=== PATIENT | male | born 1950 | race Caucasian/White ===

== ENCOUNTER → 2016-10-17 16:18 | Outpatient (CLI) | payer MEDICARE ==
[2015-02-26 12:28] VITALS: BMI 24.7
[~2016-10-17 16:18] MED LIST: ADOXA100 MG PO; AMBIEN10 MG PO; BROVANA15 MCG/2 M INH; FLOMAX0.4 MG PO; LANOXIN250 MCG PO; PROAIR HFA8.5 GM INH; PULMICORT0.25 MG/1 INH; SYNTHROID125 MCG PO; VITAMIN B-121000 MCG PO; ZOCOR40 MG PO
== END | disposition home or self-care (01) ==
LOC: D.MAMMO 09:30
DX: N63 Unspecified lump in breast (principal)

== ENCOUNTER → 2018-08-20 07:53 | Outpatient (CLI) | payer MEDICARE ==
[2015-02-26 12:28] VITALS: BMI 24.7
== END | disposition home or self-care (01) ==
LOC: D.HCCARDIO 07:53
DX: R94.31 Abnormal electrocardiogram [ECG] [EKG] (principal)

== ENCOUNTER 2018-12-02 03:12 | Inpatient (IN) | payer MEDICARE ==
[2018-12-02] VITALS (7 sets, daily range): BP systolic 102–117; BP diastolic 56–63; BMI 21.2
--- NOTE | 2018-12-02 03:28 | NUR ---
TRAUMA BAND # [id number] LAB AT BEDSIDE.
[2018-12-02 04:17] LABS: BASOPHILS 0.2 % (0-2); EOSINOPHILS 0.5 % (0-7); HEMATOCRIT 34.5 % (42.0-54.0); HEMOGLOBIN 11.2 g/dL (13.5-17.5); IMMATURE GRANULOCYTES 1.1 % (0-5); LYMPHOCYTES 13.8 % (15-50); MCH 33.7 pg (26.0-34.0); MCHC 32.5 g/dL (31.0-37.0); MCV 103.9 fL (80.0-100.0); MEAN PLATELET VOLUME 10.1 fL (7.4-10.4); NEUTROPHILS 73.4 % (40-80); RBC 3.32 10x6/uL (4.20-6.10); RDW 15.4 % (11.5-14.5); WBC 6.2 10x3/uL (4.8-10.8)
[2018-12-02 04:31] LABS: INR 1.01 (0.85-1.17); PLATELET COUNT 158 10x3/uL (130-400); PROTIME 12.8 SECONDS (11.6-15.0)
[2018-12-02 04:32] LABS: APTT 33.8 SECONDS (22.8-39.4)
[2018-12-02 04:37] LABS: ALBUMIN 2.3 g/dL (3.4-5.0); ANION GAP 9.4 mmol/L (8-16); BILIRUBIN - TOTAL 0.36 mg/dL (0.2-1.3); CALCIUM 8.8 mg/dL (8.5-10.1); CARBON DIOXIDE 32.1 mmol/L (21.0-32.0); CREATININE - SERUM 1.5 mg/dL (0.6-1.3); POTASSIUM - SERUM 4.5 mmol/L (3.5-5.1); PROTEIN - SERUM 7.2 g/dL (6.4-8.2)
[2018-12-02 04:52] LABS: CKMB 0.9 U/L (0.0-3.6); MAGNESIUM - SERUM 2.2 mg/dL (1.8-2.4); TROPONIN-I 0.022 ng/mL (0.000-0.060)
--- NOTE | 2018-12-02 07:07 | NUR ---
PT REPORT HANDED OFF AT BEDSIDE VIA SBAR TO KAYLEY MUNOZ
[2018-12-02 13:03] LABS: % SATURATION 16 % (15-55); IRON 31 ug/dl (35-150); TOTAL IRON BIND CAPACITY 186 ug/dl (260-445); UNSAT IRON BIND CAPACITY 155 ug/dl (150-375)
[2018-12-03] VITALS (14 sets, daily range): BP systolic 94–120; BP diastolic 36–72
[2018-12-03 05:27] LABS: BASOPHILS 0.2 % (0-2); EOSINOPHILS 2.7 % (0-7); HEMATOCRIT 30.7 % (42.0-54.0); HEMOGLOBIN 9.8 g/dL (13.5-17.5); IMMATURE GRANULOCYTES 0.8 % (0-5); LYMPHOCYTES 17.9 % (15-50); MCH 33.4 pg (26.0-34.0); MCHC 31.9 g/dL (31.0-37.0); MCV 104.8 fL (80.0-100.0); MEAN PLATELET VOLUME 10.3 fL (7.4-10.4); MONOCYTES 9.2 % (2-11); NEUTROPHILS 69.2 % (40-80); RBC 2.93 10x6/uL (4.20-6.10); RDW 15.5 % (11.5-14.5); WBC 5.2 10x3/uL (4.8-10.8)
[2018-12-03 05:33] LABS: PLATELET COUNT 118 10x3/uL (130-400)
[2018-12-03 05:49] LABS: ALBUMIN 1.8 g/dL (3.4-5.0); ANION GAP 7.8 mmol/L (8-16); BILIRUBIN - TOTAL 0.4 mg/dL (0.2-1.3); CALCIUM 8.7 mg/dL (8.5-10.1); CARBON DIOXIDE 32.5 mmol/L (21.0-32.0); CREATININE - SERUM 1.3 mg/dL (0.6-1.3); POTASSIUM - SERUM 4.3 mmol/L (3.5-5.1); PROTEIN - SERUM 6.9 g/dL (6.4-8.2)
--- NOTE | 2018-12-03 08:00 | NUR ---
PLASMA BLADE SET TO 6/8 BOVIE PAD LEFT THIGH [id number] EXP 03/14/2020
--- NOTE | 2018-12-03 10:32 | NUR ---
MARC WOULD LIKE US TO CALL HER WITH UPDATES CELL [phone]. IF EMERGENCY ARISES AND SHE CAN NOT BE REACHED MARIE HARGROVE CAN BE CONTACTED AT [phone].
[2018-12-03 11:13] LABS: FOLATE (FOLIC ACID) - SERUM >20.0 ng/mL (>3.0)
--- NOTE | 2018-12-03 12:51 | NUR ---
PATIENT HAS A COMPLAINT OF 8 AT THIS TIME. CONCERNED OVER BP IN HIGH 90/50S. EXPLAINED THIS TO HIM. HE VOICED UNDERSTANDING. WCTM
--- NOTE | 2018-12-03 15:05 | OP ---
PATIENT NAME: AMY DYER JR MEDICAL RECORD: [id number] :48 LOCATION:D.MS [id number] ADMISSION DATE:12/02/18 SURGEON: TONG BALDERRAMA DO DATE OF OPERATION: 12/03/2018 PROCEDURE PERFORMED: Right total hip arthroplasty. PREOPERATIVE DIAGNOSIS: Displaced closed right femoral neck fracture. POSTOPERATIVE DIAGNOSIS: Displaced closed right femoral neck fracture. INDICATIONS: Mr. Dyer is a 68-year-old male who has had a lung cancer in the past and a lobectomy. He has had the left hip replaced years ago. He was walking and fell yesterday after getting out of bed after getting up to get a drink and fell right onto his right hip, sustained a right femoral neck fracture, displaced. He was admitted to the hospital. X-rays were taken and it was noted. I consented him for a total hip as he said he is pretty active versus a bipolar and informed him of the risks and benefits including infection, bleeding, damage to nerves and vessels, blood clots, and even . He signed the consent. SURGEON: Tong Balderrama DO DESCRIPTION OF PROCEDURE: The patient was given a block by anesthesia in the preoperative area, taken to the operative suite, laid in supine position, given general anesthetic, sedated then intubated, given a gram of vancomycin due to his PENICILLIN ALLERGY. He was then moved over to the [place] table. The right hip was prepped and draped in sterile fashion. Timeout was performed, everyone was in agreement of the correct side, site, patient, and procedure. Incision then began over the tensor fascia patric muscle. Dissection was made down to the tensor fascia patric fascia. This was incised and taken superiorly and muscle inferiorly. Then, the interval between the rectus was developed and the ascending branch of the lateral femoral circumflex was encountered. It was coagulated with Aquamantys and tied and then divided. The capsule was then exposed. Hohmanns were placed on the inferior and superior part of the neck. Capsule was then opened and tagged. The Hohmanns were then moved into the inside of the capsule. I freshened up the neck cut due to the fracture and then the head was removed. Once head was removed, a Charnley was placed on the capsule superiorly, anteriorly, and posteriorly. The reaming then began up to a 56 cup. This was impacted in place, had good solid fixation. The liner was then put in. The femur was then exposed and first the canal finder, then the Proginet cutter was used. Then, broaching began up to a 12. This was trialled and seen to be a little small. Then we took that out and trialed up to 15 and then a standard neck was used. This seemed to fit well, had good lengths compared to the other side on AP pelvis. The trials were then removed. The actual implant was then impacted in, 15 stem, standard offset and a 44 dual mobility bearing was impacted in. The hip was then reduced and x-rays were taken and seen to be in very good position. The capsule was then closed with the tag stitch of #2 Ethibond and it was thoroughly irrigated and Surgicel powder and vancomycin and tobramycin powder was placed in the wound. The tensor fascia patric fascia was then closed using #1 Vicryl, first a [id number]-zhjse and then a running locking stitch. Skin was then closed with 2-0 Vicryl in an inverted interrupted fashion and a 4-0 Monocryl ran on the skin and then Prineo placed on the skin. The patient was then awakened and taken to recovery in stable condition. Blood loss approximately 300 mL. OPERATIVE REPORT [id number] AMY DYER JR COMPLICATIONS: None. TRANSINT:[id number] Voice Confirmation ID: [id number] DOCUMENT ID: [id number] TONG BALDERRAMA DO at 1505 CC: [id number] DICTATION DATE: 12/03/18909 TRAIN SYSTEM OPERATOR: 12/03/18 1344 ADM IN [facility] [address] [id number]
--- NOTE | 2018-12-03 16:20 | NUR ---
PATIENT HAS BEEN ATTEMPTING TO GET AHOLD OF TO TALK. FINALLY ABLE TO CONTACT HER. TRANSFERRED CALL INTO ROOM
--- NOTE | 2018-12-03 20:16 | NUR ---
PT IN BED LOW POSITION, EYES OPEN, TALKING ON PHONE, NO NEEDS NOTED, FLUIDS AND CALL LIGHT WITHIN REACH
--- NOTE | 2018-12-03 20:41 | NUR ---
PT REQUESTING PAIN MEDICATION, GAVE PRN 10MG OF OXYCODONE IR, PAIN 8 OF 10, FLUIDS AND CALL LIGHT WITHIN REACH
[2018-12-04 02:05] VITALS: BP 117/61
[2018-12-04 05:21] LABS: HEMATOCRIT 26.9 % (42.0-54.0); HEMOGLOBIN 8.6 g/dL (13.5-17.5); MCH 33.2 pg (26.0-34.0); MCV 103.9 fL (80.0-100.0); MEAN PLATELET VOLUME 10.2 fL (7.4-10.4); RBC 2.59 10x6/uL (4.20-6.10); RDW 15.1 % (11.5-14.5)
[2018-12-04 05:24] VITALS: BP 93/54
--- NOTE | 2018-12-04 07:55 | NUR ---
PT IS RESTING IN BED WITH EYES OPEN. RESPIRATIONS ARE EVEN AND UNLABORED. PT IS AAO X4. PT REPORTS SLIGHT PRESENCE OF PAIN TO RIGHT HIP, BUT DENIES NEEDS AT THIS TIME. DRESSING TO RIGHT HIP IS C/D/I. PT DENIES PRESENCE OF N/V. BED IS IN THE LOWEST POSITION. CALL LIGHT AND BEDSIDE TABLE ARE WITHIN REACH. SIDE RAILS X 2. BED ALARM IS ON. PT DENIES FURTHER NEEDS. WILL CONT TO MONITOR.
[2018-12-04 08:40] VITALS: BP 114/61
--- NOTE | 2018-12-04 12:10 | NUR ---
NUTRITION F/U CHART REVIEWED, PT VISIT. TOLERATING REG DIET WITH GOOD INTAKE RECENT MEALS. WILL CONTINUE TO PROVIDE DIET, HONOR FOOD PREFERENCES. RD FOLLOWING
[2018-12-04 12:40] VITALS: BP 134/73
--- NOTE | 2018-12-04 15:51 | NUR ---
PT IS DISORIENTED TO SITUATION, PLACE AND TIME. PT REORIENTED TO SITUATION PLACE AND TIME. BED ALARM IS ON AND WORKING. GÉNESIS WOLFE APRN NOTIFIED OF PT STATUS CHANGE.
--- NOTE | 2018-12-04 16:15 | MORECARE ---
CASE MANAGEMENT DISCHARGE SUMMARY PATIENT: AMY BRONSON JR UNIT: [id number] ADM DATE: 12/02/18 AGE: 68 : 49 SEX: M ROOM/BED: D.2204 AUTHOR: BLANCA GERONIMO PHYSICIAN: REFERRING PHYSICIAN: DMITRIY CORRAL MD DATE OF SERVICE: 12/04/18 Discharge Plan Patient Name: AMY BRONSON [facility] [facility] 1950 Planned Disposition: Group Home Facility Anticipated Discharge Date: Discharge Date: Expected LOS: Initial Reviewer: [email or web address] Initial Review Date: 12/02/2018 Generated: 12/04/18 5:15 pm DCPIA - Discharge Planning Initial Assessment Updated by [email or web address]: Maria Elena Edwards on 12/04/18 4:11 pm * Is the patient Alert and Oriented? Yes * PCP T[facility] * [facility] * Preadmission Environment Home with Family * ADLs Partial Dependent * Partial ADLs (Assistance needed) Dressing Toileting * Equipment Rolling Walker * List name and contact numbers for known caregivers / representatives who currently or will assist patient after discharge: MARC () [phone] * Verbal permission to speak to the caregivers and representatives has been obtained from the patient. Yes * Community resources currently utilized None * Additional services required to return to the preadmission environment? Yes * Can the patient safely return to the preadmission environment? No * Has this patient been hospitalized within the prior 30 days at any hospital? No External Providers External Provider: [facility] Next Contact Date: Service Request Date: Service Type: Resolution: Reviewer: Comments: Patient Name: AMY BRONSON Page 70312 at 1615 All edits/amendments must be made on the electronic document DICTATION DATE: 12/04/181613 SALES ENABLEMENT MANAGER: LEWIS 12/04/181613 RPT#: [id number] DC DATE: STATUS: ADM IN [facility] [address] [place] [address] END OF REPORT
--- NOTE | 2018-12-04 16:22 | MORECARE ---
CASE MANAGEMENT DISCHARGE SUMMARY PATIENT: AMY BRONSON JR UNIT: [id number] ADM DATE: 12/02/18 AGE: 68 : 49 SEX: M ROOM/BED: D.2204 AUTHOR: GRAZYNA,DOC PHYSICIAN: REFERRING PHYSICIAN: DMITRIY CORRAL MD DATE OF SERVICE: 12/04/18 Discharge Plan Patient Name: AMY BRONSON Facility: [facility]:[place] : 1950 Planned Disposition: Residential Facility Anticipated Discharge Date: Discharge Date: Expected LOS: Initial Reviewer: [email or web address] Initial Review Date: 12/02/2018 Generated: 12/04/18 5:21 pm Comments DCP- Discharge Planning Updated by [email or web address]: Maria Elena Edwards on 12/04/18 3:[address] Patient Name: AMY BRONSON Admission Status: ER Accout number: [id number] Admission Date: 12-02-2018 : 1950 Admission Diagnosis: Attending: DMITRIY CORRAL Current LOS: 2 Anticipated DC Date: Planned Disposition: Residential Facility Primary Insurance: [employer] ADV Discharge Planning Comments: CM met with patient to assess discharge planning needs. Patient is alert and oriented to person and time. He stated that he can go home and he will be fine. He lives with his Arianna and has a walker. I explained to him that therapy and nursing did not think he was safe to go home yet and will need to go to rehab, he said he would have help from his neighbor to help him move and he will be fine. Permission to call his . I called Arianna his and she stated that she can not take care of him at home. He needs more help that she can give, talked to her about skilled facilities she state [facility] in [place] his her first choice I have sent referral to them. IMM also explained. CM will continue to follow and assist with DC planning [facility]: Maria Elena Edwards DCPIA - Discharge Planning Initial Assessment Updated by [email or web address]: Maria Elena Edwards on 12/04/18 4:11 pm * Is the patient Alert and Oriented? Yes * PCP TUN[facility] * [facility] * Preadmission Environment Home with Family * ADLs Partial Dependent * Partial ADLs (Assistance needed) Dressing Toileting * Equipment Rolling Walker * List name and contact numbers for known caregivers / representatives who currently or will assist patient after discharge: ARIANNA () [phone] * Verbal permission to speak to the caregivers and representatives has been obtained from the patient. Yes * Community resources currently utilized None * Additional services required to return to the preadmission environment? Yes * Can the patient safely return to the preadmission environment? No * Has this patient been hospitalized within the prior 30 days at any hospital? No Coverage Notice Reviewer: [id number] Merna Edwards Notice Issued Date-Time: 12/04/2018 16:00 Notice Type: IM Discharge Notice Notice Delivered To: Patient Relationship to Patient: Spouse Specification Manager Name: arianna Delivery Method: PHONE - Phone Kera Days: Prior Verbal Notification: Yes Recipient Understood Notice: Recipient Signature: Med Rec Note Co-signed by Attending: Coverage Notice Comment: Reviewer: [id number] Edwards Notice Issued Date-Time: 12/04/2018 16:00 Notice Type: Patient Choice Letter Notice Delivered To: Family Member Relationship to Patient: Spouse Specification Manager Name: Arianna Delivery Method: PHONE - Phone Kera Days: Prior Verbal Notification: Yes Recipient Understood Notice: Recipient Signature: Med Rec Note Co-signed by Attending: Coverage Notice Comment: Last DP export: 12/04/18 3:15 p Patient Name: AMY BRONSON Page [phone] at 1622 All edits/amendments must be made on the electronic document DICTATION DATE: 12/04/181620 MEDICATION ASSISTANT: LEWIS 12/04/181620 RPT#: [id number] DC DATE: STATUS: ADM IN [facility] [address] [place] [address] END OF REPORT
--- NOTE | 2018-12-04 16:34 | NUR ---
PT IS ORIENTED TO SELF, AND SITUATION. PT IS DISORIENTED TO TIME AND PLACE. PT REORIENTED TO TIME AND PLACE. BED ALARM IS ON AND WORKING. BED IS IN THE LOWEST POSITION. CALL LIGHT AND BEDSIDE TABLE ARE WITHIN REACH. SIDE RAILS X 2.
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
[2018-12-04 17:34] VITALS: BP 102/44
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
--- NOTE | 2018-12-04 19:34 | NUR ---
DR CORRAL NOTIFIED OF PT STATUS AND BEHAVIOR. TELEPHONE ORDERS RECD ARE 5MG GEODON IM [id number] PRN.
[2018-12-04 19:56] LABS: APPEARANCE CLEAR (CLEAR); BILIRUBIN NEGATIVE (NEGATIVE); COLOR YELLOW (YELLOW); GLUCOSE NEGATIVE (NEGATIVE); KETONE NEGATIVE (NEGATIVE); NITRITE NEGATIVE (NEGATIVE); PROTEIN TRACE mg/dL (NEGATIVE); SPECIFIC GRAVITY 1.015 (1.005-1.020)
[2018-12-04 19:57] LABS: AMORPHOUS SEDIMENT >1+ /lpf (NONE SEEN); BACTERIA MODERATE /hpf (NONE SEEN); EPITHELIAL CELLS 0-5 /hpf (0-5); GRANULAR CAST 0-5 /lpf (NONE SEEN); HYALINE CAST RARE /lpf (NONE SEEN); RED CELLS - URINE 0-5 /hpf (0-5); WHITE CELLS - URINE 0-5 /hpf (0-5)
[2018-12-04 20:49] VITALS: BP 112/40
[2018-12-05] VITALS (9 sets, daily range): BP systolic 95–125; BP diastolic 44–63
--- NOTE | 2018-12-05 01:02 | NUR ---
ASSESSED AT THE BEGINNING OF THE SHIFT. PT WAS CONFUSED AND DEMANDING TO GO HOME. HIS FAMILY HAD COME TO SEE HIM AND HE WAS TRYING TO GET OUT OF BED AND DEMANDING THAT THEY TAKE HIM HOME. HE RECEIVED A DOSE OF HALDOL ORDERED BY MD TO HELP GET HIM CALMED DOWN. HIS FAMILY FINALLY LEFT AND HE WAS MAD AND TRYING TO GET UP TO LEAVE. AT THIS POINT WE GAVE HIM AN ORDERED DOSE OF GEODON. ONCE HE REALIZED HIS FAMILY HAD LEFT AND HE HAD NO WAY HOME HE QUIETED DOWN. HE HAS ALSO ASKED FOR PAIN MEDS AND AT THIS TIME IS RESTING QUIET.
[2018-12-05 04:19] LABS: HEMATOCRIT 26.6 % (42.0-54.0); HEMOGLOBIN 8.5 g/dL (13.5-17.5); MCH 33.2 pg (26.0-34.0); MCV 103.9 fL (80.0-100.0); MEAN PLATELET VOLUME 9.9 fL (7.4-10.4); RBC 2.56 10x6/uL (4.20-6.10); RDW 15.3 % (11.5-14.5); WBC 5.5 10x3/uL (4.8-10.8)
--- NOTE | 2018-12-05 10:40 | NUR ---
PT FOUND KNEELING BESIDE BED, ON KNEES. ROGERIO ALARM ON AND WORKING PROPERLY AT THIS TIME. PT WAS TRYING TO GET TO THE PHONE AT TIME OF INCIDENT. NO INJURIES NOTED AT THIS TIME. WILL CONTINUE TO MONITOR.
--- NOTE | 2018-12-05 15:37 | NUR ---
I have reviewed this patient and I concur with the Shift Assessment completed by the Licensed Practical Nurse today this shift.
--- NOTE | 2018-12-05 19:00 | NUR ---
REPORT RECEIVED AND CARE OF PT ASSUMED. PT LYING IN HIGH LAY'S POSITION WITH EYES CLOSED. IV IN LEFT FA PATENT WITH 1/2 NS INFUSING AT 100 ML / HR. TELEMETRY IN USE AND READING UNCONTROLLED A-FIB AT 112 AT THIS ASSESSMENT. WILL MONITOR FOR NEEDS.
--- NOTE | 2018-12-05 20:19 | NUR ---
HS MEDICATIONS GIVEN TO INCLUDE OXY PO PER REQUEST FOR PAIN. WILL CONTINUE TO MONITOR FOR NEEDS.
[2018-12-06 00:53] VITALS: BP 113/65
--- NOTE | 2018-12-06 02:34 | NUR ---
PT SLEEPING IN HIGH LAY'S POSITION WITH EYES CLOSED AND EASEY RESPIRATIONS. SIDE RAILS UP X2 AND BED ALARM IN USE FOR SAFETY.
[2018-12-06 05:41] LABS: BASOPHILS 0.1 % (0-2); EOSINOPHILS 2.1 % (0-7); HEMATOCRIT 25.5 % (42.0-54.0); HEMOGLOBIN 8.1 g/dL (13.5-17.5); LYMPHOCYTES 12.9 % (15-50); MCH 33.3 pg (26.0-34.0); MCHC 31.8 g/dL (31.0-37.0); MCV 104.9 fL (80.0-100.0); MEAN PLATELET VOLUME 10.2 fL (7.4-10.4); NEUTROPHILS 72.9 % (40-80); PLATELET COUNT 149 10x3/uL (130-400); RBC 2.43 10x6/uL (4.20-6.10); RDW 15.5 % (11.5-14.5)
[2018-12-06 05:50] LABS: WBC 7.1 10x3/uL (4.8-10.8)
[2018-12-06 06:01] VITALS: BP 102/46
[2018-12-06 09:08] VITALS: BP 117/65
--- NOTE | 2018-12-06 12:18 | CN ---
PATIENT NAME:AMY BRONSON JR MEDICAL RECORD: [id number] : 48 LOCATION:D.MS Rader2204 ADMIT DATE: 12/02/18 ACCOUNT: [id number] CONSULTING PHYSICIAN: DIXIE TOBIN MD REFERRING PHYSICIAN: DMITRIY CORRAL MD DATE OF CONSULTATION: 12/05/2018 Psychiatric Consultation IDENTIFYING DATA: The patient is 68 years old and he was admitted to the hospital secondary to a hip fracture. CHIEF COMPLAINT: "I want to go home." HISTORY OF PRESENT ILLNESS: The patient presents a very difficult situation that is complex and I shall try to summarize it as concisely as possible. He is clearly a low functioning individual well below average in intelligence who is also quite determined when he makes his mind up about something. He is telling me that he has to go home because he is going to be homeless and he has to pay the bills. The long and short of this situation is I called the and spoken with her as the patient says she does not drive and only he can pay the bills because the $1500 check he gets is made out to him. He cannot sign it and deposit it in the bank because he does not have a bank account. Every month, he takes his check to one of these check cashing facilities and with his identification signs in front of them, they give him the bach and then he disperses it to pay his bills as appropriate either with bach or money order. He has no arrangements for any alternative. He has children who live out of state. Neither of them want anything to do with him for reasons that are unknown. The does not drive. She is clearly a low functioning when I speak with her on the phone. Her primary concern is how do I get his check cashed and pay the bills. She says she cannot care for him and that she was having trouble caring for him before he came to the hospital. She says that he drinks, but does not want anyone to know that she is telling us that. She says that he is not threatening, abusive, or acting bizarre in any way, but he often will just simply do things that are contrary to what he has been asked to do in a manner that are almost is as though he is deliberately being difficult. She says that he takes pain medicines and Ambien at home and that she notices confusion when he does this. The patient is unable to walk. She says she cannot care for him. The patient says he wants us to call an ambulance to take him home. Obviously, there is no one who can come and get him and he cannot walk out the door because he cannot walk. He just had hip surgery and in fact he fell today when he tried to get up and walk. He does not want to hurt himself. He does not want to hurt anyone else. He is not threatening toward anyone. He does have some clear evidence of confusion. MENTAL STATUS EXAMINATION: The patient is awake, alert and oriented to person, place and situation. He is mistaken about the date. He tells me the year is . When asked if that means 1918 or something else. He says no, 1918. He does know it is November. He does not know what day. He knows that he knows why he is in the hospital. He knows that he has had surgery. He says that he does not want to do anything except go home and pay his bills. He also says that he does not drink, which contradicts what his has said behind his back and he denies that he wants to hurt anyone else or has any psychotic symptoms, which is consistent with what his says. CONSULT REPORT [id number] AMY BRONSON JR ASSESSMENT: Delirium secondary to multiple factors. 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 I do not think he is currently capable of making reasonable informed consent decisions about his person or state and he is clearly unable to walk. I have told him that he is not going to go home that he needs to go to rehab and follow the instructions that rehabilitation is going to give him about getting stronger. In addition to this, I have made some recommendations regarding pharmacology. I am going to give him a low dose of an antipsychotic medication along with a scheduled dose of Klonopin to assist with his anxiety and thought disorganization. Also, a p.r.n. dose of Geodon has been ordered in case he becomes agitated. Currently, he does not meet criteria for an inpatient psychiatric stay based upon the absence of acute dangerousness. I think he is delirious and that if given another day or two in the hospital his cognition should hopefully clear enough to where he will understand that he has to have rehabilitative services in order to be able to walk again. I am not sure if anything can be done from a social work standpoint to assist him with the check and the bills that he is so focused on. Overall, I think his prognosis is fairly guarded and unless he will begin assisting with his own recovery by working in physical and occupational therapy. TRANSINT:[id number] Voice Confirmation ID: [id number] DOCUMENT ID: [id number] DIXIE TOBIN MD at 1218 CC: [id number] DICTATION DATE: 12/05/18 1540 PRINTED CIRCUIT LAYOUT TAPER: 12/06/18 0016 ADM IN [facility] [address] [place] [address]
[2018-12-06 12:53] VITALS: BP 109/56
--- NOTE | 2018-12-06 13:50 | NUR ---
RECEIVED REPORT FROM LUCILA ARAUJO TO TAKE OVER HER PATIENT AT THIS TIME, PT IS IN STABLE CONDITON CL IN REACH
[2018-12-06 18:39] VITALS: BP 110/54
--- NOTE | 2018-12-06 19:00 | NUR ---
REPORT RECEIVED AND CARE OF PT ASSUMED. PT LYING IN HIGH LAY'S POSITION WATCHING TV. IV IN LEFT FA PATENT WITH 1/2 NS INFUSING AT 50 ML / HR. TELEMETRY IN PLACE AND READING 96 CONT A-FIB AT THIS ASSESSMENT. WILL MONITOR FOR NEEDS.
[2018-12-06 19:53] VITALS: BP 100/53
--- NOTE | 2018-12-06 21:32 | NUR ---
HS MEDICATIONS GIVEN TO INCLUDE OXY 5 MG PO PER REQUEST FOR PAIN. WILL CONTINUE TO MONITOR FOR NEEDS.
[2018-12-07 00:59] VITALS: BP 102/69
[2018-12-07 04:58] VITALS: BP 92/42
[2018-12-07 05:35] LABS: BASOPHILS 0.1 % (0-2); EOSINOPHILS 2.6 % (0-7); HEMATOCRIT 24.9 % (42.0-54.0); HEMOGLOBIN 7.8 g/dL (13.5-17.5); LYMPHOCYTES 11.6 % (15-50); MCH 33.1 pg (26.0-34.0); MCHC 31.3 g/dL (31.0-37.0); MCV 105.5 fL (80.0-100.0); MEAN PLATELET VOLUME 10.5 fL (7.4-10.4); NEUTROPHILS 71.7 % (40-80); RBC 2.36 10x6/uL (4.20-6.10); RDW 15.7 % (11.5-14.5); WBC 7.3 10x3/uL (4.8-10.8)
[2018-12-07 05:42] LABS: PLATELET COUNT 179 10x3/uL (130-400)
[2018-12-07 05:51] LABS: ANION GAP 14.7 mmol/L (8-16); CALCIUM 8.6 mg/dL (8.5-10.1); CARBON DIOXIDE 27.2 mmol/L (21.0-32.0); CREATININE - SERUM 1.8 mg/dL (0.6-1.3); POTASSIUM - SERUM 3.9 mmol/L (3.5-5.1)
[2018-12-07 09:26] VITALS: BP 112/51
[2018-12-07 13:27] VITALS: BP 96/59
--- NOTE | 2018-12-07 14:20 | NUR ---
OT NOTE: ASSISTED BACK TO BED WITH WALKER AND MIN/MOD ASSIST; PT URINATED ON HIMSELF DURING TRANSFER..PROVIDED NEW GOWN AND MIN ASSIST TO RAMSEY; CLEAN SOCKS AND MOD ASSIST TO RAMSEY. ABLE TO WASH HANDS, FACE, AND UPPER BODY WITH CLOTH WITH SET UP. PT ORIENTED TO PERSON AND PLACE..DISORIENTED TO TIME. ERIKA VOSS, OTR/L
[2018-12-07 18:09] VITALS: BP 97/63
--- NOTE | 2018-12-07 18:12 | MORECARE ---
CASE MANAGEMENT DISCHARGE SUMMARY PATIENT: AMY BRONSON JR UNIT: [id number] ADM DATE: 12/02/18 AGE: 68 : 49 SEX: M ROOM/BED: D.2204 AUTHOR: GRAZYNA,DOC PHYSICIAN: REFERRING PHYSICIAN: DMITRIY CORRAL MD DATE OF SERVICE: 12/07/18 Discharge Plan Patient Name: AMY BRONSON Facility: [facility]:[place] : 1950 Planned Disposition: Alf Facility Anticipated Discharge Date: Discharge Date: Expected LOS: Initial Reviewer: [id number] Initial Review Date: 12/02/2018 Generated: 12/07/18 7:12 pm Comments DCP- Discharge Planning Updated by [id number]: Janine Murphy on 12/07/18 5:[address] PRIMARY NURSE REPORTS THAT THE PATIENT'S CALLED AND SAID ALL THE UTILITIES ARE OFF AND THEY HAVE 3 DAYS TO GET THEIR BELONGINGS OUT. PATIENT IS VERY UPSET WANTING TO LEAVE. HE HAS A RAPID HEART RATE. HE IS IN UNCONTROLLED AFIB. TELEMETRY. STARTED CARDIZEM 30 MGM Q6H ON 12/06. HE ALSO HAS DECREASING H/H. IS ON 4/L NASAL O2. THE NURSE CALLED AND SPOKE WITH THE DAUGHTER. PATIENT'S IS WITH HER. REPORTEDLY THE PATIENT HAS A CHECK. HE MUST GALE TO PAY BILLS. QUESTION OF CIRCUMSTANCE OF HOUSING AND HIS CARE PRIOR TO ADMIT. POSSIBLE APS . REPORTEDLY THE PATIENT HAD BEEN HOME ALONE. WAS UNKEMPT ON ADMISSION. ?? MENTAL HEALTH ISSUES W/ . AMBULANCE CREW MAY HAVE DONE REPORT. WILL NEED TO F/U [facility] MAIN OFFICE IN [place] ON SATURDAY. DCP- Discharge Planning Updated by [id number]: Maria Elena Edwards on 12/04/18 3:[address] Patient Name: AMY BRONSON Admission Status: ER Accout number: [id number] Admission Date: 12-02-2018 : 1950 Admission Diagnosis: Attending: DMITRIY CORRAL Current LOS: 2 Anticipated DC Date: Planned Disposition: Alf Facility Primary Insurance: WELL[employer] MEDICARE ADV Discharge Planning Comments: CM met with patient to assess discharge planning needs. Patient is alert and oriented to person and time. He stated that he can go home and he will be fine. He lives with his Arianna and has a walker. I explained to him that therapy and nursing did not think he was safe to go home yet and will need to go to rehab, he said he would have help from his neighbor to help him move and he will be fine. Permission to call his . I called Arianna his and she stated that she can not take care of him at home. He needs more help that she can give, talked to her about skilled facilities she state [facility] in [place] his her first choice I have sent referral to them. IMM also explained. CM will continue to follow and assist with DC planning Editorial Cartoonist: Maria Elena Edwards DCPIA - Discharge Planning Initial Assessment Updated by [id number]: Maria Elena Edwards on 12/04/18 4:11 pm * Is the patient Alert and Oriented? Yes * PCP [facility] * [facility] * Preadmission Environment Home with Family * ADLs Partial Dependent * Partial ADLs (Assistance needed) Dressing Toileting * Equipment Rolling Walker * List name and contact numbers for known caregivers / representatives who currently or will assist patient after discharge: ARIANNA () [phone] * Verbal permission to speak to the caregivers and representatives has been obtained from the patient. Yes * Community resources currently utilized None * Additional services required to return to the preadmission environment? Yes * Can the patient safely return to the preadmission environment? No * Has this patient been hospitalized within the prior 30 days at any hospital? No Coverage Notice Reviewer: [id number] Merna Edwards Notice Issued Date-Time: 12/04/2018 16:00 Notice Type: IM Discharge Notice Notice Delivered To: Patient Relationship to Patient: Spouse Supervisor Show Operations Name: arianna Delivery Method: PHONE - Phone Kera Days: Prior Verbal Notification: Yes Recipient Understood Notice: Recipient Signature: Med Rec Note Co-signed by Attending: Coverage Notice Comment: Reviewer: [id number] Merna Edwards Notice Issued Date-Time: 12/04/2018 16:00 Notice Type: Patient Choice Letter Notice Delivered To: Family Member Relationship to Patient: Spouse Supervisor Show Operations Name: Arianna Delivery Method: PHONE - Phone Kera Days: Prior Verbal Notification: Yes Recipient Understood Notice: Recipient Signature: Med Rec Note Co-signed by Attending: Coverage Notice Comment: Last DP export: 12/04/18 3:22 p Patient Name: AMY BRONSON Page [id number] at 1812 All edits/amendments must be made on the electronic document DICTATION DATE: 12/07/181810 PROTECTIVE SIGNAL SUPERINTENDENT: LEWIS 12/07/181810 RPT#: [id number] DC DATE: STATUS: ADM IN [facility] [address] [place] [address] END OF REPORT
--- NOTE | 2018-12-07 19:00 | NUR ---
REPORT RECEIVED AND CARE OF PT ASSUMED. PT LYING IN HIGH LAY'S POSITION WATCHING TV. IV IN LEFT FA PATENT WITH 1/2 NS INFUSING AT 100 ML / HR. TELEMETRY IN PLACE AND READING 88 CONTROLLED A-FIB AT THIS ASSESSMENT. DRESSING ON RIGHT HIP CLEAN AND DRY. WILL MONITOR FOR NEEDS.
--- NOTE | 2018-12-07 19:50 | NUR ---
I have reviewed this patient and I concur with the Shift Assessment completed by the Licensed Practical Nurse today this shift.
--- NOTE | 2018-12-07 20:39 | NUR ---
HS MEDICATIONS GIVEN. WILL CONTINUE TO MONITOR FOR NEEDS.
[2018-12-07 21:05] VITALS: BP 115/52
[2018-12-08] VITALS (23 sets, daily range): BP systolic 94–129; BP diastolic 46–74
[2018-12-08 05:18] LABS: BASOPHILS 0.2 % (0-2); EOSINOPHILS 1.4 % (0-7); HEMATOCRIT 24.3 % (42.0-54.0); HEMOGLOBIN 7.6 g/dL (13.5-17.5); LYMPHOCYTES 10.5 % (15-50); MCH 32.9 pg (26.0-34.0); MCHC 31.3 g/dL (31.0-37.0); MCV 105.2 fL (80.0-100.0); MEAN PLATELET VOLUME 9.7 fL (7.4-10.4); MONOCYTES 11.5 % (2-11); NEUTROPHILS 72.4 % (40-80); PLATELET COUNT 168 10x3/uL (130-400); RBC 2.31 10x6/uL (4.20-6.10); RDW 15.7 % (11.5-14.5); WBC 6.5 10x3/uL (4.8-10.8)
[2018-12-08 05:32] LABS: ANION GAP 11.5 mmol/L (8-16); CALCIUM 7.9 mg/dL (8.5-10.1); CARBON DIOXIDE 26.3 mmol/L (21.0-32.0); CREATININE - SERUM 1.7 mg/dL (0.6-1.3); POTASSIUM - SERUM 3.8 mmol/L (3.5-5.1)
--- NOTE | 2018-12-08 07:45 | NUR ---
PT SITTING UP IN BED. NO ACUTE DISTRESS NOTED. O2 @ 3L NC IN PLACE. REPORTS PAIN 04/21. EDUCATED PT PAIN MEDICATION ADMINISTERED @ 0620. PT VOICES UNDERSTANDING. IV TO LEFT FOREARM WITH 1/2 NS @ 100ML/HR INFUSING VIA PUMP. SITE WITHOUT REDNESS OR EDEMA. DENIES FURTHER NEEDS AT THIS TIME. CL WITHIN REACH. ECOURAGED TO CALL WITH NEEDS. CONTINUE POC
--- NOTE | 2018-12-08 09:01 | MORECARE ---
CASE MANAGEMENT DISCHARGE SUMMARY PATIENT: AMY BRONSON JR UNIT: [id number] ADM DATE: 12/02/18 AGE: 68 : 49 SEX: M ROOM/BED: D.2204 AUTHOR: GRAZYNA,DOC PHYSICIAN: REFERRING PHYSICIAN: DMITRIY CORRAL MD DATE OF SERVICE: 12/08/18 Discharge Plan Patient Name: AMY BRONSON Facility: [facility]:[place] : 1950 Planned Disposition: Custodial Facility Anticipated Discharge Date: Discharge Date: Expected LOS: Initial Reviewer: [id number] Initial Review Date: 12/02/2018 Generated: 12/08/18 10:01 am DCP- Discharge Planning Updated by [id number]: Maria Elena Edwards on 12/08/18 7:[address] updated clinicals sent to [facility] DCP- Discharge Planning Updated by [id number]: Janine Murphy on 12/07/18 5:[address] PRIMARY NURSE REPORTS THAT THE PATIENT'S CALLED AND SAID ALL THE UTILITIES ARE OFF AND THEY HAVE 3 DAYS TO GET THEIR BELONGINGS OUT. PATIENT IS VERY UPSET WANTING TO LEAVE. HE HAS A RAPID HEART RATE. HE IS IN UNCONTROLLED AFIB. TELEMETRY. STARTED CARDIZEM 30 MGM Q6H ON 12/06. HE ALSO HAS DECREASING H/H. IS ON 4/L NASAL O2. THE NURSE CALLED AND SPOKE WITH THE DAUGHTER. PATIENT'S IS WITH HER. REPORTEDLY THE PATIENT HAS A CHECK. HE MUST GALE TO PAY BILLS. QUESTION OF CIRCUMSTANCE OF HOUSING AND HIS CARE PRIOR TO ADMIT. POSSIBLE APS . REPORTEDLY THE PATIENT HAD BEEN HOME ALONE. WAS UNKEMPT ON ADMISSION. ?? MENTAL HEALTH ISSUES W/ . AMBULANCE CREW MAY HAVE DONE REPORT. WILL NEED TO F/U [facility] MAIN OFFICE IN [place] ON SATURDAY. DCP- Discharge Planning Updated by [id number]: Maria Elena Edwards on 12/04/18 3:[address] Patient Name: AMY BRONSON Admission Status: ER Accout number: [id number] Admission Date: 12-02-2018 : 1950 Admission Diagnosis: Attending: DMITRIY CORRAL Current LOS: 2 Anticipated DC Date: Planned Disposition: Custodial Facility Primary Insurance: WELL[employer] MEDICARE ADV Discharge Planning Comments: CM met with patient to assess discharge planning needs. Patient is alert and oriented to person and time. He stated that he can go home and he will be fine. He lives with his Arianna and has a walker. I explained to him that therapy and nursing did not think he was safe to go home yet and will need to go to rehab, he said he would have help from his neighbor to help him move and he will be fine. Permission to call his . I called Arianna his and she stated that she can not take care of him at home. He needs more help that she can give, talked to her about skilled facilities she state [facility] in [place] his her first choice I have sent referral to them. IMM also explained. CM will continue to follow and assist with DC planning Residence Counselor: Maria Elena Edwards DCPIA - Discharge Planning Initial Assessment Updated by [id number]: Maria Elena Edwards on 12/04/18 4:11 pm * Is the patient Alert and Oriented? Yes * PCP [facility] * [facility] * Preadmission Environment Home with Family * ADLs Partial Dependent * Partial ADLs (Assistance needed) Dressing Toileting * Equipment Rolling Walker * List name and contact numbers for known caregivers / representatives who currently or will assist patient after discharge: ARIANNA () [phone] * Verbal permission to speak to the caregivers and representatives has been obtained from the patient. Yes * Community resources currently utilized None * Additional services required to return to the preadmission environment? Yes * Can the patient safely return to the preadmission environment? No * Has this patient been hospitalized within the prior 30 days at any hospital? No Coverage Notice Reviewer: [id number] Merna Edwards Notice Issued Date-Time: 12/04/2018 16:00 Notice Type: IM Discharge Notice Notice Delivered To: Patient Relationship to Patient: Spouse Stripper And Printer Name: arianna Delivery Method: PHONE - Phone Kera Days: Prior Verbal Notification: Yes Recipient Understood Notice: Recipient Signature: Med Rec Note Co-signed by Attending: Coverage Notice Comment: Reviewer: [id number] Merna Edwards Notice Issued Date-Time: 12/04/2018 16:00 Notice Type: Patient Choice Letter Notice Delivered To: Family Member Relationship to Patient: Spouse Stripper And Printer Name: Arianna Delivery Method: PHONE - Phone Kera Days: Prior Verbal Notification: Yes Recipient Understood Notice: Recipient Signature: Med Rec Note Co-signed by Attending: Coverage Notice Comment: Last DP export: 12/07/18 5:12 p Patient Name: AMY BRONSON Page [id number] at 0901 All edits/amendments must be made on the electronic document DICTATION DATE: 12/08/18900 QUALITY CONTROL REPRESENTATIVE: LEWIS 12/08/18900 RPT#: [id number] DC DATE: STATUS: ADM IN [facility] [address] [place] [address] END OF REPORT
--- NOTE | 2018-12-08 15:36 | NUR ---
OT NOTE: PT RECEIVING BLOOD IN PM.. WILL ATTEMPT TOMORROW. ERIKA VOSS, OTR/L
--- NOTE | 2018-12-09 02:32 | NUR ---
2020)TRANSFUSION COMPLETE. NO SIGNS OR SYMPTOMS OF TRANFUSION REACTION OBSERVED.CONFUSED TO TIME AND PLACE.WILL CONTINUE TO MONITOR FOR ANY CHGES.AND FOLLOW CURRENT PLAN OF CARE.
[2018-12-09 04:00] VITALS: BP 98/61
[2018-12-09 05:37] LABS: BASOPHILS 0.2 % (0-2); EOSINOPHILS 0.5 % (0-7); IMMATURE GRANULOCYTES 6.2 % (0-5); MCH 31.6 pg (26.0-34.0); MCHC 32.9 g/dL (31.0-37.0); MEAN PLATELET VOLUME 10.2 fL (7.4-10.4); MONOCYTES 12.7 % (2-11); NEUTROPHILS 70.4 % (40-80); RDW 20.2 % (11.5-14.5)
[2018-12-09 05:47] LABS: HEMATOCRIT 31.9 % (42.0-54.0); HEMOGLOBIN 10.5 g/dL (13.5-17.5); MCV 96.1 fL (80.0-100.0); PLATELET COUNT 204 10x3/uL (130-400); RBC 3.32 10x6/uL (4.20-6.10); WBC 11.1 10x3/uL (4.8-10.8)
[2018-12-09 05:56] LABS: ANION GAP 11.8 mmol/L (8-16); CALCIUM 8.1 mg/dL (8.5-10.1); CARBON DIOXIDE 26.3 mmol/L (21.0-32.0); CREATININE - SERUM 1.7 mg/dL (0.6-1.3); POTASSIUM - SERUM 4.1 mmol/L (3.5-5.1)
--- NOTE | 2018-12-09 07:11 | NUR ---
I have reviewed this patient and I concur with the Shift Assessment completed by the Licensed Practical Nurse today this shift.
--- NOTE | 2018-12-09 07:38 | NUR ---
AWAKE AND ALERT. ORIENTED X3. REQUESTED AND GIVNE 10MG OXY IR PO FOR C/O RIGHT HIP PAIN LEVEL 6. WILL MONITOR. LUNGS HAVE CRACKELS THROUGHOUT. INSTRUCTED IN USE OF IS. REPORTS PRODUCTIVE COUGH. SKIN IS INTACT WITHOUT REDNESS EXCEPT INCISION TO RIGHT HIP WHICH HAS A DRY INTACT DRESSING IN PLACE. IV TO LEFT FOREARM IS PATENT WITHOUT REDNESS AT INSERTION SITE. DENIES NEEDS.
[2018-12-09 09:14] VITALS: BP 125/53
--- NOTE | 2018-12-09 11:22 | NUR ---
DR. MOMIN NOTIFIED OF CHANGE IN HEART RATE. NO NEW ORDERS.
--- NOTE | 2018-12-09 12:30 | NUR ---
SITTING UP IN CHIAR EATING LUNCH. ADDISON SALVADOR.
--- NOTE | 2018-12-09 14:00 | NUR ---
BACK TO BED WITH ONE PERSON MIN ASSIST. POSITIONED IN BED FOR COMFORT. DENIES NEEDS.
--- NOTE | 2018-12-09 14:13 | NUR ---
Nutrition Follow Up: Chart reviewed Diet: Regular PO Intake: 55% meal avg No BM since admit - x 7 days Meds and labs reviewed Rec continue current diet. Will order Ensure with meals. RD following.
--- NOTE | 2018-12-09 15:55 | MORECARE ---
CASE MANAGEMENT DISCHARGE SUMMARY PATIENT: AMY BRONSON JR UNIT: [id number] ADM DATE: 12/02/18 AGE: 68 : 49 SEX: M ROOM/BED: D.2204 AUTHOR: GRAZYNA,DOC PHYSICIAN: REFERRING PHYSICIAN: DMITRIY CORRAL MD DATE OF SERVICE: 12/09/18 Discharge Plan Patient Name: AMY BRONSON Facility: [facility]:[place] : 1950 Planned Disposition: Custodial Facility Anticipated Discharge Date: Discharge Date: Expected LOS: Initial Reviewer: [id number] Initial Review Date: 12/02/2018 Generated: 12/09/18 4:55 pm Comments DCP- Discharge Planning Updated by [id number]: Maria Elena Edwards on 12/09/18 2:[address] [facility] SENT DCP- Discharge Planning Updated by [id number]: Maria Elena Edwards on 12/08/18 7:[address] updated clinicals sent to [facility] DCP- Discharge Planning Updated by [id number]: Janine Murphy on 12/07/18 5:[address] PRIMARY NURSE REPORTS THAT THE PATIENT'S CALLED AND SAID ALL THE UTILITIES ARE OFF AND THEY HAVE 3 DAYS TO GET THEIR BELONGINGS OUT. PATIENT IS VERY UPSET WANTING TO LEAVE. HE HAS A RAPID HEART RATE. HE IS IN UNCONTROLLED AFIB. TELEMETRY. STARTED CARDIZEM 30 MGM Q6H ON 12/06. HE ALSO HAS DECREASING H/H. IS ON 4/L NASAL O2. THE NURSE CALLED AND SPOKE WITH THE DAUGHTER. PATIENT'S IS WITH HER. REPORTEDLY THE PATIENT HAS A CHECK. HE MUST GALE TO PAY BILLS. QUESTION OF CIRCUMSTANCE OF HOUSING AND HIS CARE PRIOR TO ADMIT. POSSIBLE APS . REPORTEDLY THE PATIENT HAD BEEN HOME ALONE. WAS UNKEMPT ON ADMISSION. ?? MENTAL HEALTH ISSUES W/ . AMBULANCE CREW MAY HAVE DONE REPORT. WILL NEED TO F/U [facility] MAIN OFFICE IN [place] ON SATURDAY. DCP- Discharge Planning Updated by [id number]: Maria Elena Edwards on 12/04/18 3:[address] Patient Name: AMY BRONSON Admission Status: ER Accout number: [id number] Admission Date: 12-02-2018 : 1950 Admission Diagnosis: Attending: DMITRIY CORRAL Current LOS: 2 Anticipated DC Date: Planned Disposition: Custodial Facility Primary Insurance: WELLCARE MEDICARE ADV Discharge Planning Comments: CM met with patient to assess discharge planning needs. Patient is alert and oriented to person and time. He stated that he can go home and he will be fine. He lives with his Arianna and has a walker. I explained to him that therapy and nursing did not think he was safe to go home yet and will need to go to rehab, he said he would have help from his neighbor to help him move and he will be fine. Permission to call his . I called Arianna his and she stated that she can not take care of him at home. He needs more help that she can give, talked to her about skilled facilities she state [facility] in [place] his her first choice I have sent referral to them. IMM also explained. CM will continue to follow and assist with DC planning Technology Lead: Maria Elena Edwards DCPIA - Discharge Planning Initial Assessment Updated by [id number]: Maria Elena Edwards on 12/04/18 4:11 pm * Is the patient Alert and Oriented? Yes * PCP [facility] * [facility] * Preadmission Environment Home with Family * ADLs Partial Dependent * Partial ADLs (Assistance needed) Dressing Toileting * Equipment Rolling Walker * List name and contact numbers for known caregivers / representatives who currently or will assist patient after discharge: ARIANNA () [phone] * Verbal permission to speak to the caregivers and representatives has been obtained from the patient. Yes * Community resources currently utilized None * Additional services required to return to the preadmission environment? Yes * Can the patient safely return to the preadmission environment? No * Has this patient been hospitalized within the prior 30 days at any hospital? No External Providers External Provider: [facility] Next Contact Date: Service Request Date: Service Type: Resolution: Reviewer: Comments: Coverage Notice Reviewer: [id number] - Maria Elena Edwards Notice Issued Date-Time: 12/04/2018 16:00 Notice Type: IM Discharge Notice Notice Delivered To: Patient Relationship to Patient: Spouse Control Room Helper Name: arianna Delivery Method: PHONE - Phone Kera Days: Prior Verbal Notification: Yes Recipient Understood Notice: Recipient Signature: Med Rec Note Co-signed by Attending: Coverage Notice Comment: Reviewer: [id number] - Maria Elena Edwards Notice Issued Date-Time: 12/04/2018 16:00 Notice Type: Patient Choice Letter Notice Delivered To: Family Member Relationship to Patient: Spouse Control Room Helper Name: Arianna Delivery Method: PHONE - Phone Kera Days: Prior Verbal Notification: Yes Recipient Understood Notice: Recipient Signature: Med Rec Note Co-signed by Attending: Coverage Notice Comment: Last DP export: 12/08/18 8:01 a Patient Name: AMY BRONSON Page [id number] at 1555 All edits/amendments must be made on the electronic document DICTATION DATE: 12/09/181553 SEAFOOD SPECIALIST: LEWIS 12/09/181553 RPT#: [id number] DC DATE: STATUS: ADM IN [facility] [address] [place] [address] END OF REPORT
--- NOTE | 2018-12-09 16:24 | MORECARE ---
CASE MANAGEMENT DISCHARGE SUMMARY PATIENT: AMY BRONSON JR UNIT: [id number] ADM DATE: 12/02/18 AGE: 68 : 49 SEX: M ROOM/BED: D.2204 AUTHOR: GRAZYNA,DOC PHYSICIAN: REFERRING PHYSICIAN: DMITRIY CORRAL MD DATE OF SERVICE: 12/09/18 Discharge Plan Patient Name: AMY BRONSON Facility: [facility]:[place] : 1950 Planned Disposition: Senior Care Facility Anticipated Discharge Date: Discharge Date: Expected LOS: Initial Reviewer: [email or web address] Initial Review Date: 12/02/2018 Generated: 12/09/18 5:23 pm Comments DCP- Discharge Planning Updated by [email or web address]: Maria Elena Edwards on 12/09/18 3:[address] ATTEMPTED TO CALL RICHARD (SON) BACK ASKED, BUT THERE WAS NOT AN ANSWER. RICHARD # [phone] DCP- Discharge Planning Updated by [id number]: Maria Elena Edwards on 12/09/18 2:[address] [facility] SENT DCP- Discharge Planning Updated by [id number]: Maria Elena Edwards on 12/08/18 7:[address] updated clinicals sent to [facility] DCP- Discharge Planning Updated by [id number]: Janine Murphy on 12/07/18 5:[address] PRIMARY NURSE REPORTS THAT THE PATIENT'S CALLED AND SAID ALL THE UTILITIES ARE OFF AND THEY HAVE 3 DAYS TO GET THEIR BELONGINGS OUT. PATIENT IS VERY UPSET WANTING TO LEAVE. HE HAS A RAPID HEART RATE. HE IS IN UNCONTROLLED AFIB. TELEMETRY. STARTED CARDIZEM 30 MGM Q6H ON 12/06. HE ALSO HAS DECREASING H/H. IS ON 4/L NASAL O2. THE NURSE CALLED AND SPOKE WITH THE DAUGHTER. PATIENT'S IS WITH HER. REPORTEDLY THE PATIENT HAS A CHECK. HE MUST GALE TO PAY BILLS. QUESTION OF CIRCUMSTANCE OF HOUSING AND HIS CARE PRIOR TO ADMIT. POSSIBLE APS . REPORTEDLY THE PATIENT HAD BEEN HOME ALONE. WAS UNKEMPT ON ADMISSION. ?? MENTAL HEALTH ISSUES W/ . AMBULANCE CREW MAY HAVE DONE REPORT. WILL NEED TO F/U [facility] MAIN OFFICE IN [place] ON SATURDAY. DCP- Discharge Planning Updated by [id number]: Maria Elena Edwards on 12/04/18 3:[address] Patient Name: AMY BRONSON Admission Status: ER Accout number: [id number] Admission Date: 12-02-2018 : 1950 Admission Diagnosis: Attending: DMITRIY CORRAL Current LOS: 2 Anticipated DC Date: Planned Disposition: Senior Care Facility Primary Insurance: WELLCARE MEDICARE ADV Discharge Planning Comments: CM met with patient to assess discharge planning needs. Patient is alert and oriented to person and time. He stated that he can go home and he will be fine. He lives with his Arianna and has a walker. I explained to him that therapy and nursing did not think he was safe to go home yet and will need to go to rehab, he said he would have help from his neighbor to help him move and he will be fine. Permission to call his . I called Arianna his and she stated that she can not take care of him at home. He needs more help that she can give, talked to her about skilled facilities she state [facility] in [place] his her first choice I have sent referral to them. IMM also explained. CM will continue to follow and assist with DC planning Social Work Job Titles: Maria Elena Edwards DCPIA - Discharge Planning Initial Assessment Updated by [id number]: Maria Elena Edwards on 12/04/18 4:11 pm * Is the patient Alert and Oriented? Yes * PCP [facility] * [facility] * Preadmission Environment Home with Family * ADLs Partial Dependent * Partial ADLs (Assistance needed) Dressing Toileting * Equipment Rolling Walker * List name and contact numbers for known caregivers / representatives who currently or will assist patient after discharge: ARIANNA () [phone] * Verbal permission to speak to the caregivers and representatives has been obtained from the patient. Yes * Community resources currently utilized None * Additional services required to return to the preadmission environment? Yes * Can the patient safely return to the preadmission environment? No * Has this patient been hospitalized within the prior 30 days at any hospital? No Coverage Notice Reviewer: [id number] - Maria Elena Edwards Notice Issued Date-Time: 12/04/2018 16:00 Notice Type: IM Discharge Notice Notice Delivered To: Patient Relationship to Patient: Spouse Nuclear Instructor Name: arianna Delivery Method: PHONE - Phone Kera Days: Prior Verbal Notification: Yes Recipient Understood Notice: Recipient Signature: Med Rec Note Co-signed by Attending: Coverage Notice Comment: Reviewer: [id number] - Maria Elena Edwards Notice Issued Date-Time: 12/04/2018 16:00 Notice Type: Patient Choice Letter Notice Delivered To: Family Member Relationship to Patient: Spouse Nuclear Instructor Name: Arianna Delivery Method: PHONE - Phone Kera Days: Prior Verbal Notification: Yes Recipient Understood Notice: Recipient Signature: Med Rec Note Co-signed by Attending: Coverage Notice Comment: Last DP export: 12/09/18 2:55 p Patient Name: AMY BRONSON Page [id number] at 1624 All edits/amendments must be made on the electronic document DICTATION DATE: 12/09/181622 CLINICAL MICROBIOLOGIST: LEWIS 12/09/181622 RPT#: [id number] DC DATE: STATUS: ADM IN [facility] [address] [place] [address] END OF REPORT
[2018-12-09 16:55] VITALS: BP 105/52
--- NOTE | 2018-12-09 19:03 | NUR ---
SAVING HIS DINNER FOR LATER. ENCOURAGED TO DRINK ENSURE IF NOT EATING. DENIES NEEDS. NO CHANGES NOTED.
--- NOTE | 2018-12-09 19:58 | NUR ---
OT NOTE: PT COMPLETED BED MOB AND ADL MOB TO CHAIR WITH MIN A X 2. PT COMPLETED HYGIENE TASK WITH MOD A. THANK YOU, ALLISON YU
[2018-12-09 20:00] VITALS: BP 111/60
[2018-12-10] VITALS: BP 107/50
--- NOTE | 2018-12-10 02:15 | NUR ---
REC'D. SITTING UP BEDSIDE CHAIR AT CHGE OF SHIFT.DENIES ANY COMPLAINTS OR DISCOMFORT AT PRESENT TIME. WILL CONTINUE TO MONITOR FOR ANY CHGES.IN NEUROVASCULAR STATUS AND FOLLOW CURRENT PLAN OF CARE.
[2018-12-10 04:00] VITALS: BP 116/57
[2018-12-10 06:01] LABS: BASOPHILS 0.1 % (0-2); EOSINOPHILS 1.2 % (0-7); HEMATOCRIT 32.1 % (42.0-54.0); HEMOGLOBIN 10.4 g/dL (13.5-17.5); IMMATURE GRANULOCYTES 4.3 % (0-5); LYMPHOCYTES 9.9 % (15-50); MCH 31.9 pg (26.0-34.0); MCHC 32.4 g/dL (31.0-37.0); MEAN PLATELET VOLUME 10.2 fL (7.4-10.4); MONOCYTES 10.3 % (2-11); NEUTROPHILS 74.2 % (40-80); PLATELET COUNT 194 10x3/uL (130-400); RBC 3.26 10x6/uL (4.20-6.10); RDW 19.6 % (11.5-14.5); WBC 10.6 10x3/uL (4.8-10.8)
[2018-12-10 06:17] LABS: ANION GAP 13.8 mmol/L (8-16); CALCIUM 8.6 mg/dL (8.5-10.1); CARBON DIOXIDE 25.1 mmol/L (21.0-32.0); CREATININE - SERUM 1.6 mg/dL (0.6-1.3); POTASSIUM - SERUM 3.9 mmol/L (3.5-5.1)
[2018-12-10 06:30] LABS: MCV 98.5 fL (80.0-100.0)
--- NOTE | 2018-12-10 06:46 | NUR ---
I have reviewed this patient and I concur with the Shift Assessment completed by the Licensed Practical Nurse today this shift.
--- NOTE | 2018-12-10 08:01 | MORECARE ---
CASE MANAGEMENT DISCHARGE SUMMARY PATIENT: AMY BRONSON JR UNIT: [id number] ADM DATE: 12/02/18 AGE: 68 : 49 SEX: M ROOM/BED: D.2204 AUTHOR: GRAZYNA,DOC PHYSICIAN: REFERRING PHYSICIAN: DMITRIY CORRAL MD DATE OF SERVICE: 12/10/18 Discharge Plan Patient Name: AMY BRONSON Facility: [facility]:[place] : 1950 Planned Disposition: Retirement Facility Anticipated Discharge Date: Discharge Date: Expected LOS: Initial Reviewer: [email or web address] Initial Review Date: 12/02/2018 Generated: 12/10/18 9:00 am Comments DCP- Discharge Planning Updated by [id number]: Maria Elena Edwards on 12/10/18 6:[address] updated clinical sent to [facility] DCP- Discharge Planning Updated by [email or web address]: Maria Elena Edwards on 12/09/18 3:[address] ATTEMPTED TO CALL RICHARD (SON) BACK ASKED, BUT THERE WAS NOT AN ANSWER. RICHARD # [phone] DCP- Discharge Planning Updated by [id number]: Maria Elena Edwards on 12/09/18 2:[address] KAYA SENT DCP- Discharge Planning Updated by [email or web address]: Maria Elena Edwards on 12/08/18 7:[address] updated clinicals sent to [facility] DCP- Discharge Planning Updated by [email or web address]: Janine Murphy on 12/07/18 5:[address] PRIMARY NURSE REPORTS THAT THE PATIENT'S CALLED AND SAID ALL THE UTILITIES ARE OFF AND THEY HAVE 3 DAYS TO GET THEIR BELONGINGS OUT. PATIENT IS VERY UPSET WANTING TO LEAVE. HE HAS A RAPID HEART RATE. HE IS IN UNCONTROLLED AFIB. TELEMETRY. STARTED CARDIZEM 30 MGM Q6H ON 12/06. HE ALSO HAS DECREASING H/H. IS ON 4/L NASAL O2. THE NURSE CALLED AND SPOKE WITH THE DAUGHTER. PATIENT'S IS WITH HER. REPORTEDLY THE PATIENT HAS A CHECK. HE MUST GALE TO PAY BILLS. QUESTION OF CIRCUMSTANCE OF HOUSING AND HIS CARE PRIOR TO ADMIT. POSSIBLE APS . REPORTEDLY THE PATIENT HAD BEEN HOME ALONE. WAS UNKEMPT ON ADMISSION. ?? MENTAL HEALTH ISSUES W/ . AMBULANCE CREW MAY HAVE DONE REPORT. WILL NEED TO F/U [facility]'S MAIN OFFICE IN [place] ON SATURDAY. DCP- Discharge Planning Updated by [email or web address]: Maria Elena Edwards on 12/04/18 3:[address] Patient Name: AMY BRONSON Admission Status: ER Accout number: [id number] Admission Date: 12-02-2018 : 1950 Admission Diagnosis: Attending: DMITRIY CORRAL Current LOS: 2 Anticipated DC Date: Planned Disposition: Retirement Facility Primary Insurance: WELL[employer] MEDICARE ADV Discharge Planning Comments: CM met with patient to assess discharge planning needs. Patient is alert and oriented to person and time. He stated that he can go home and he will be fine. He lives with his Arianna and has a walker. I explained to him that therapy and nursing did not think he was safe to go home yet and will need to go to rehab, he said he would have help from his neighbor to help him move and he will be fine. Permission to call his . I called Arianna his and she stated that she can not take care of him at home. He needs more help that she can give, talked to her about skilled facilities she state [facility] in [place] his her first choice I have sent referral to them. IMM also explained. CM will continue to follow and assist with DC planning Hairspring Ii Inspector: Maria Elena Edwards DCPIA - Discharge Planning Initial Assessment Updated by [email or web address]: Maria Elena Edwards on 12/04/18 4:11 pm * Is the patient Alert and Oriented? Yes * PCP T[facility] * [facility] * Preadmission Environment Home with Family * ADLs Partial Dependent * Partial ADLs (Assistance needed) Dressing Toileting * Equipment Rolling Walker * List name and contact numbers for known caregivers / representatives who currently or will assist patient after discharge: ARIANNA () [phone] * Verbal permission to speak to the caregivers and representatives has been obtained from the patient. Yes * Community resources currently utilized None * Additional services required to return to the preadmission environment? Yes * Can the patient safely return to the preadmission environment? No * Has this patient been hospitalized within the prior 30 days at any hospital? No Coverage Notice Reviewer: [id number] Merna Edwards Notice Issued Date-Time: 12/04/2018 16:00 Notice Type: IM Discharge Notice Notice Delivered To: Patient Relationship to Patient: Spouse Finisher Machine Name: arianna Delivery Method: PHONE - Phone Kera Days: Prior Verbal Notification: Yes Recipient Understood Notice: Recipient Signature: Med Rec Note Co-signed by Attending: Coverage Notice Comment: Reviewer: [id number] Merna Edwards Notice Issued Date-Time: 12/04/2018 16:00 Notice Type: Patient Choice Letter Notice Delivered To: Family Member Relationship to Patient: Spouse Finisher Machine Name: Arianna Delivery Method: PHONE - Phone Kera Days: Prior Verbal Notification: Yes Recipient Understood Notice: Recipient Signature: Med Rec Note Co-signed by Attending: Coverage Notice Comment: Last DP export: 12/09/18 3:24 p Patient Name: AMY BRONSON Page [phone] at 0801 All edits/amendments must be made on the electronic document DICTATION DATE: 12/10/18799 EARLY CHILDHOOD SPECIAL EDUCATOR: LEWIS 12/10/18 08 RPT#: [id number] DC DATE: STATUS: ADM IN [facility] [address] [place] [address] END OF REPORT
--- NOTE | 2018-12-10 08:33 | NUR ---
AWAKE AND ALERT. ORIENTED X3. NO C/O THIS AM. LUNGS ARE CLEAR THIS AM, NO COUGH NOTED. SKIN IS INTACT WITHOUT REDNESS EXCEPT INCISION TO RIGHT HIP AND SCABBED AREA TO LEFT ELBOW, WHICH HAVE A DRY INTACT DRESSING IN PLACE. SL TO RIGHT FOREARM IS PATENT WTIHOUT REDNESS AT INSERTION SITE. SITTING UP IN BED EATING BREAKFAST. DENIES NEEDS.
[2018-12-10 09:00] VITALS: BP 105/62
--- NOTE | 2018-12-10 09:40 | NUR ---
REQUESTED AND GIVEN 10MG OXY PO FOR C/O RIGHT HIP PAIN LEVEL 6. WILL MONITOR.
--- NOTE | 2018-12-10 10:30 | NUR ---
RESTING QUIETLY WITH EYES CLOSED. NO NEEDS.NOTED.
--- NOTE | 2018-12-10 10:38 | CN ---
PATIENT NAME:AMY DYER JR MEDICAL RECORD: [id number] : [birth year] LOCATION:D.MS [place]2204 ADMIT DATE: 12/02/18 ACCOUNT: [id number] CONSULTING PHYSICIAN: DANIEL MOMIN MD REFERRING PHYSICIAN: DMITRIY CORRAL MD DATE OF CONSULTATION: 12/02/2018 CARDIOLOGY CONSULTATION DATE OF SERVICE: 12/02/3018 DIAGNOSES: 1. Preoperative evaluation for hip surgery. 2. Hip fracture. 3. Atrial fibrillation. 4. Tachycardia. 5. Coronary artery disease. 6. Previous percutaneous transluminal coronary angioplasty stent. 7. Chronic obstructive pulmonary disease. 8. Smoking. HISTORY OF PRESENT ILLNESS: Mr. Dyer fell and broke a right hip. He has atrial fibrillation. He says this is not new. He is on digoxin for this. He has had a history of coronary artery disease, previous PTCA stent. He is having no anginal symptomatology. His EKG is with no ST-T abnormalities. His baseline blood pressure runs in the 100 systolic range. His heart rate initially was in the 70s with pain from the hip, it is around 100. PHYSICAL EXAMINATION: GENERAL APPEARANCE: Well-nourished, well-developed, appears stated age. Level of distress, comfortable. PSYCHIATRIC: Mental status, alert, normal affect. Orientation, oriented to time, place and person. EYES: Lids and conjunctiva, noninjected. No discharge, no pallor. ENT: Lips, teeth, gums, normal dentition. Oropharynx, no cyanosis, no pallor. NECK: Carotid arteries, bilateral normal upstroke, no bruits, no thrills. JUGULAR VEINS: No jugular venous pressure or distention. CERVICAL LYMPH NODES: Nontender, nonenlarged. THYROID: Not enlarged. Nontender. No nodules. LUNGS: Respiratory effort, unlabored. CHEST: Normal curvature. No thoracic deformity. No chest wall tenderness. Percussion, resonant. Auscultation, clear. No wheezes, no rales, no rhonchi. CARDIOVASCULAR: Precordial exam, nondisplaced. No heaves or pericardial thrills. Rate and rhythm, regular. Heart sounds, normal S1, normal S2. No S3, no gallop, no rub. Systolic murmur, not heard. Diastolic murmur, not heard. EXTREMITIES: No cyanosis, no edema. Peripheral pulses, full and equal in all extremities, except as noted. No bruits appreciated. ABDOMEN: Soft, nondistended. Normal aorta. No bruit. Nontender. No masses. Liver, nontender, no hepatomegaly. Spleen, nontender, no splenomegaly. MUSCULOSKELETAL: No joint tenderness. No joint swelling. No erythema. NEUROLOGICAL: Normal gait, normal strength, normal tone. SKIN: Warm and dry. OVERALL IMPRESSION: Atrial fibrillation, not new, rate control with digoxin. Continue the digoxin due to his low blood pressure, would not add any other CONSULT REPORT [id number] AMY DYER JR agents onto this. Proceed with hip surgery at low cardiac risk. TRANSINT:[id number] Voice Confirmation ID: [id number] DOCUMENT ID: [id number] DANIEL MOMIN MD at 1038 CC: [id number] DICTATION DATE: 12/02/18 1202 ADMINISTRATION MANAGER: 12/02/18 1250 ADM IN [facility] [id number] [place] [address]
--- NOTE | 2018-12-10 10:38 | EC ---
PATIENT:AMY BRONSON JR DATE OF SERVICE: 12/02/18 SEX: M MEDICAL RECORD: [id number] DATE OF : [birth year] LOCATION:D.MS [place] AGE OF PATIENT: 68 ADMISSION DATE: 12/02/18 REFERRING PHYSICIAN: INTERPRETING PHYSICIAN: DANIEL CAPPS MD ECHOCARDIOGRAM REPORT ECHO CHARGES 4 ECHO COMPLETE Date: 12/02/18 CLINICAL DIAGNOSIS: ECHOCARDIOGRAPHIC MEASUREMENTS (adult normal given) AC root (d.<3.7cm) 3.5 cm LV Septum d (<1.2 cm> 1.5 cm Valve Excursion 1.8 cm LV Septum (systole) 1.9 cm Left Atria (s.<4.0cm> 3.5 cm LVPW d(<1.2cm) 1.5 cm RV (d.<2.3cm) 2.3 cm LVPW (sytole) 1.9 cm LV diastole(<5.6CM) 5.2 cm MV E-F(>70mm/sec) cm LV systole 3.4 cm LVOT Diameter 1.9 cm MV exc.(>10mm) cm Est.ejection fraction (50-75%) % DOPPLER: LVIT cm/sec A 42.0 cm/sec E 62.0 cm/sec LA cm/sec RVSP 45.0 mmHg LVOT 98.0 cm/sec AOP1/2T m/s Asc. Ao 150 cm/sec RVOT 79.0 cm/sec RA cm/sec PA 93.0 cm/sec AV Gradient Peak 9.0 mmHg AV Mean 4.4 mmHg AV Area 2.0 cm MV Gradient Peak 2.5 mmHg MV Mean 0.98 mmHg MV Area cm COMMENTS: Processor Solid Propellant: Ruben KERROE Offal Worker: 1 Dr. Capps TAPE# PACS Pericardial Effusion N DATE OF SERVICE: 12/02/2018 FINDINGS: 1. Left ventricular chamber size is within normal limits. Left ventricular systolic function is mildly reduced. Overall ejection fraction in the 40% range. 2. Left atrium, right atrium, and right ventricular chamber sizes are within normal limits. 3. Valvular structures have normal structure and motion. 4. Doppler interrogation reveals moderate mitral regurgitation, no other ECHOCARDIOGRAM REPORT [id number] AMY BRONSON JR valvular insufficiency or stenosis. 5. No evidence of pericardial effusion or left ventricular thrombus. TRANSINT:[id number] Voice Confirmation ID: [id number] DOCUMENT ID: [id number] DANIEL CAPPS MD at 1038 CC: [id number] DICTATION DATE: 12/03/18411 BIODIESEL OPERATIONS MANAGER: 12/03/[address] [facility] [address] [place] [address]
[2018-12-10 13:14] VITALS: BP 106/56
--- NOTE | 2018-12-10 14:00 | NUR ---
DRESSING CHANGED TO RIGHT HIP. INCISION IS CLEAN AND DRY, WELL APPROXIMATED. DENIES NEEDS.
--- NOTE | 2018-12-10 14:57 | NUR ---
OT NOTE: PT MORE LETHARGIC IN PM. PERFORMED BED MOB WITH MIN ASSIST; EOB SITTING WITH SPV; ASSISTED P.T. WITH AMBULATION WITH PT WITH USE OF IV, 02, GAIT BELT, AND RW WITH MAX ASSIST FOR WALKER MGMT AND MIN ASSIST WITH BALANCE. PT REQUIRED 1 SIT DOWN REST BREAK FOR APPROX 10 FT. PT VERY SOB HOWEVER, 02 SATS IN THE 90S. TRANSFER TO CHAIR WITH MIN ASSIST; REQUIRED MOD ASSIST TO RAMSEY BRIEF; MIN ASSIST WITH GOWN AND MIN ASSIST TO WASH FACE AND HANDS WITH CLOTH. TRANSFERED LATER BACK TO BED WITH WALKER AND MIN ASSIST. ERIKA VOSS, OTR/L
[2018-12-10 16:46] VITALS: BP 148/69
--- NOTE | 2018-12-10 18:56 | NUR ---
REFUSED SUPPER TRAY. REQUESTED AND GIVEN 10 MG OXY PO FOR C/O RIGHT HIP PAIN. DENIES NEEDS. NO CHANGES NOTED.
--- NOTE | 2018-12-10 19:22 | NUR ---
OT NOTE: PT COMPLETED TRANSFER FROM CHAIR TO BED WITH MOD A. PT COMPLETED SIT TO STAND WITH CGA. PT COMPLETED GROOMING TASKS WITH VERBAL CUES. THANK YOU, ALLISON YU
[2018-12-10 20:00] VITALS: BP 109/51
[2018-12-11] VITALS (14 sets, daily range): BP systolic 88–178; BP diastolic 45–63
[2018-12-11 05:33] LABS: BASOPHILS 0.2 % (0-2); EOSINOPHILS 1.4 % (0-7); HEMATOCRIT 34.8 % (42.0-54.0); HEMOGLOBIN 11.1 g/dL (13.5-17.5); IMMATURE GRANULOCYTES 4.3 % (0-5); LYMPHOCYTES 9.1 % (15-50); MCHC 31.9 g/dL (31.0-37.0); MCV 100.3 fL (80.0-100.0); MEAN PLATELET VOLUME 10.2 fL (7.4-10.4); MONOCYTES 9.9 % (2-11); NEUTROPHILS 75.1 % (40-80); PLATELET COUNT 216 10x3/uL (130-400); RBC 3.47 10x6/uL (4.20-6.10); RDW 19.4 % (11.5-14.5); WBC 10.3 10x3/uL (4.8-10.8)
[2018-12-11 05:39] LABS: ANION GAP 10.9 mmol/L (8-16); CALCIUM 8.7 mg/dL (8.5-10.1); CARBON DIOXIDE 28.7 mmol/L (21.0-32.0); CREATININE - SERUM 1.7 mg/dL (0.6-1.3); POTASSIUM - SERUM 3.6 mmol/L (3.5-5.1)
--- NOTE | 2018-12-11 05:57 | NUR ---
191) REC.'D. AT [facility] OF SHIFT REQUESTING PAIN MED. INFORMED JUST HAD PAIN MED AT 1807 WAS TOO EARLY. VOICES UNDERSTANDING. DRSING DRY AND INTACT TO RIGHT HIP.WILL CONTINUE TO TO MONITOR FOR ANY CHGES AND FOLLOW CURRENT PLAN OF CARE
--- NOTE | 2018-12-11 12:13 | MORECARE ---
CASE MANAGEMENT DISCHARGE SUMMARY PATIENT: AMY BRONSON JR UNIT: [id number] ADM DATE: 12/02/18 AGE: 68 : 49 SEX: M ROOM/BED: D.2204 AUTHOR: GRAZYNA,DOC PHYSICIAN: REFERRING PHYSICIAN: DMITRIY CORRAL MD DATE OF SERVICE: 12/11/18 Discharge Plan Patient Name: AMY BRONSON Facility: [facility]:[place] : 1950 Planned Disposition: Longterm Facility Anticipated Discharge Date: Discharge Date: Expected LOS: Initial Reviewer: [id number] Initial Review Date: 12/02/2018 Generated: 12/11/18 1:12 pm Comments DCP- Discharge Planning Updated by [email or web address]: Maria Elena Edwards on 12/11/18 11:[address] spoke with Alba @ [facility] they are waiting on Auth DCP- Discharge Planning Updated by [id number]: Maria Elena Edwards on 12/10/18 6:[address] updated clinical sent to [facility] DCP- Discharge Planning Updated by [id number]: Maria Elena Edwards on 12/09/18 3:[address] ATTEMPTED TO CALL RICHARD (SON) BACK ASKED, BUT THERE WAS NOT AN ANSWER. RICHARD # [phone] DCP- Discharge Planning Updated by [email or web address]: Maria Elena Edwards on 12/09/18 2:[address] KAYA SENT DCP- Discharge Planning Updated by [email or web address]: Maria Elena Edwards on 12/08/18 7:[address] updated clinicals sent to [facility] DCP- Discharge Planning Updated by [id number]: Janine Murphy on 12/07/18 5:[address] PRIMARY NURSE REPORTS THAT THE PATIENT'S CALLED AND SAID ALL THE UTILITIES ARE OFF AND THEY HAVE 3 DAYS TO GET THEIR BELONGINGS OUT. PATIENT IS VERY UPSET WANTING TO LEAVE. HE HAS A RAPID HEART RATE. HE IS IN UNCONTROLLED AFIB. TELEMETRY. STARTED CARDIZEM 30 MGM Q6H ON 12/06. HE ALSO HAS DECREASING H/H. IS ON 4/L NASAL O2. THE NURSE CALLED AND SPOKE WITH THE DAUGHTER. PATIENT'S IS WITH HER. REPORTEDLY THE PATIENT HAS A CHECK. HE MUST GALE TO PAY BILLS. QUESTION OF CIRCUMSTANCE OF HOUSING AND HIS CARE PRIOR TO ADMIT. POSSIBLE APS . REPORTEDLY THE PATIENT HAD BEEN HOME ALONE. WAS UNKEMPT ON ADMISSION. ?? MENTAL HEALTH ISSUES W/ . AMBULANCE CREW MAY HAVE DONE REPORT. WILL NEED TO F/U [facility]'S MAIN OFFICE IN [place] ON SATURDAY. DCP- Discharge Planning Updated by [id number]: Maria Elena Edwards on 12/04/18 3:[address] Patient Name: AMY BRONSON Admission Status: ER Accout number: [id number] Admission Date: 12-02-2018 : 1950 Admission Diagnosis: Attending: DMITRIY CORRAL Current LOS: 2 Anticipated DC Date: Planned Disposition: Longterm Facility Primary Insurance: WE[employer] MEDICARE ADV Discharge Planning Comments: CM met with patient to assess discharge planning needs. Patient is alert and oriented to person and time. He stated that he can go home and he will be fine. He lives with his Arianna and has a walker. I explained to him that therapy and nursing did not think he was safe to go home yet and will need to go to rehab, he said he would have help from his neighbor to help him move and he will be fine. Permission to call his . I called Arianna his and she stated that she can not take care of him at home. He needs more help that she can give, talked to her about skilled facilities she state [facility] in [place] his her first choice I have sent referral to them. IMM also explained. CM will continue to follow and assist with DC planning Gas Plant Specialist: Maria Elena Edwards DCPIA - Discharge Planning Initial Assessment Updated by [id number]: Maria Elena Edwards on 12/04/18 4:11 pm * Is the patient Alert and Oriented? Yes * PCP [facility] * [facility] * Preadmission Environment Home with Family * ADLs Partial Dependent * Partial ADLs (Assistance needed) Dressing Toileting * Equipment Rolling Walker * List name and contact numbers for known caregivers / representatives who currently or will assist patient after discharge: ARIANNA () [phone] * Verbal permission to speak to the caregivers and representatives has been obtained from the patient. Yes * Community resources currently utilized None * Additional services required to return to the preadmission environment? Yes * Can the patient safely return to the preadmission environment? No * Has this patient been hospitalized within the prior 30 days at any hospital? No Coverage Notice Reviewer: [id number] Edwards Notice Issued Date-Time: 12/04/2018 16:00 Notice Type: IM Discharge Notice Notice Delivered To: Patient Relationship to Patient: Spouse Poultry Farm Supervisor Name: arianna Delivery Method: PHONE - Phone Kera Days: Prior Verbal Notification: Yes Recipient Understood Notice: Recipient Signature: Med Rec Note Co-signed by Attending: Coverage Notice Comment: Reviewer: [id number] Edwards Notice Issued Date-Time: 12/04/2018 16:00 Notice Type: Patient Choice Letter Notice Delivered To: Family Member Relationship to Patient: Spouse Poultry Farm Supervisor Name: Arianna Delivery Method: PHONE - Phone Kera Days: Prior Verbal Notification: Yes Recipient Understood Notice: Recipient Signature: Med Rec Note Co-signed by Attending: Coverage Notice Comment: Last DP export: 12/10/18 7:00 am Patient Name: AMY BRONSON Page [id number] at 1213 All edits/amendments must be made on the electronic document DICTATION DATE: 12/11/18 1212 STRIPPER OPAQUER: LEWIS 12/11/18 1212 RPT#: [id number] DC DATE: STATUS: ADM IN [facility] [address] [place] [address] END OF REPORT
--- NOTE | 2018-12-11 13:44 | MORECARE ---
CASE MANAGEMENT DISCHARGE SUMMARY PATIENT: AMY BRONSON JR UNIT: [id number] ADM DATE: 12/02/18 AGE: 68 : 49 SEX: M ROOM/BED: D.2305 AUTHOR: GRAZYNA,DOC PHYSICIAN: REFERRING PHYSICIAN: DMITRIY CORRAL MD DATE OF SERVICE: 12/11/18 Discharge Plan Patient Name: AMY BRONSON Facility: [facility]:[place] : 1950 Planned Disposition: Care Home Facility Anticipated Discharge Date: Discharge Date: Expected LOS: Initial Reviewer: [id number] Initial Review Date: 12/02/2018 Generated: 12/11/18 2:44 pm Comments DCP- Discharge Planning Updated by [id number]: Maria Elena Edwards on 12/11/18 12:[address] Patient was transferred to ICU, Updated Alba on this she will follow up with [facility] the ICU DCP- Discharge Planning Updated by [id number]: Maria Elena Edwards on 12/11/18 11:[address] spoke with Alba @ [facility] they are waiting on Auth DCP- Discharge Planning Updated by [id number]: Maria Elena Edwards on 12/10/18 6:[address] updated clinical sent to [facility] DCP- Discharge Planning Updated by [email or web address]: Maria Elena Edwards on 12/09/18 3:[address] ATTEMPTED TO CALL RICHARD (SON) BACK ASKED, BUT THERE WAS NOT AN ANSWER. RICHARD # [phone] DCP- Discharge Planning Updated by [email or web address]: Maria Elena Edwards on 12/09/18 2:[address] KAYA SENT DCP- Discharge Planning Updated by [id number]: Maria Elena Edwards on 12/08/18 7:[address] updated clinicals sent to [facility] DCP- Discharge Planning Updated by [email or web address]: Janine Murphy on 12/07/18 5:[address] PRIMARY NURSE REPORTS THAT THE PATIENT'S CALLED AND SAID ALL THE UTILITIES ARE OFF AND THEY HAVE 3 DAYS TO GET THEIR BELONGINGS OUT. PATIENT IS VERY UPSET WANTING TO LEAVE. HE HAS A RAPID HEART RATE. HE IS IN UNCONTROLLED AFIB. TELEMETRY. STARTED CARDIZEM 30 MGM Q6H ON 12/06. HE ALSO HAS DECREASING H/H. IS ON 4/L NASAL O2. THE NURSE CALLED AND SPOKE WITH THE DAUGHTER. PATIENT'S IS WITH HER. REPORTEDLY THE PATIENT HAS A CHECK. HE MUST GALE TO PAY BILLS. QUESTION OF CIRCUMSTANCE OF HOUSING AND HIS CARE PRIOR TO ADMIT. POSSIBLE APS . REPORTEDLY THE PATIENT HAD BEEN HOME ALONE. WAS UNKEMPT ON ADMISSION. ?? MENTAL HEALTH ISSUES W/ . AMBULANCE CREW MAY HAVE DONE REPORT. WILL NEED TO F/U [facility] MAIN OFFICE IN [place] ON SATURDAY. DCP- Discharge Planning Updated by [email or web address]: Maria Elena Edwards on 12/04/18 3:[address] Patient Name: AMY BRONSON Admission Status: ER Accout number: [id number] Admission Date: 12-02-2018 : 1950 Admission Diagnosis: Attending: DMITRIY CORRAL Current LOS: 2 Anticipated DC Date: Planned Disposition: Care Home Facility Primary Insurance: WELL[employer] MEDICARE ADV Discharge Planning Comments: CM met with patient to assess discharge planning needs. Patient is alert and oriented to person and time. He stated that he can go home and he will be fine. He lives with his Arianna and has a walker. I explained to him that therapy and nursing did not think he was safe to go home yet and will need to go to rehab, he said he would have help from his neighbor to help him move and he will be fine. Permission to call his . I called Arianna his and she stated that she can not take care of him at home. He needs more help that she can give, talked to her about skilled facilities she state [facility] her first choice I have sent referral to them. IMM also explained. CM will continue to follow and assist with DC planning Smutter: Maria Elena Edwards DCPIA - Discharge Planning Initial Assessment Updated by [id number]: Maria Elena Edwards on 12/04/18 4:11 pm * Is the patient Alert and Oriented? Yes * PCP T[facility] * Pharmacy [facility] * Preadmission Environment Home with Family * ADLs Partial Dependent * Partial ADLs (Assistance needed) Dressing Toileting * Equipment Rolling Walker * List name and contact numbers for known caregivers / representatives who currently or will assist patient after discharge: ARIANNA () [phone] * Verbal permission to speak to the caregivers and representatives has been obtained from the patient. Yes * Community resources currently utilized None * Additional services required to return to the preadmission environment? Yes * Can the patient safely return to the preadmission environment? No * Has this patient been hospitalized within the prior 30 days at any hospital? No Coverage Notice Reviewer: [id number] Merna Edwards Notice Issued Date-Time: 12/04/2018 16:00 Notice Type: IM Discharge Notice Notice Delivered To: Patient Relationship to Patient: Spouse Route Sales Specialist Name: arianna Delivery Method: PHONE - Phone Kera Days: Prior Verbal Notification: Yes Recipient Understood Notice: Recipient Signature: Med Rec Note Co-signed by Attending: Coverage Notice Comment: Reviewer: [id number] Edwards Notice Issued Date-Time: 12/04/2018 16:00 Notice Type: Patient Choice Letter Notice Delivered To: Family Member Relationship to Patient: Spouse Route Sales Specialist Name: Arianna Delivery Method: PHONE - Phone Kera Days: Prior Verbal Notification: Yes Recipient Understood Notice: Recipient Signature: Med Rec Note Co-signed by Attending: Coverage Notice Comment: Last DP export: 12/11/18 11:13 am Patient Name: AMY BRONSON Page [phone] at 1344 All edits/amendments must be made on the electronic document DICTATION DATE: 12/11/18 1343 APPLICATIONS DEVELOPER: LEWIS 12/11/18 1343 RPT#: [id number] DC DATE: STATUS: ADM IN [facility] [address] [place] [address] END OF REPORT
--- NOTE | 2018-12-11 13:53 | NUR ---
PT RECIEVED FROM TAMIKA ZALDIVAR. RT AT BEDSIDE GIVEN UDPATE. VSS. O2 VIA VENTI MASK 80% O2 SAT 92% RR 22 LABORED PT C/O OF CP 05/21 EKG OBTAINED CONTROLLED A-FIB. FAMILY CALLED TWICE WITH NO ANSWER WILL ATTEMPT AGAIN. SITTING UP IN BED ALERT ORIENTED. WILL CONTINUE TO MONITOR
--- NOTE | 2018-12-11 15:00 | NUR ---
REASSESSMENT COMPLETE PER FLOW SHEET. VSS. NO NEW CHANGES WILL CONTNIUE TO MONITOR
--- NOTE | 2018-12-11 16:13 | NUR ---
OT NOTE: PT COMPLETED BED MOB WITH MOD/MIN A, PT COMPLETED SIT TO STAND WITH MOD/MIN A. PT COMPLETED GROOMING TASKS WITH MOD A. 950/1022 GISSEL ORTIZ, ALLISON YU
--- NOTE | 2018-12-11 16:45 | NUR ---
OT NOTE: PT PERFORMED WELL TODAY. ABLE TO PERFORM BED MOB WITH MIN ASSIST; TRANSFERS TO CHAIR WITH WALKER AND MIN ASSIST. MOD ASSIST TO RAMSEY CLEAN BRIEF; SET UP FOR SIMPLE GROOMING AND HYGIENE. PRACTICED FUNCTIONAL TRANSFERS FROM CHAIR TO BED TO CHAIR WITH MIN ASSIST. PT FATIGUES QUICKLY..REQUIRES ENCOURAGEMENT TO CONTINUE, HOWEVER, IMPROVEMENT NOTED TODAY FROM YESTERDAY. ERIKA VOSS, OTR/L OT NOTE: ASSISTED P.T. WITH TRANSFER FROM CHAIR TO BED IN AFTERNOON. PTS 02 SATS DROPPED AND NEEDED TO TRANSFER TO ICU..MIN/MOD ASSIST WITH USE OF WALKER; MOD ASSIST FOR SIT TO SUPINE; MAX ASSIST FOR POSITIONING. ERIKA VOSS, OTR/L
--- NOTE | 2018-12-11 16:50 | NUR ---
PT TO CT WITHOUT DIFFICULTY. BACK TO BED. DENIES NEEDS
[2018-12-11 16:53] LABS: TROPONIN-I 0.051 ng/mL (0.000-0.060)
--- NOTE | 2018-12-11 17:38 | NUR ---
FAMILY AT BEDSIDE GIVEN UPDATE.
--- NOTE | 2018-12-11 19:00 | NUR ---
REPORT RECIEVED, SHIFT ASSESSMENT COMPLETE, PLEASE SEE FLOW SHEETS FOR DETAILS. DR HUERTAS IN ROOM. GAVE VERBAL ORDERS FOT STAT ABG, INFORMED OF RESULTS. GAVE VERBAL ORDERS TO HOLD BETAPACE/CARDIZEM/KLONOPIN AND TO HOLD ANY MED THAT MAY CAUSE AMS. VERBAL ORDER TO GIVE LEVOPHED IF NEEDED FOR HYPOTENSION. INCONTINENCE OF URINE CLEANED UP. DENIES ANY OTHER NEEDS. BED LOW AND LOCKED, CALL LIGHT IN REACH. HEMODYNAMICALLY STABLE ATT. WILL CONTINUE PLAN OF CARE.
--- NOTE | 2018-12-11 21:00 | NUR ---
TOLERATED PO MEDS WELL. HEMODYNAMICALLY STABLE. BED LOW AND LOCKED, CALL LIGHT IN REACH. WILL CONTINUE PLAN OF CARE.
--- NOTE | 2018-12-11 23:00 | NUR ---
REASSESSMENT COMPLETE, PLEASE SEE FLOW SHEETS FOR DETAILS. HEMODYNCAMICALLY STABLE. BED LOW AND LOCKED, CALL LIGHT IN REACH. ORAL CARE AND TURNING PROVIDED. WILL CONTINUE PLAN OF CARE.
[2018-12-12] VITALS (23 sets, daily range): BP systolic 94–127; BP diastolic 51–78; BMI 21.2
--- NOTE | 2018-12-12 01:00 | NUR ---
RESTING. HEMODYNAMICALLY STABLE. BED LOW AND LOCKED, CALL LIGHT IN REACH. WILL CONTINUE PLAN OF CARE.
--- NOTE | 2018-12-12 02:00 | NUR ---
invontinence cleaned up. tolerated well.
--- NOTE | 2018-12-12 03:00 | NUR ---
REASSESSMENT COMPLETE, PLEASE SEE FLOW SHEETS FOR DETAILS. NO ACUTE CHANGE TO NOTE. DENIES PAIN/NEEDS. VSS, BED LOW AND LOCKED, CALL LIGHT IN REACH. WILL CONTINUE PLAN OF CARE.
[2018-12-12 03:36] LABS: BASOPHILS 0.1 % (0-2); EOSINOPHILS 0.2 % (0-7); HEMATOCRIT 34.7 % (42.0-54.0); IMMATURE GRANULOCYTES 1.6 % (0-5); LYMPHOCYTES 7.8 % (15-50); MCH 32.5 pg (26.0-34.0); MCHC 31.7 g/dL (31.0-37.0); MEAN PLATELET VOLUME 10.1 fL (7.4-10.4); MONOCYTES 7.4 % (2-11); NEUTROPHILS 82.9 % (40-80); PLATELET COUNT 194 10x3/uL (130-400); RBC 3.38 10x6/uL (4.20-6.10)
[2018-12-12 03:40] LABS: MCV 102.7 fL (80.0-100.0); WBC 14.8 10x3/uL (4.8-10.8)
[2018-12-12 03:52] LABS: ALBUMIN 1.7 g/dL (3.4-5.0); ANION GAP 10.3 mmol/L (8-16); BILIRUBIN - TOTAL 0.67 mg/dL (0.2-1.3); CALCIUM 8.8 mg/dL (8.5-10.1); CARBON DIOXIDE 29.7 mmol/L (21.0-32.0); CREATININE - SERUM 1.9 mg/dL (0.6-1.3); PROTEIN - SERUM 6.8 g/dL (6.4-8.2)
--- NOTE | 2018-12-12 05:00 | NUR ---
Full bed bath with chlorheadine and full linen change provided. Tolerated well. Bed low and locked, call light in reach. Will continue plan of care.
--- NOTE | 2018-12-12 07:12 | NUR ---
REPORT RECEIVED. ASSESSMENT COMPLETE PER FLOW SHEET. VSS. ASSISTED WITH COMPLETE BB LINEN CHANGE NO NEW FINDINGS. ERROL SUTTONUE TO MONITOR
--- NOTE | 2018-12-12 08:59 | NUR ---
Nutrition follow-up: Diet: Regular PO intake at breakfast this morning ~50% of meal Labs reviewed Pt with no teeth noted; will monitor po intake to see if meal modification is needed. Wt: 170# Miralax ordered RDN following.
--- NOTE | 2018-12-12 09:50 | NUR ---
DR HUERTAS AT BEDSIDE. NEW ORDERS RECEIVED
--- NOTE | 2018-12-12 10:30 | NUR ---
DR COLE AT BEDSIDE GIVEN UPDATE. NO NEW CHANGES WILL CONTINUE TO MONITOR
--- NOTE | 2018-12-12 11:00 | NUR ---
REASSESSMENT COMPLETE PER FLOW SHEET. VSS. NO NEW CHANGES PT RESTING COMFORTALBY WILL CONTINUE TO MONITOR
--- NOTE | 2018-12-12 13:00 | NUR ---
SPOKE WITH ZACKERY ZALDIVAR FROM RADIOLOGY STATED WOULD BE SATURDAY FOR BIOPSY. WILL UPDATE DR HUERTAS
--- NOTE | 2018-12-12 15:00 | NUR ---
REASSESSMENT COMPLETE PER FLOW SHEET. VSS NO NEW CHANGES WILL CONTINUE TO MONITOR
--- NOTE | 2018-12-12 15:48 | NUR ---
FMLAM CALLED GIVEN UPDATE. FAMILY ASKED IF ANYONE HAD CALLED IN REGRDS TO PT, STATED A MALE HAD CALLED EARLIER TODAY. FAMILY UPSET AT THIS TIME STATED NO ONE WAS TO SPEAK TO HIM. AT THIS TIME PT VERY WELL ORIENTED AND CAN MAKE OWN DECISIONS ON HIS BEHALF. FAMILY STATED UNDERSTANDING.
--- NOTE | 2018-12-12 17:44 | NUR ---
GIVEN DINNER TRAY ATE 50% DENIES NEEDS WILL CONTINUE TO MONITOR
--- NOTE | 2018-12-12 19:30 | NUR ---
ASSESSMENT COMPLETE, PER NURSING FLOWSHEET. COMPLETE LINEN CHANGE FOR INCONTINENT STOOL AND BOWEL EPISODE, MEPILEX TO COCCYX INTACT
--- NOTE | 2018-12-12 21:00 | NUR ---
PATIENT REPOSITIONED, NO OTHER NEEDS VOICED OR NOTED, C/L IN REACH
--- NOTE | 2018-12-12 23:00 | NUR ---
RE-ASSESSMENT COMPLETE, PER NURSING FLOWSHEET, PATIENT REPOSITIONED, INDEPENDENTLY PERFORMS ORAL CARE, VSS, C/L IN REACH
[2018-12-13] VITALS (24 sets, daily range): BP systolic 90–120; BP diastolic 49–91
--- NOTE | 2018-12-13 01:00 | NUR ---
PATIENT REPOSITIONED, QUICKLY FALLS BACK TO SLEEP, VSS, CONTINUE POC
--- NOTE | 2018-12-13 03:00 | NUR ---
RE-ASSESSMENT COMPLETE, PER NURSING FLOWSHEET. PATIENT REPOSITIIONED, NO OTHER NEEDS VOICED OR NOTED, C/L IN REACH
[2018-12-13 03:13] LABS: BASOPHILS 0.1 % (0-2); EOSINOPHILS 0.4 % (0-7); HEMATOCRIT 34.6 % (42.0-54.0); HEMOGLOBIN 11.1 g/dL (13.5-17.5); IMMATURE GRANULOCYTES 1.3 % (0-5); LYMPHOCYTES 8.6 % (15-50); MCH 32.2 pg (26.0-34.0); MCHC 32.1 g/dL (31.0-37.0); MEAN PLATELET VOLUME 10.4 fL (7.4-10.4); MONOCYTES 7.8 % (2-11); NEUTROPHILS 81.8 % (40-80); PLATELET COUNT 204 10x3/uL (130-400); RBC 3.45 10x6/uL (4.20-6.10); RDW 18.2 % (11.5-14.5); WBC 13.5 10x3/uL (4.8-10.8)
[2018-12-13 03:17] LABS: MCV 100.3 fL (80.0-100.0)
[2018-12-13 03:32] LABS: ALBUMIN 1.6 g/dL (3.4-5.0); ANION GAP 12.7 mmol/L (8-16); BILIRUBIN - TOTAL 0.65 mg/dL (0.2-1.3); CALCIUM 8.7 mg/dL (8.5-10.1); CARBON DIOXIDE 27.7 mmol/L (21.0-32.0); CREATININE - SERUM 1.6 mg/dL (0.6-1.3); POTASSIUM - SERUM 3.4 mmol/L (3.5-5.1); PROTEIN - SERUM 6.6 g/dL (6.4-8.2)
--- NOTE | 2018-12-13 05:00 | NUR ---
COMPLETE LINEN CHANGE FOR INCONTINENT EPISODE. PATIENT REPOSITIONED, INDEPENDENTLY PROVIDES ORAL CARE, VSS, MEPILEX REPLACED, CONTINUE POC
--- NOTE | 2018-12-13 08:00 | NUR ---
PARTIAL LINEN CHANGE FOR PATIENT INCONTINENT BLADDER EPISODE. MEPILEX CHANGED
--- NOTE | 2018-12-13 09:07 | NUR ---
PT REFUSED BREAKFAST THIS AM. OFFERED SNACKS AND PT REFUSED. VSS. NO ACUTE DISTRESS NOTED. WILL CONTINUE PLAN OF CARE.
--- NOTE | 2018-12-13 11:06 | NUR ---
POTASSIUM RECHECK NOTED AT 3.7. NO ACUTE DISTRESS NOTED. WILL CONTINUE PLAN OF CARE.
--- NOTE | 2018-12-13 13:35 | NUR ---
UP IN BED AWAKE AT THIS TIME WATCHNG TV. DENIES ANY NEEDS. NO ACUTE DISTRESS NOTED. VSS. WILL CONTINUE PLAN OF CARE.
--- NOTE | 2018-12-13 15:20 | NUR ---
UP IN BED WATCHING TV AT THIS TIEM. PT DENEIS AYN NEEDS. NO ACUTE DISTRESS NOTED. VSS. WILL CONTINUE PLAN OF CARE.
--- NOTE | 2018-12-13 17:19 | NUR ---
PT REFUSED SUPPER AT THIS TIME STATING HE DID NOT WANT ANY OF IT. SNACKS OFFERED AND PT REFUSED THAT ALSO. PT STATES HE ONLY WANTS HAMBURGER AND FRIES. WILL CONTINUE PLAN OF CARE.
--- NOTE | 2018-12-13 19:19 | NUR ---
TOTAL LINEN CHANGE PROVIDED AT THIS TIME ALONG WITH BED BATH. HILDA CARE PROVIDED. NO ACUTE DISTRESS NOTED. WILL CONTINUE PLAN OF CARE.
--- NOTE | 2018-12-13 21:15 | NUR ---
NO VISITORS PRESENT AT THIS TIME, PT ASSISTED TO MORE COMFORTABLE POSITION, VSS.
--- NOTE | 2018-12-13 23:20 | NUR ---
PT DAUGHTER CALLED PER REQUEST, CONCERNED ABOUT HIS . PHONE CALL TRANSFERRED TO PT.
[2018-12-14] VITALS (24 sets, daily range): BP systolic 90–120; BP diastolic 49–80
--- NOTE | 2018-12-14 01:50 | NUR ---
PT WATCHING TV IN BED, POSITIONED FOR COMFORT.
[2018-12-14 03:33] LABS: BASOPHILS 0.2 % (0-2); EOSINOPHILS 0.5 % (0-7); HEMOGLOBIN 11.4 g/dL (13.5-17.5); IMMATURE GRANULOCYTES 1.4 % (0-5); LYMPHOCYTES 6.5 % (15-50); MCHC 31.7 g/dL (31.0-37.0); MCV 101.1 fL (80.0-100.0); MEAN PLATELET VOLUME 10.4 fL (7.4-10.4); MONOCYTES 6.9 % (2-11); NEUTROPHILS 84.5 % (40-80); PLATELET COUNT 232 10x3/uL (130-400); RBC 3.56 10x6/uL (4.20-6.10); RDW 17.8 % (11.5-14.5)
[2018-12-14 03:42] LABS: ALBUMIN 1.6 g/dL (3.4-5.0); ANION GAP 10.5 mmol/L (8-16); BILIRUBIN - TOTAL 0.72 mg/dL (0.2-1.3); CALCIUM 8.9 mg/dL (8.5-10.1); CARBON DIOXIDE 28.1 mmol/L (21.0-32.0); CREATININE - SERUM 1.4 mg/dL (0.6-1.3); POTASSIUM - SERUM 3.6 mmol/L (3.5-5.1); PROTEIN - SERUM 6.8 g/dL (6.4-8.2)
--- NOTE | 2018-12-14 05:01 | NUR ---
PT PLACED ON BIPAP 50% PER REQUEST/RESP DIFFICULTY, WILL MONITOR CLOSELY.
--- NOTE | 2018-12-14 05:35 | NUR ---
AM MEDS ADMINISTERED PER MD ORDER, PT STATES BREATHING IS EASIER, O2 SAT 99% ON 50% BIPAP.
--- NOTE | 2018-12-14 08:18 | NUR ---
UP IN BED ON BIPAP AT THIS TIME RESTING WITH EYES CLOSED. NO ACUTE DISTRESS NOTED. PT ORIENTED TO SELF, TIME, AND PLACE WITH SOME CONFUSION TO SITUATION. REORIENTATION PROVIDED. VSS. NO AUCTE DISTRESS NOTED. WILL CONTINUE PLAN OF CARE.
--- NOTE | 2018-12-14 09:14 | NUR ---
NOTED PROCEDURE FOR TOMORROW. ATTEMPTED TO CALL DAUGHTER TO GET AHOLE OF PTS ('S PHONE IS DISCONNECTED). NO ANSWER NOTED. WILL CONTINUE PLAN OF CARE.
--- NOTE | 2018-12-14 11:21 | NUR ---
DR MOMIN HAS BEEN CONSULTED REGARDING AFIB (PT HAS CHRONIC AFIB) FOR MANAGEMENT. PHYSICIAN HAS BEEN MADE AWARE BY DR COLE. NO ACUTE DISTRESS NOTED. WILL CONTINUE PLAN OF CARE.
--- NOTE | 2018-12-14 12:13 | NUR ---
SPOKE WITH PTS DAUGHTER, STATED "HIS DOESN'T WANT ANYTHING TO DO WITH HIM EXCEPT FOR HIS MONEY. SHE SOLD THE HOUSE, AND CAR, HAS NO CELLPHONE, AND IS LIVING WITH US NOW. SHE IS PACKING HER BAGS TO LEAVE, BUT HAS NO WHERE ELSE TO GO." CASE MANAGEMENT NOTIFIED OF THIS.
--- NOTE | 2018-12-14 13:10 | NUR ---
INCONTINENT BOWEL MOVEMENT NOTED AT THIS TIME, LARGE SOFT BROWN. TOTAL LINEN CHANGE PROVIDED WITH BED BATH, HILDA CARE. PT TURNED Q2H. WILL CONTINUEPLAN OF CARE.
--- NOTE | 2018-12-14 14:39 | NUR ---
NOTED POSITIVE OCCULT BLOOD TO STOOL. DR COLE PAGED AT THIS TIME.
[2018-12-14 14:40] LABS: CKMB 1.1 U/L (0.0-3.6); CREATINE KINASE 36 UL (21-232); TROPONIN-I 0.018 ng/mL (0.000-0.060)
--- NOTE | 2018-12-14 16:59 | NUR ---
UP IN BED WATCHING TV AT THIS TIME. NO ACUTE DISTRESS NOTED. VSS. WILL CONTINUE PLAN OF CARE.
--- NOTE | 2018-12-14 17:17 | NUR ---
UP IN BED WATCHIN TV AT THIS TIME. NO ACUTE DISTRESS NOTED. 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 PT STATES HE CAN CONTINUE USING FLUTTER AND IS DURING COMMERCIAL BREAKS. IS ATTEMPT IS 250. WILL CONTINUE PLAN OF CARE.
[2018-12-14 17:50] LABS: CREATINE KINASE 26 UL (21-232); TROPONIN-I 0.026 ng/mL (0.000-0.060)
--- NOTE | 2018-12-14 18:37 | NUR ---
INCONTINENT BOWEL MOVEMENT NOTED AT THIS TIME WELL INCONTINENT VOID. TOTAL LINEN CHANGE PROVIDED. HILDA CARE PROVIDED. NO ACUTE DISTRESS NOTED. VSS. WILL CONTINUE PLAN OF CARE.
--- NOTE | 2018-12-14 19:24 | NUR ---
PT WITH EYES OPEN WATCHING TV. USES CALL LIGHT REQUESTING LIGHTS TO BE TURNED OUT. ASSESSMENT COMPLETED SEE FLOW SHEET. LIGHTS TURNED OUT PER REQUEST. WILL CONTINUE TO OBSERVE.
--- NOTE | 2018-12-14 21:10 | NUR ---
PT RESTING WITH EYES CLOSED AND CHEST RISING. EASILY AROUSED TO VERBAL STIMUI. DIGOXIN HELD HR 58 AT TIME OF ADMINISTRATION WITH MONITOR JUMPING FROM 52 TO 71 WITH IT STAYING AROUND 60. WILL CONTINUE TO OBSERVE.
[2018-12-14 23:12] LABS: CREATINE KINASE 25 UL (21-232); TROPONIN-I 0.024 ng/mL (0.000-0.060)
--- NOTE | 2018-12-14 23:45 | NUR ---
REASSESSMENT COMPLETED, SEE FLOW SHEET. PT INCONTINENT OF URINE WITH PERICARE PROVIDED, PAD, GOWN, FLAT SHEET AND BLANKET CHANGED. O2 DECREASED WITH PT ASKED TO TAKE SLOW DEEP BREATHS THROUGHT NOSE AND SENSOR REPOSTIIONED AND O2 WITHIN ACCEPTED PARAMETERS. PT RECEIVED SCHEDULED MEDICATION WITH PRN PAIN MEDICATION NO COUGHING NOTED. WILL CONTINUE TO OBSERVE.
[2018-12-15] VITALS (25 sets, daily range): BP systolic 82–112; BP diastolic 45–71
--- NOTE | 2018-12-15 02:17 | NUR ---
PT MORE CONFUSED. SPO2 DROPS TO MID 80'S AND RETURNS TO 90'S. PLACED ON BIPAP. AFTER PERICARE AND LINEN CHANGE FROM BOWEL INCONTINENCE. CALL LIGHT IN REACH. WILL CONTINUE TO OBSERVE.
--- NOTE | 2018-12-15 03:08 | NUR ---
REASSESSMENT COMPLETED, SEE FLOW SHEET. WILL CONTINUE TO OBSERVE.
[2018-12-15 04:34] LABS: BASOPHILS 0.1 % (0-2); EOSINOPHILS 0.2 % (0-7); HEMATOCRIT 35.6 % (42.0-54.0); HEMOGLOBIN 10.9 g/dL (13.5-17.5); IMMATURE GRANULOCYTES 0.9 % (0-5); LYMPHOCYTES 5.7 % (15-50); MCH 31.7 pg (26.0-34.0); MCHC 30.6 g/dL (31.0-37.0); MEAN PLATELET VOLUME 10.2 fL (7.4-10.4); MONOCYTES 6.6 % (2-11); NEUTROPHILS 86.5 % (40-80); PLATELET COUNT 234 10x3/uL (130-400); RBC 3.44 10x6/uL (4.20-6.10); RDW 18.1 % (11.5-14.5)
[2018-12-15 04:39] LABS: MCV 103.5 fL (80.0-100.0); WBC 19.9 10x3/uL (4.8-10.8)
[2018-12-15 04:51] LABS: ALBUMIN 1.7 g/dL (3.4-5.0); ANION GAP 12.6 mmol/L (8-16); BILIRUBIN - TOTAL 0.7 mg/dL (0.2-1.3); CALCIUM 8.7 mg/dL (8.5-10.1); CARBON DIOXIDE 31.1 mmol/L (21.0-32.0); CREATININE - SERUM 1.8 mg/dL (0.6-1.3); POTASSIUM - SERUM 3.7 mmol/L (3.5-5.1); PROTEIN - SERUM 6.9 g/dL (6.4-8.2)
--- NOTE | 2018-12-15 06:16 | NUR ---
PT INCONTINENT OF BLADDER WITH PERICARE PROVIDED AND PARTIAL BATH GIVEN. PAD, FLAT SHEET, AND GOWN CHANGED. TO TOLERATED WELL. PT CONFUSED, FREQUENTLY ASKING FOR SOMETHING TO DRINK AND REMINDED OF NPO STATUS AND PT OK.
--- NOTE | 2018-12-15 07:50 | NUR ---
SHIFT REPORT RECEIVED. AROUSES TO VOICE. RATES PAIN 8/10. CURRENTLY NPO FOR SCHEDULED PROCEDURE. ON 4L OF O2 VIA HIGH FLOW NC. RHONQUI HEARD THROUGH OUT LUNG FIELD. WEAK COUGH NOTED. NO SPUTUM NOTED AT THIS TIME. HAS LEFT FOREARM PIV SL. DRESSING NOTED ON RIGHT HIP CDI. SCD'S IN PLACE. SHIFT ASSESSMENT COMPLETED. WILL CONTINUE TO MONITOR.
--- NOTE | 2018-12-15 09:00 | NUR ---
OXYCODONE GIVEN FOR PAIN 8/10 ON BACK, AND RIGHT HIP. DR. HUERTAS AT BEDSIDE. PT TOLD DR. HUERTAS THAT HE WANTS TO GO HOME. NO FAMILY AT BEDSIDE AT THIS TIME. WILL CONTINUE TO MONITOR.
--- NOTE | 2018-12-15 09:54 | NUR ---
INCONTINENT EPISODE OF BROWN LOOSE STOOL NOTED. PERICARE PERFORMED. PARTIAL LINEN CHANGE PROVIDED. MEPILEX DRESSING REMOVED. SILVER DOLLAR SIZE STAGE 2 ULCER NOTED ON LEFT BUTTOCKS, NICKEL SIZE STAGE 2 NOTED ON RIGHT BUTTOCKS. NEW MEPILEX DRESSING APPLIED TO AREA. PT TOLERATED WELL. WILL CONTINUE TO MONITOR.
--- NOTE | 2018-12-15 10:39 | NUR ---
INCONTINENT EPISODE OF LOOSE BROWN STOOL NOTED. PERICARE AND PARTIAL LINEN CHANGE PROVIDED. PULLED UP AND REPOSITIONED FOR COMFORT. NO FURTHER NEEDS. WILL CONTINUE TO MONITOR.
[2018-12-15 11:20] LABS: INR 1.19 (0.85-1.17); PROTIME 14.6 SECONDS (11.6-15.0)
--- NOTE | 2018-12-15 12:27 | NUR ---
Nutrition follow-up: Pt NPO for biopsy today Labs reviewed Wt: 146# +BM Pt confused per nursing RDN following.
--- NOTE | 2018-12-15 15:30 | NUR ---
REASSESSMENT COMPLETE PER FLOW SHEET. VSS. NO NEW CHANGES WILL CONTINUE TO MONITOR
--- NOTE | 2018-12-15 19:05 | NUR ---
Received patient resting in bed with eyes open, assessment completed per flowsheet. Patient answers appropriately/follows instructions, short moments of forgetfulness noted. S1/S2 noted Sinus Tez with rare PAC on telemetry and HR 57, rythmic and regular. Breathing is shallow on 4L via HFNC with O2 sat 93%, rhonchi noted bilateral upper and mid with diminished lower. Abdomen is round/soft with bowel sounds active x4, non-tender. Patient incontinent of bowel bladder, concentrated urine noted on bedsheets. Full linen change performed, patient tolerated with c/o R hip pain. PRN medication already provided, repositioned with small stated relief. No further needs at this time, see flowsheet for details. All VSS and will continue to monitor.
--- NOTE | 2018-12-15 21:00 | NUR ---
Patient resting in bed with eyes closed, HS meds given without difficulty. Bed bath/linen change performed, repositioned for comfort. Audible crackles noted with weak/non-productive cough observed, will continue to monitor.
--- NOTE | 2018-12-15 23:00 | NUR ---
Reassessment completed per flowsheet, no changes noted from previous assessment. Answers appropriately/follows instructions. S1/S2 noted Controlled Afib on telemetry with HR 60, rythmic and regular. Breathing is shallow on BiPAP 50% with O2 sat 100%, crackles noted bilateral upper and mid with diminished lower. All pulses palpable with cap refill < 3 sec, skin warm/dry. Denies pain or other needs at this time, see flowsheet for details. All VSS and will continue to monitor.
[2018-12-16] VITALS (30 sets, daily range): BP systolic 61–120; BP diastolic 30–71
--- NOTE | 2018-12-16 01:00 | NUR ---
Patient resting in bed on BiPAP 50% with O2 sat 99%, crackles noted bilateral upper and mid with diminished lower. Patient repeatedly tries to remove BiPAP mask, explained need with RT present to assist. Patient states understanding but continues to attempt to remove mask. Will continue close monitoring.
--- NOTE | 2018-12-16 03:00 | NUR ---
Reassessment completed per flowsheet, no changes from previous assessment. S1/S2 noted Controlled Afib on telemetry with HR 62. Breathing is shallow on BiPAP 50% with O2 sat 99%, crackles noted bilateral upper and mid with diminished lower. All pulses palpable with cap refill < 3 sec, skin warm/dry. Denies pain or other needs at this time, see flowsheet for details. All VSS and will continue to monitor.
[2018-12-16 05:00] LABS: HEMATOCRIT 38.2 % (42.0-54.0); HEMOGLOBIN 11.7 g/dL (13.5-17.5); MCHC 30.6 g/dL (31.0-37.0); MCV 104.4 fL (80.0-100.0); MEAN PLATELET VOLUME 10.3 fL (7.4-10.4); PLATELET COUNT 334 10x3/uL (130-400); RBC 3.66 10x6/uL (4.20-6.10); WBC 21.3 10x3/uL (4.8-10.8)
[2018-12-16 05:07] LABS: ALBUMIN 1.8 g/dL (3.4-5.0); ANION GAP 12.9 mmol/L (8-16); BILIRUBIN - TOTAL 0.67 mg/dL (0.2-1.3); CALCIUM 8.6 mg/dL (8.5-10.1); CARBON DIOXIDE 30.1 mmol/L (21.0-32.0); PROTEIN - SERUM 7.5 g/dL (6.4-8.2)
[2018-12-16 05:08] LABS: CREATININE - SERUM 2.4 mg/dL (0.6-1.3)
--- NOTE | 2018-12-16 09:14 | NUR ---
PATIENT UNABLE TO COMMUNICATE ENOUGH TO SWALLOW CORRCTLY AT PRESENT. SPEECH TO SEE TODAY PER NOTES
[2018-12-16 09:39] LABS: LYMPHOCYTES 5 % (15-50); MONOCYTES 8 % (2-11); NEUTROPHILS 83 % (40-80); ROULEAUX 1+
--- NOTE | 2018-12-16 10:10 | NUR ---
NO NOTED CHANGE
[2018-12-16 10:17] LABS: PLATELET ESTIMATE NORMAL
--- NOTE | 2018-12-16 10:21 | NUR ---
NO CHANGE NOTED
--- NOTE | 2018-12-16 11:40 | NUR ---
NURSE SUMMONED TO BEDSIDE TO NOTE DECREASED BP, NEW ORDER RECD. FOR IVF ONLY. UPDATE GIVEN TO CHARGE NURSE.
--- NOTE | 2018-12-16 14:23 | NUR ---
RT PLACED PATIENT ON HIGH FLOW O2 IN ORDER TO ALLOW ST TO EVALUATE SWALLOWING, PATIENTS O2 SAT FELL FROM 94 TO 72 IN LESS THAN 30 SECONDS. PLAED BACK ON BIPAP AND PLACED ON 100% O2. ST WAS OBVIOUSLY UNABLE TO COMPLET THE EVALUATION.
--- NOTE | 2018-12-16 16:16 | NUR ---
DR. HUERTAS SPOKE AT [facility] WITH THE DAUGHTER PAMELA, THE WIFES LISTED PHONE NUMBER IS NOT ACTIVE. DR. HUERTAS EXPLAINED AT LENGTH THE PATIENTS CURRENT PROB., POSSIBLE FUTURE TREATMENT, AND CURRENT EXPECTED OUTCOME WELL POSSIBLE OUTCOMES IF PATIENT CONDITION CONTINUES TO DECREASE.
--- NOTE | 2018-12-16 17:45 | MORECARE ---
CASE MANAGEMENT DISCHARGE SUMMARY PATIENT: AMY BRONSON JR UNIT: [id number] ADM DATE: 12/02/18 AGE: 68 : [birth year] SEX: M ROOM/BED: D.2305 AUTHOR: GRAZYNA,DOC PHYSICIAN: REFERRING PHYSICIAN: DMITRIY CORRAL MD DATE OF SERVICE: 12/16/18 Discharge Plan Patient Name: AMY BRONSON Facility: [facility]:[place] : 1950 Planned Disposition: Prison Facility Anticipated Discharge Date: Discharge Date: Expected LOS: Initial Reviewer: [email or web address] Initial Review Date: 12/02/2018 Generated: 12/16/18 6:44 pm Comments DCP- Discharge Planning Updated by [id number]: Mickie Roach on 12/16/18 4:[address] CM attempted to call Alba @ [facility] to give update on patient. Alba wasn't available left message to call CM back. DCP- Discharge Planning Updated by [email or web address]: Maria Elena Edwards on 12/11/18 12:[address] Patient was transferred to ICU, Updated Alba on this she will follow up with [facility] the ICU CM DCP- Discharge Planning Updated by [id number]: Maria Elena Edwards on 12/11/18 11:[address] spoke with Alba [facility] they are waiting on Auth DCP- Discharge Planning Updated by [id number]: Maria Elena Edwards on 12/10/18 6:[address] updated clinical sent to [facility] DCP- Discharge Planning Updated by [id number]: Maria Elena Edwards on 12/09/18 3:[address] ATTEMPTED TO CALL RICHARD (SON) BACK ASKED, BUT THERE WAS NOT AN ANSWER. RICHARD # [phone] DCP- Discharge Planning Updated by [email or web address]: Maria Elena Edwards on 12/09/18 2:[address] KAYA SENT DCP- Discharge Planning Updated by [id number]: Maria Elena Edwards on 12/08/18 7:[address] updated clinicals sent to [facility] DCP- Discharge Planning Updated by [email or web address]: Janine Murphy on 12/07/18 5:[address] PRIMARY NURSE REPORTS THAT THE PATIENT'S CALLED AND SAID ALL THE UTILITIES ARE OFF AND THEY HAVE 3 DAYS TO GET THEIR BELONGINGS OUT. PATIENT IS VERY UPSET WANTING TO LEAVE. HE HAS A RAPID HEART RATE. HE IS IN UNCONTROLLED AFIB. TELEMETRY. STARTED CARDIZEM 30 MGM Q6H ON 12/06. HE ALSO HAS DECREASING H/H. IS ON 4/L NASAL O2. THE NURSE CALLED AND SPOKE WITH THE DAUGHTER. PATIENT'S IS WITH HER. REPORTEDLY THE PATIENT HAS A CHECK. HE MUST GALE TO PAY BILLS. QUESTION OF CIRCUMSTANCE OF HOUSING AND HIS CARE PRIOR TO ADMIT. POSSIBLE APS . REPORTEDLY THE PATIENT HAD BEEN HOME ALONE. WAS UNKEMPT ON ADMISSION. ?? MENTAL HEALTH ISSUES W/ . AMBULANCE CREW MAY HAVE DONE REPORT. WILL NEED TO F/U [facility]'S MAIN OFFICE IN [place] ON SATURDAY. DCP- Discharge Planning Updated by [id number]: Maria Elena Edwards on 12/04/18 3:[address] Patient Name: AMY BRONSON Admission Status: ER Accout number: [id number] Admission Date: 12-02-2018 : 1950 Admission Diagnosis: Attending: DMITRIY CORRAL Current LOS: 2 Anticipated DC Date: Planned Disposition: Prison Facility Primary Insurance: [employer] ADV Discharge Planning Comments: CM met with patient to assess discharge planning needs. Patient is alert and oriented to person and time. He stated that he can go home and he will be fine. He lives with his Arianna and has a walker. I explained to him that therapy and nursing did not think he was safe to go home yet and will need to go to rehab, he said he would have help from his neighbor to help him move and he will be fine. Permission to call his . I called Arianna his and she stated that she can not take care of him at home. He needs more help that she can give, talked to her about skilled facilities she state [facility] in [place] his her first choice I have sent referral to them. IMM also explained. CM will continue to follow and assist with DC planning Scrap Drop Crane Operator: Maria Elena Edwards DCPIA - Discharge Planning Initial Assessment Updated by [email or web address]: Maria Elena Edwards on 12/04/18 4:11 pm * Is the patient Alert and Oriented? Yes * PCP [facility] * [facility] * Preadmission Environment Home with Family * ADLs Partial Dependent * Partial ADLs (Assistance needed) Dressing Toileting * Equipment Rolling Walker * List name and contact numbers for known caregivers / representatives who currently or will assist patient after discharge: ARIANNA () [phone] * Verbal permission to speak to the caregivers and representatives has been obtained from the patient. Yes * Community resources currently utilized None * Additional services required to return to the preadmission environment? Yes * Can the patient safely return to the preadmission environment? No * Has this patient been hospitalized within the prior 30 days at any hospital? No Coverage Notice Reviewer: [email or web address] Merna Edwards Notice Issued Date-Time: 12/04/2018 16:00 Notice Type: IM Discharge Notice Notice Delivered To: Patient Relationship to Patient: Spouse Texture Artist Name: arianna Delivery Method: PHONE - Phone Kera Days: Prior Verbal Notification: Yes Recipient Understood Notice: Recipient Signature: Med Rec Note Co-signed by Attending: Coverage Notice Comment: Reviewer: [email or web address] Merna Edwards Notice Issued Date-Time: 12/04/2018 16:00 Notice Type: Patient Choice Letter Notice Delivered To: Family Member Relationship to Patient: Spouse Texture Artist Name: Arianna Delivery Method: PHONE - Phone Kera Days: Prior Verbal Notification: Yes Recipient Understood Notice: Recipient Signature: Med Rec Note Co-signed by Attending: Coverage Notice Comment: Last DP export: 12/11/18 12:44 pm Patient Name: AMY BRONSON Page [id number] at 1745 All edits/amendments must be made on the electronic document DICTATION DATE: 12/16/181743 LIVESTOCK YARD ATTENDANT: LEWIS 12/16/181743 RPT#: [id number] DC DATE: STATUS: ADM IN [facility] [address] [place] [address] END OF REPORT
--- NOTE | 2018-12-16 19:20 | NUR ---
REC'D TO CARE, SAP DIRECTOR PER FLOWSHEET. PT ON BIPAP, NO SIGN OF DISTRESS.. VERY LETHARGIC, BUT ABLE TO MOTION AND EXPRESS NEEDS. NODS HEAD APPROP. VSS. IVFS INFUSING TO R PICC, DSG C/D/I - SEE FLOWSHEET. PT VERY THIN, WITH BONY PROMINENCES. R HIP DSG C/D/I. WILL CONT Q2 TURN AND ORAL CARE PER PROTOCOL. ALARMS ON AND C/L IN REACH.
--- NOTE | 2018-12-16 20:19 | NUR ---
UPDATE GIVEN TO DR. HUERTAS - NEW ORDER TO HOLD ALL PO MEDS.
--- NOTE | 2018-12-16 20:22 | NUR ---
OT NOTE: ATTEMPTED TO SEE PT IN AM, HOWEVER, ON BI PAP. ACCOMPANIED S.T. IN PM TO ATTEMPT TO POSITION PT UPRIGHT SO THAT S.T COULD EVALUATE SWALLOW. HOWEVER, PT WAS REMOVED FROM BI PAP FOR A VERY SHORT TIME..02 SATS DROPPED IMMEDIATELY. BI PAP REPLACE. PT WAS ALERT BUT MINIMAL VERBALIZAITON. ERIKA VOSS, OTR/L
--- NOTE | 2018-12-16 20:30 | NUR ---
DAUGHTER AT BS. PT GIVEN BREAK FROM BIPAP TO 7L HF - ORAL CARE PROVIDED - PT TOLERATED BREAK, NO SIGN OF DISTRESS. NON-VERBAL, BUT NODS HEAD APPROP. DAUGHTER VISITED FOR ABOUT 15MIN, POX STILL 90S, BUT PT C/O SOB - BACK ON BIPAP.
--- NOTE | 2018-12-16 23:20 | NUR ---
REASSESSMENT PER FLOWSHEET, NO ACUTE CHANGES, REMAINS LETHARGIC. TOLERATES BREAKS FOR ORAL CARE. WEAK COUGH.
[2018-12-17] VITALS (79 sets, daily range): BP systolic 79–158; BP diastolic 23–78
--- NOTE | 2018-12-17 00:52 | NUR ---
REPOSTIONED UP IN BED TO L SIDE WITH PILLOWS, ORAL CARE PROVIDED, PT MORE LETHARGIC, BUT NODS HEAD. VSS.
--- NOTE | 2018-12-17 02:20 | NUR ---
PT WITH AGONAL BREATHING AND MINIMAL RESPONSIVENESS - RT AT BS FOR ABG. DAUGHTER CALLED, MESSAGE LEFT. LEVOPHED GTT TITRATED FOR SBP 83.
--- NOTE | 2018-12-17 02:26 | NUR ---
HERE, NOTIFIED OF CHANGE IN RESPONSIVENESS AND RESP.
--- NOTE | 2018-12-17 02:30 | NUR ---
ABGS RESULTED, CALLED TO DR. CORRAL. AT , REQUESTS FULL CODE STATUS. ORDER FOR STAT INTUBATION - DR. OCHOA NOTIFIED. 0241 PT INTUBATED. CALLED FOR STAT CXR.
--- NOTE | 2018-12-17 03:30 | NUR ---
PT INCONT OF SMALL SOFT BROWN STOOL. COMPLETE HIBICLENS BATH AND LINEN CHANGE DONE. EYES NOTED DRY/RED, SALINE SOAKED GAUZE APPLIED..
--- NOTE | 2018-12-17 05:00 | NUR ---
RT AT BS, ORAL CARE DONE. PT WAKING UP, OPENS EYES AND REACHES FOR OETT. INITIATED B/L SOFT WRIST RESTRAINTS PER MD ORDER.
[2018-12-17 05:13] LABS: HEMATOCRIT 38.2 % (42.0-54.0); HEMOGLOBIN 11.6 g/dL (13.5-17.5); MCH 32.3 pg (26.0-34.0); MCHC 30.4 g/dL (31.0-37.0); MCV 106.4 fL (80.0-100.0); MEAN PLATELET VOLUME 10.6 fL (7.4-10.4); PLATELET COUNT 358 10x3/uL (130-400); RBC 3.59 10x6/uL (4.20-6.10); RDW 18.5 % (11.5-14.5); WBC 31.1 10x3/uL (4.8-10.8)
[2018-12-17 05:19] LABS: ALBUMIN 1.4 g/dL (3.4-5.0); ANION GAP 13.9 mmol/L (8-16); BILIRUBIN - TOTAL 0.72 mg/dL (0.2-1.3); CALCIUM 7.2 mg/dL (8.5-10.1); CARBON DIOXIDE 26.9 mmol/L (21.0-32.0); MAGNESIUM - SERUM 2.5 mg/dL (1.8-2.4); PROTEIN - SERUM 6.5 g/dL (6.4-8.2)
--- NOTE | 2018-12-17 05:32 | NUR ---
PT COUGHING AGAINST VENT, MORE ALERT, NODDING HEAD. INITIATE PROPOFOL GTT PER MD ORDER - WILL TITRATE PER ORDER. IN TO SEE PT AND UPDATED.
[2018-12-17 05:37] LABS: CREATININE - SERUM 3.8 mg/dL (0.6-1.3); POTASSIUM - SERUM 4.8 mmol/L (3.5-5.1)
[2018-12-17 05:53] LABS: LYMPHOCYTES 6 % (15-50); MONOCYTES 3 % (2-11); NEUTROPHILS 75 % (40-80); PLATELET ESTIMATE NORMAL; PLATELET MORPHOLOGY GIANT PLTS PRESENT
--- NOTE | 2018-12-17 06:00 | NUR ---
DIPRIVAN TITRATED UP TO 20MCG/KG/MIN PER ORDER/PROTOCOL.
[2018-12-17 06:05] LABS: APPEARANCE HAZY (CLEAR); BILIRUBIN NEGATIVE (NEGATIVE); COLOR YELLOW (YELLOW); GLUCOSE NEGATIVE (NEGATIVE); KETONE NEGATIVE (NEGATIVE); NITRITE NEGATIVE (NEGATIVE); PROTEIN NEGATIVE (NEGATIVE); SPECIFIC GRAVITY 1.015 (1.005-1.020); UROBILINOGEN NORMAL (NORMAL)
[2018-12-17 06:08] LABS: BACTERIA MANY /hpf (NONE SEEN); EPITHELIAL CELLS RARE /hpf (0-5); RED CELLS - URINE OCC /hpf (0-5)
--- NOTE | 2018-12-17 07:00 | NUR ---
REC'D AND RESUMED CARE, ETT TO VENTILATION AND SECURED, IN AC MODE WITH A RATE OF 18, OGT WOT LIWS, RIGHT UPPER ARM PICC WITH PROPOFAL AT 20 MCG/8.6 CC/HR, D5NS AT 100 CC/HR, LEVAPHED AT 30 MCG,/56.3 CC/HR, NGUYEN TO GRAVITY WITH DARK DRAINAGE TO BAG, SCD'S B/L, ASSESSMENT COMPLETED PER FLOWSHEET, OPENS EYES AND NODS AND SHAKES HEAD TO YES AND KNOW QUESTIONS, B/L WRIST RESTRAINTS IN USE, PERVIOUS SHIFT REPORTED PULLING AT LINES, AND AGITATED, REPOSITIONED TO LEFT SIDE WITH PILLOW PROPPED TO BACK
--- NOTE | 2018-12-17 07:30 | NUR ---
TITRATED LEVOPHED TO 29 MCG, SBP 104/63, MAP 75
--- NOTE | 2018-12-17 08:00 | NUR ---
LEVAPHED TITRATED TO 28 MCG, BP 112/63, WITH MAP OF 73
--- NOTE | 2018-12-17 08:30 | NUR ---
LEVAPHED TITRATED 27, BP 114/65 WITH 78 MAP
--- NOTE | 2018-12-17 09:00 | NUR ---
BP 118/66 WITH A MAP OF 76 LEVAPHED TITRATED TO 26 MCG
--- NOTE | 2018-12-17 10:26 | NUR ---
Nutrition follow-up: Pt now intubated, sedated Labs reviewed WT: 145# +BM Pt is now assessed with severe malnutrition of acute illness R/T respiratory failure AEB < 50% intake of estimated energy needs for > 7 days; measurably reduced flash welder strength; obeserved moderate subcutaneous fat, muscle loss to all exteremties; observed temporal wasting. Will need to begin nutrition support within 24 hours if pt remains intubated. Recommend Pulmocare @ 25 ml/hr with increase to goal rate of 50 ml/hr. Flush with 100 ml H2O Q [address] following.
--- NOTE | 2018-12-17 11:00 | NUR ---
REASSESSMENT COMPLETE, NO ACUTE CHANGE FROM PREVIOUS, VSS, CONTINUES ON PRESSERS AND SEDATION
--- NOTE | 2018-12-17 13:56 | MORECARE ---
CASE MANAGEMENT DISCHARGE SUMMARY PATIENT: AMY BRONSON JR UNIT: [id number] ADM DATE: 12/02/18 AGE: 68 : 49 SEX: M ROOM/BED: D.2305 AUTHOR: GRAZYNA,DOC PHYSICIAN: REFERRING PHYSICIAN: DMITRIY CORRAL MD DATE OF SERVICE: 12/17/18 Discharge Plan Patient Name: AMY BRONSON Facility: [facility]:[place] : 1950 Planned Disposition: Penitentiary Facility Anticipated Discharge Date: Discharge Date: Expected LOS: Initial Reviewer: [id number] Initial Review Date: 12/02/2018 Generated: 12/17/18 2:56 pm Comments DCP- Discharge Planning Updated by [email or web address]: Mickie Roach on 12/17/18 12:[address] CM spoke with [facility] [employer] this am and faxed updated records. CM will continue to update Alba on patient status. CM will continue to follow and assist as needed with discharge planning / needs. DCP- Discharge Planning Updated by [id number]: Mickie Roach on 12/16/18 4:[address] CM attempted to call [facility] [employer] to give update on patient. Alba wasn't available left message to call CM back. DCP- Discharge Planning Updated by [id number]: Maria Elena Edwards on 12/11/18 12:[address] Patient was transferred to ICU, Updated Alba on this she will follow up with [facility] the ICU CM DCP- Discharge Planning Updated by [id number]: Maria Elena Edwards on 12/11/18 11:[address] spoke with [facility] [employer] they are waiting on Auth DCP- Discharge Planning Updated by [id number]: Maria Elena Edwards on 12/10/18 6:[address] updated clinical sent to [facility] DCP- Discharge Planning Updated by [id number]: Maria Elena Edwards on 12/09/18 3:[address] ATTEMPTED TO CALL RICHARD (SON) BACK ASKED, BUT THERE WAS NOT AN ANSWER. RICHARD # [phone] DCP- Discharge Planning Updated by [id number]: Maria Elena Edwards on 12/09/18 2:[address] [facility] SENT DCP- Discharge Planning Updated by [email or web address]: Maria Elena Edwards on 12/08/18 7:[address] updated clinicals sent to [facility] DCP- Discharge Planning Updated by [email or web address]: Janine Murphy on 12/07/18 5:[address] PRIMARY NURSE REPORTS THAT THE PATIENT'S CALLED AND SAID ALL THE UTILITIES ARE OFF AND THEY HAVE 3 DAYS TO GET THEIR BELONGINGS OUT. PATIENT IS VERY UPSET WANTING TO LEAVE. HE HAS A RAPID HEART RATE. HE IS IN UNCONTROLLED AFIB. TELEMETRY. STARTED CARDIZEM 30 MGM Q6H ON 12/06. HE ALSO HAS DECREASING H/H. IS ON 4/L NASAL O2. THE NURSE CALLED AND SPOKE WITH THE DAUGHTER. PATIENT'S IS WITH HER. REPORTEDLY THE PATIENT HAS A CHECK. HE MUST GALE TO PAY BILLS. QUESTION OF CIRCUMSTANCE OF HOUSING AND HIS CARE PRIOR TO ADMIT. POSSIBLE APS . REPORTEDLY THE PATIENT HAD BEEN HOME ALONE. WAS UNKEMPT ON ADMISSION. ?? MENTAL HEALTH ISSUES W/ . AMBULANCE CREW MAY HAVE DONE REPORT. WILL NEED TO F/U [employer]'S MAIN OFFICE IN [place] ON SATURDAY. DCP- Discharge Planning Updated by [email or web address]: Maria Elena Edwards on 12/04/18 3:[address] Patient Name: AMY BRONSON Admission Status: ER Accout number: [id number] Admission Date: 12-02-2018 : 1950 Admission Diagnosis: Attending: DMITRIY CORRAL Current LOS: 2 Anticipated DC Date: Planned Disposition: Penitentiary Facility Primary Insurance: [place] [employer] MEDICARE ADV Discharge Planning Comments: CM met with patient to assess discharge planning needs. Patient is alert and oriented to person and time. He stated that he can go home and he will be fine. He lives with his Arianna and has a walker. I explained to him that therapy and nursing did not think he was safe to go home yet and will need to go to rehab, he said he would have help from his neighbor to help him move and he will be fine. Permission to call his . I called Arianna his and she stated that she can not take care of him at home. He needs more help that she can give, talked to her about skilled facilities she state [facility] in [place] his her first choice I have sent referral to them. IMM also explained. CM will continue to follow and assist with DC planning Director Process Improvement: Maria Elena Edwards DCPIA - Discharge Planning Initial Assessment Updated by [email or web address]: Maria Elena Edwards on 12/04/18 4:11 pm * Is the patient Alert and Oriented? Yes * PCP [facility] * [facility] * Preadmission Environment Home with Family * ADLs Partial Dependent * Partial ADLs (Assistance needed) Dressing Toileting * Equipment Rolling Walker * List name and contact numbers for known caregivers / representatives who currently or will assist patient after discharge: ARIANNA () [phone] * Verbal permission to speak to the caregivers and representatives has been obtained from the patient. Yes * Community resources currently utilized None * Additional services required to return to the preadmission environment? Yes * Can the patient safely return to the preadmission environment? No * Has this patient been hospitalized within the prior 30 days at any hospital? No Coverage Notice Reviewer: [id number] Merna Edwards Notice Issued Date-Time: 12/04/2018 16:00 Notice Type: IM Discharge Notice Notice Delivered To: Patient Relationship to Patient: Spouse Relationship Manager Name: arianna Delivery Method: PHONE - Phone Kera Days: Prior Verbal Notification: Yes Recipient Understood Notice: Recipient Signature: Med Rec Note Co-signed by Attending: Coverage Notice Comment: Reviewer: [id number] Merna Edwards Notice Issued Date-Time: 12/04/2018 16:00 Notice Type: Patient Choice Letter Notice Delivered To: Family Member Relationship to Patient: Spouse Relationship Manager Name: Arianna Delivery Method: PHONE - Phone Kera Days: Prior Verbal Notification: Yes Recipient Understood Notice: Recipient Signature: Med Rec Note Co-signed by Attending: Coverage Notice Comment: Last DP export: 12/16/18 4:45 pm Patient Name: AMY BRONSON Page [id number] at 1356 All edits/amendments must be made on the electronic document DICTATION DATE: 12/17/18 1356 PAGEANT DIRECTOR: LEWIS 12/17/18 1356 RPT#: [id number] DC DATE: STATUS: ADM IN [facility] [address] [place] [address] END OF REPORT
--- NOTE | 2018-12-17 14:04 | MORECARE ---
CASE MANAGEMENT DISCHARGE SUMMARY PATIENT: AMY BRONSON JR UNIT: [id number] ADM DATE: 12/02/18 AGE: 68 : 49 SEX: M ROOM/BED: D.2305 AUTHOR: GRAZYNA,DOC PHYSICIAN: REFERRING PHYSICIAN: DMITRIY CORRAL MD DATE OF SERVICE: 12/17/18 Discharge Plan Patient Name: AMY BRONSON Facility: [facility]:[place] : 1950 Planned Disposition: Custodial Facility Anticipated Discharge Date: Discharge Date: Expected LOS: Initial Reviewer: [id number] Initial Review Date: 12/02/2018 Generated: 12/17/18 3:03 pm Comments DCP- Discharge Planning Updated by [email or web address]: Mickie Roach on 12/17/18 12:[address] CM spoke with Alba [employer] this am and faxed updated records. CM will continue to update Alba on patient status. CM will continue to follow and assist as needed with discharge planning / needs. DCP- Discharge Planning Updated by [email or web address]: Mickie Roach on 12/16/18 4:[address] CM attempted to call [facility] [employer] to give update on patient. Alba wasn't available left message to call CM back. DCP- Discharge Planning Updated by [id number]: Maria Elena Edwards on 12/11/18 12:[address] Patient was transferred to ICU, Updated Alba on this she will follow up with [facility] the ICU CM DCP- Discharge Planning Updated by [id number]: Maria Elena Edwards on 12/11/18 11:[address] spoke with [facility] [employer] they are waiting on Auth DCP- Discharge Planning Updated by [id number]: Maria Elena Edwards on 12/10/18 6:[address] updated clinical sent to [facility] DCP- Discharge Planning Updated by [id number]: Maria Elena Edwards on 12/09/18 3:[address] ATTEMPTED TO CALL RICHARD (SON) BACK ASKED, BUT THERE WAS NOT AN ANSWER. RICHARD # [phone] DCP- Discharge Planning Updated by [id number]: Maria Elena Edwards on 12/09/18 2:[address] [facility] SENT DCP- Discharge Planning Updated by [email or web address]: Maria Elena Edwards on 12/08/18 7:[address] updated clinicals sent to [facility] DCP- Discharge Planning Updated by [id number]: Janine Murphy on 12/07/18 5:[address] PRIMARY NURSE REPORTS THAT THE PATIENT'S CALLED AND SAID ALL THE UTILITIES ARE OFF AND THEY HAVE 3 DAYS TO GET THEIR BELONGINGS OUT. PATIENT IS VERY UPSET WANTING TO LEAVE. HE HAS A RAPID HEART RATE. HE IS IN UNCONTROLLED AFIB. TELEMETRY. STARTED CARDIZEM 30 MGM Q6H ON 12/06. HE ALSO HAS DECREASING H/H. IS ON 4/L NASAL O2. THE NURSE CALLED AND SPOKE WITH THE DAUGHTER. PATIENT'S IS WITH HER. REPORTEDLY THE PATIENT HAS A CHECK. HE MUST GALE TO PAY BILLS. QUESTION OF CIRCUMSTANCE OF HOUSING AND HIS CARE PRIOR TO ADMIT. POSSIBLE APS . REPORTEDLY THE PATIENT HAD BEEN HOME ALONE. WAS UNKEMPT ON ADMISSION. ?? MENTAL HEALTH ISSUES W/ . AMBULANCE CREW MAY HAVE DONE REPORT. WILL NEED TO F/U [employer]'S MAIN OFFICE IN [place] ON SATURDAY. DCP- Discharge Planning Updated by [id number]: Maria Elena Edwards on 12/04/18 3:[address] Patient Name: AMY BRONSON Admission Status: ER Accout number: [id number] Admission Date: 12-02-2018 : 1950 Admission Diagnosis: Attending: DMITRIY CORRAL Current LOS: 2 Anticipated DC Date: Planned Disposition: Custodial Facility Primary Insurance: [employer] MED[employer]ARE ADV Discharge Planning Comments: CM met with patient to assess discharge planning needs. Patient is alert and oriented to person and time. He stated that he can go home and he will be fine. He lives with his Rhoda and has a walker. I explained to him that therapy and nursing did not think he was safe to go home yet and will need to go to rehab, he said he would have help from his neighbor to help him move and he will be fine. Permission to call his . I called Rhoda his and she stated that she can not take care of him at home. He needs more help that she can give, talked to her about skilled facilities she state [facility] in [place] his her first choice I have sent referral to them. IMM also explained. CM will continue to follow and assist with DC planning Diesel Service Apprentice: Maria Elena Edwards DCPIA - Discharge Planning Initial Assessment Updated by [id number]: Maria Elena Edwards on 12/04/18 4:11 pm * Is the patient Alert and Oriented? Yes * PCP [facility] * [facility] * Preadmission Environment Home with Family * ADLs Partial Dependent * Partial ADLs (Assistance needed) Dressing Toileting * Equipment Rolling Walker * List name and contact numbers for known caregivers / representatives who currently or will assist patient after discharge: RHODA () [phone] * Verbal permission to speak to the caregivers and representatives has been obtained from the patient. Yes * Community resources currently utilized None * Additional services required to return to the preadmission environment? Yes * Can the patient safely return to the preadmission environment? No * Has this patient been hospitalized within the prior 30 days at any hospital? No External Providers External Provider: OTHER-OTHER Next Contact Date: Service Request Date: Service Type: Resolution: Reviewer: Comments: [facility] Contact Date: Service Request Date: Service Type: Resolution: Reviewer: Comments: Coverage Notice Reviewer: [id number] - Maria Elena Edwards Notice Issued Date-Time: 12/04/2018 16:00 Notice Type: IM Discharge Notice Notice Delivered To: Patient Relationship to Patient: Spouse Automotive Generator Repairer Name: rhoda Delivery Method: PHONE - Phone Kera Days: Prior Verbal Notification: Yes Recipient Understood Notice: Recipient Signature: Med Rec Note Co-signed by Attending: Coverage Notice Comment: Reviewer: [id number] - Maria Elena Edwards Notice Issued Date-Time: 12/04/2018 16:00 Notice Type: Patient Choice Letter Notice Delivered To: Family Member Relationship to Patient: Spouse Automotive Generator Repairer Name: Rhoda Delivery Method: PHONE - Phone Kera Days: Prior Verbal Notification: Yes Recipient Understood Notice: Recipient Signature: Med Rec Note Co-signed by Attending: Coverage Notice Comment: Last DP export: 12/17/18 12:56 pm Patient Name: AMY BRONSON Page [id number] Electronically Signed by [facility] OKLAHOMA CITYJose Armando on 12/17/18 at 1404 All edits/amendments must be made on the electronic document DICTATION DATE: 12/17/18 1403 MARKETING SYSTEMS ANALYST: LEWIS 12/17/18 1403 RPT#: [id number] DC DATE: STATUS: ADM IN [facility] [address] [place] [address] END OF REPORT
--- NOTE | 2018-12-17 14:11 | MORECARE ---
CASE MANAGEMENT DISCHARGE SUMMARY PATIENT: AMY BRONSON JR UNIT: [id number] ADM DATE: 12/02/18 AGE: 68 : [birth year] SEX: M ROOM/BED: D.2305 AUTHOR: GRAZYNA,DOC PHYSICIAN: REFERRING PHYSICIAN: DMITRIY CORRAL MD DATE OF SERVICE: 12/17/18 Discharge Plan Patient Name: AMY BRONSON Facility: [facility]:[place] : 1950 Planned Disposition: Penitentiary Facility Anticipated Discharge Date: Discharge Date: Expected LOS: Initial Reviewer: [id number] Initial Review Date: 12/02/2018 Generated: 12/17/18 3:10 pm Comments DCP- Discharge Planning Updated by [id number]: Mickie Roach on 12/17/18 1:[address] CM received a call from [facility] that they have an active case on this patient and are requesting records. Vicky from [facility] [phone] fax [phone]. CM did inform Vicky that the current plan for patient upon discharge was [facility] in [place]. CM will continue to follow and assist as needed with discharge planning / needs. DCP- Discharge Planning Updated by [email or web address]: Mickie Roach on 12/17/18 12:[address] CM spoke with [facility] this am and faxed updated records. CM will continue to update Alba on patient status. CM will continue to follow and assist as needed with discharge planning / needs. DCP- Discharge Planning Updated by [email or web address]: Mickie Roach on 12/16/18 4:[address] CM attempted to call [facility] to give update on patient. Alba wasn't available left message to call CM back. DCP- Discharge Planning Updated by [id number]: Maria Elena Edwards on 12/11/18 12:[address] Patient was transferred to ICU, Updated Alba on this she will follow up with [facility] the ICU CM DCP- Discharge Planning Updated by [id number]: Maria Elena Edwards on 12/11/18 11:[address] spoke with [facility] they are waiting on Auth DCP- Discharge Planning Updated by [id number]: Maria Elena Edwards on 12/10/18 6:[address] updated clinical sent to [facility] DCP- Discharge Planning Updated by [email or web address]: Maria Elena Edwards on 12/09/18 3:[address] ATTEMPTED TO CALL RICHARD (SON) BACK ASKED, BUT THERE WAS NOT AN ANSWER. RICHARD # [phone] DCP- Discharge Planning Updated by [id number]: Maria Elena Edwards on 12/09/18 2:[address] [facility] SENT DCP- Discharge Planning Updated by [id number]: Maria Elena Edwards on 12/08/18 7:[address] updated clinicals sent to [facility] DCP- Discharge Planning Updated by [id number]: Janinearnold Murphy on 12/07/18 5:[address] PRIMARY NURSE REPORTS THAT THE PATIENT'S CALLED AND SAID ALL THE UTILITIES ARE OFF AND THEY HAVE 3 DAYS TO GET THEIR BELONGINGS OUT. PATIENT IS VERY UPSET WANTING TO LEAVE. HE HAS A RAPID HEART RATE. HE IS IN UNCONTROLLED AFIB. TELEMETRY. STARTED CARDIZEM 30 MGM Q6H ON 12/06. HE ALSO HAS DECREASING H/H. IS ON 4/L NASAL O2. THE NURSE CALLED AND SPOKE WITH THE DAUGHTER. PATIENT'S IS WITH HER. REPORTEDLY THE PATIENT HAS A CHECK. HE MUST GALE TO PAY BILLS. QUESTION OF CIRCUMSTANCE OF HOUSING AND HIS CARE PRIOR TO ADMIT. POSSIBLE APS . REPORTEDLY THE PATIENT HAD BEEN HOME ALONE. WAS UNKEMPT ON ADMISSION. ?? MENTAL HEALTH ISSUES W/ . AMBULANCE CREW MAY HAVE DONE REPORT. WILL NEED TO F/U [facility]'S MAIN OFFICE IN [place] ON SATURDAY. DCP- Discharge Planning Updated by [id number]: Maria Elena Edwards on 12/04/18 3:[address] Patient Name: AMY BRONSON Admission Status: ER Accout number: [id number] Admission Date: 12-02-2018 : 1950 Admission Diagnosis: Attending: DMITRIY CORRAL Current LOS: 2 Anticipated DC Date: Planned Disposition: Penitentiary Facility Primary Insurance: [employer] ADV Discharge Planning Comments: CM met with patient to assess discharge planning needs. Patient is alert and oriented to person and time. He stated that he can go home and he will be fine. He lives with his Rhoda and has a walker. I explained to him that therapy and nursing did not think he was safe to go home yet and will need to go to rehab, he said he would have help from his neighbor to help him move and he will be fine. Permission to call his . I called Rhoda his and she stated that she can not take care of him at home. He needs more help that she can give, talked to her about skilled facilities she state [facility] in [place] his her first choice I have sent referral to them. IMM also explained. CM will continue to follow and assist with DC planning Sports Medicine Specialist: Maria Elena Edwards DCPIA - Discharge Planning Initial Assessment Updated by [id number]: Maria Elena Edwards on 12/04/18 4:11 pm * Is the patient Alert and Oriented? Yes * PCP [facility] * [facility] * Preadmission Environment Home with Family * ADLs Partial Dependent * Partial ADLs (Assistance needed) Dressing Toileting * Equipment Rolling Walker * List name and contact numbers for known caregivers / representatives who currently or will assist patient after discharge: RHODA () [phone] * Verbal permission to speak to the caregivers and representatives has been obtained from the patient. Yes * Community resources currently utilized None * Additional services required to return to the preadmission environment? Yes * Can the patient safely return to the preadmission environment? No * Has this patient been hospitalized within the prior 30 days at any hospital? No Coverage Notice Reviewer: [id number] Merna Edwards Notice Issued Date-Time: 12/04/2018 16:00 Notice Type: IM Discharge Notice Notice Delivered To: Patient Relationship to Patient: Spouse Laborer Yard Name: rhoda Delivery Method: PHONE - Phone Kera Days: Prior Verbal Notification: Yes Recipient Understood Notice: Recipient Signature: Med Rec Note Co-signed by Attending: Coverage Notice Comment: Reviewer: [id number] Merna Edwards Notice Issued Date-Time: 12/04/2018 16:00 Notice Type: Patient Choice Letter Notice Delivered To: Family Member Relationship to Patient: Spouse Laborer Yard Name: Rhoda Delivery Method: PHONE - Phone Kera Days: Prior Verbal Notification: Yes Recipient Understood Notice: Recipient Signature: Med Rec Note Co-signed by Attending: Coverage Notice Comment: Last DP export: 12/17/18 1:04 pm Patient Name: AMY BRONSON #: [id number] Page 20078 at 1411 All edits/amendments must be made on the electronic document DICTATION DATE: 12/17/181409 MS SQL DBA: LEWIS 12/17/181409 RPT#: [id number] DC DATE: STATUS: ADM IN [facility] [address] [place] [address] END OF REPORT
--- NOTE | 2018-12-17 15:00 | NUR ---
VENT ALARMING, COUGHING, ORAL CARE AND SUCTION OF THICK BROWN SECRETIONS COMPLETED, ASSESSMENT COMPLETED PER FLOWSHEET, VSS, REPOSITIONED TO RIGHT SIDE WITH PILLOW PROPPED TO BACK AND HEELS FLOATE
--- NOTE | 2018-12-17 17:39 | MORECARE ---
CASE MANAGEMENT DISCHARGE SUMMARY PATIENT: AMY BRONSON JR UNIT: [id number] ADM DATE: 12/02/18 AGE: 68 : [birth year] SEX: M ROOM/BED: D.2305 AUTHOR: GRAZYNA,DOC PHYSICIAN: REFERRING PHYSICIAN: DMITRIY CORRAL MD DATE OF SERVICE: 12/17/18 Discharge Plan Patient Name: AMY BRONSON Facility: [facility]:[place] : 1950 Planned Disposition: Alf Facility Anticipated Discharge Date: Discharge Date: Expected LOS: Initial Reviewer: [email or web address] Initial Review Date: 12/02/2018 Generated: 12/17/18 6:38 pm Comments DCP- Discharge Planning Updated by [id number]: Mickie Roach on 12/17/18 4:[address] CM received at call from patient's daughter Sayda [phone] and her . During the discussion it was noted that APS is involved in both the welfare of the patient (social worker palliative care Vicky [phone]) and his Rhoda (social worker palliative care Nanda Gatica [phone]). It was noted that the patient has taken care of all the financial obligations in the house hold prior to admission. He had it set up to where his couldn't access his money / checks. They don't have a checking account and he would gale his checks and pay in gale. Rhoda is trying to gale his social security check at this time. It was noted that she isn't able to take care of herself and that is why APS is involved. Sayda main concern is that since patient is currently on ventilator she is afraid that Rhoda will tell physicians and nursing staff to take him off vent without consulting the rest of the family. Family is awaiting APS to deem Rhoda () incapable of making life altering decisions for patient and herself. Patient is very critical at this time and physician is wanting to setup a family meeting to discuss options regarding possible hospice. CM will get in touch with APS case workers in am to let them know the current situation with patient and to see where the case currently is. CM will continue to follow and assist as needed with discharge planning / needs. DCP- Discharge Planning Updated by [id number]: Mickie Roach on 12/17/18 1:[address] CM received a call from [facility] that they have an active case on this patient and are requesting records. Vicky from [facility] [phone] fax [phone]. CM did inform Vicky that the current plan for patient upon discharge was [facility] in [place]. CM will continue to follow and assist as needed with discharge planning / needs. DCP- Discharge Planning Updated by [id number]: Mickie Roach on 12/17/18 12:[address] CM spoke with Alba @ [employer] this am and faxed updated records. CM will continue to update Alba on patient status. CM will continue to follow and assist as needed with discharge planning / needs. DCP- Discharge Planning Updated by [email or web address]: Mickie Roach on 12/16/18 4:[address] CM attempted to call Alba Verbling to give update on patient. Abla wasn't available left message to call CM back. DCP- Discharge Planning Updated by [id number]: Maria Elena Edwards on 12/11/18 12:[address] Patient was transferred to ICU, Updated Alba on this she will follow up with [facility] the ICU CM DCP- Discharge Planning Updated by [id number]: Maria Elena Edwards on 12/11/18 11:[address] spoke with Alba Vernon [employer] they are waiting on Auth DCP- Discharge Planning Updated by [id number]: Maria Elena Edwards on 12/10/18 6:[address] updated clinical sent to [facility] DCP- Discharge Planning Updated by [id number]: Maria Elena Edwards on 12/09/18 3:[address] ATTEMPTED TO CALL RICHARD (SON) BACK ASKED, BUT THERE WAS NOT AN ANSWER. RICHARD # [phone] DCP- Discharge Planning Updated by [id number]: Maria Elena Edwards on 12/09/18 2:[address] KAYA SENT DCP- Discharge Planning Updated by [id number]: Maria Elena Edwards on 12/08/18 7:[address] updated clinicals sent to [facility] DCP- Discharge Planning Updated by [id number]: Janine Murphy on 12/07/18 5:[address] PRIMARY NURSE REPORTS THAT THE PATIENT'S CALLED AND SAID ALL THE UTILITIES ARE OFF AND THEY HAVE 3 DAYS TO GET THEIR BELONGINGS OUT. PATIENT IS VERY UPSET WANTING TO LEAVE. HE HAS A RAPID HEART RATE. HE IS IN UNCONTROLLED AFIB. TELEMETRY. STARTED CARDIZEM 30 MGM Q6H ON 12/06. HE ALSO HAS DECREASING H/H. IS ON 4/L NASAL O2. THE NURSE CALLED AND SPOKE WITH THE DAUGHTER. PATIENT'S IS WITH HER. REPORTEDLY THE PATIENT HAS A CHECK. HE MUST GALE TO PAY BILLS. QUESTION OF CIRCUMSTANCE OF HOUSING AND HIS CARE PRIOR TO ADMIT. POSSIBLE APS . REPORTEDLY THE PATIENT HAD BEEN HOME ALONE. WAS UNKEMPT ON ADMISSION. ?? MENTAL HEALTH ISSUES W/ . AMBULANCE CREW MAY HAVE DONE REPORT. WILL NEED TO F/U [facility] MAIN OFFICE IN [place] ON SATURDAY. DCP- Discharge Planning Updated by [id number]: Maria Elena Edwards on 12/04/18 3:[address] Patient Name: AMY BRONSON Admission Status: ER Accout number: [id number] Admission Date: 12-02-2018 : 1950 Admission Diagnosis: Attending: DMITRIY CORRAL Current LOS: 2 Anticipated DC Date: Planned Disposition: Alf Facility Primary Insurance: [employer] MEDIC[employer] ADV Discharge Planning Comments: CM met with patient to assess discharge planning needs. Patient is alert and oriented to person and time. He stated that he can go home and he will be fine. He lives with his Rhoda and has a walker. I explained to him that therapy and nursing did not think he was safe to go home yet and will need to go to rehab, he said he would have help from his neighbor to help him move and he will be fine. Permission to call his . I called Rhoda his and she stated that she can not take care of him at home. He needs more help that she can give, talked to her about skilled facilities she state [facility] [place] his her first choice I have sent referral to them. IMM also explained. CM will continue to follow and assist with DC planning Bicycle Assembler: Maria Elena Edwards DCPIA - Discharge Planning Initial Assessment Updated by [id number]: Maria Elena Edwards on 12/04/18 4:11 pm * Is the patient Alert and Oriented? Yes * PCP TUNDE * [facility] * Preadmission Environment Home with Family * ADLs Partial Dependent * Partial ADLs (Assistance needed) Dressing Toileting * Equipment Rolling Walker * List name and contact numbers for known caregivers / representatives who currently or will assist patient after discharge: RHODA () [phone] * Verbal permission to speak to the caregivers and representatives has been obtained from the patient. Yes * Community resources currently utilized None * Additional services required to return to the preadmission environment? Yes * Can the patient safely return to the preadmission environment? No * Has this patient been hospitalized within the prior 30 days at any hospital? No Coverage Notice Reviewer: [id number] Merna Edwards Notice Issued Date-Time: 12/04/2018 16:00 Notice Type: IM Discharge Notice Notice Delivered To: Patient Relationship to Patient: Spouse Charging Crane Operator Name: rhoda Delivery Method: PHONE - Phone Kera Days: Prior Verbal Notification: Yes Recipient Understood Notice: Recipient Signature: Med Rec Note Co-signed by Attending: Coverage Notice Comment: Reviewer: [id number] Edwards Notice Issued Date-Time: 12/04/2018 16:00 Notice Type: Patient Choice Letter Notice Delivered To: Family Member Relationship to Patient: Spouse Charging Crane Operator Name: Rhoda Delivery Method: PHONE - Phone Kera Days: Prior Verbal Notification: Yes Recipient Understood Notice: Recipient Signature: Med Rec Note Co-signed by Attending: Coverage Notice Comment: Last DP export: 12/17/18 1:10 pm Patient Name: AMY BRONSON Page 12563 at 1739 All edits/amendments must be made on the electronic document DICTATION DATE: 12/17/181737 LEASING MACHINE TENDER: LEWIS 12/17/181737 RPT#: [id number] [place] DATE: STATUS: ADM IN [facility] [address] [place] [address] END OF REPORT
--- NOTE | 2018-12-17 17:45 | NUR ---
CALM AND COOPERATIVE, VSS, CONTINUES ON PROPOFAL AND LEVAPHED, AROUSES TO VERBAL STIMULI, FOLLOWS SIMPLE COMMANDS, REPOSITIONED TO BACK WITH HEELS FLOATED
[2018-12-18] VITALS (93 sets, daily range): BP systolic 92–151; BP diastolic 48–81
--- NOTE | 2018-12-18 03:00 | NUR ---
REASSESSMENT COMPLETE WITH NO CHANGES IN PATIENT CONDITION. PATIENT IN VIEW OF NURSES STATION, WILL CONTINUE TO MONITOR.
--- NOTE | 2018-12-18 07:00 | NUR ---
REC'D REPORT AND RESUMED CARE, ETT TO VENTILATION AND SECURED, ORAL CARE AND SUCTION COMPLETED OF DARK RIZZO SECRETIONS, OGT TO LIWS, RIGHT UPPER ARM PICC IN PLACE WITH LEVAPHED, PROPOFAL, AND D51/2NS INFUSING, SEE FLOWSHEET, NGUYEN TO GRAVITY WITH DARK DRAINAGE TO BAG, B/L SCD'S IN PLACE, ASSESSMENT COMPLETE PER FLOWSHEET, VSS, REPOSITIONED TO RIGHT SIDE WITH PILLOW PROPPED TO BACK
[2018-12-18 09:19] LABS: BASOPHILS 0.1 % (0-2); EOSINOPHILS 0.5 % (0-7); HEMOGLOBIN 9.7 g/dL (13.5-17.5); IMMATURE GRANULOCYTES 0.8 % (0-5); LYMPHOCYTES 6.1 % (15-50); MCH 32.1 pg (26.0-34.0); MCHC 31.3 g/dL (31.0-37.0); MEAN PLATELET VOLUME 10.3 fL (7.4-10.4); MONOCYTES 3.8 % (2-11); NEUTROPHILS 88.7 % (40-80); RBC 3.02 10x6/uL (4.20-6.10); RDW 18.3 % (11.5-14.5)
[2018-12-18 09:20] LABS: MCV 102.6 fL (80.0-100.0); PLATELET COUNT 181 10x3/uL (130-400); WBC 19.7 10x3/uL (4.8-10.8)
[2018-12-18 09:28] LABS: ALBUMIN 1.6 g/dL (3.4-5.0); BILIRUBIN - TOTAL 0.62 mg/dL (0.2-1.3); CALCIUM 7.3 mg/dL (8.5-10.1); CARBON DIOXIDE 25.9 mmol/L (21.0-32.0); CREATININE - SERUM 3.9 mg/dL (0.6-1.3); PROTEIN - SERUM 5.2 g/dL (6.4-8.2)
--- NOTE | 2018-12-18 09:30 | NUR ---
[facility]
[2018-12-18 09:31] LABS: ANION GAP 13.5 mmol/L (8-16); POTASSIUM - SERUM 3.4 mmol/L (3.5-5.1)
--- NOTE | 2018-12-18 11:00 | NUR ---
NO ACUTE CHANGE FROM PREVIOUS ASSESSMENT, VSS, ORAL CARE AND SUCTION COMPLETED, REPOSITIONED TO LEFT SIDE WITH PILLOW PROPPED TO BACK
--- NOTE | 2018-12-18 12:28 | NUR ---
OT NOTE: D/C PT AT THIS TIME UNTIL ABLE TO PARTICIPATE. PT REMAINS ON VENT. ERIKA VOSS, OTR/L
--- NOTE | 2018-12-18 14:00 | NUR ---
FAMILY DISCUSSION WITH DR CORRAL, MARC AND BROTHER RE: COMFORT CARE, NO DECISION MADE AT THIS TIME, WILL WAIT ONE FOR BROTHER TO COME FROM [facility] BEFORE MAKING FINAL DECISION, AT 1430 DR LOLA FRAUSTO SPOKE WITH DAUGHTER PAMELA VIA PHONE
--- NOTE | 2018-12-18 15:00 | NUR ---
ASSESSMENT COMPLETED, NO ACUTE CHANGE FROM PREVIOUS, VSS, REPOSITIONED TO BACK WITH HEELS FLOATED,
--- NOTE | 2018-12-18 18:30 | NUR ---
CARDIZEM 30 MG PO GIVEN VIA OGT
--- NOTE | 2018-12-18 19:20 | MORECARE ---
CASE MANAGEMENT DISCHARGE SUMMARY PATIENT: AMY BRONSON JR UNIT: [id number] ADM DATE: 12/02/18 AGE: 68 : 49 SEX: M ROOM/BED: D.2305 AUTHOR: GRAZYNA,DOC PHYSICIAN: REFERRING PHYSICIAN: DMITRIY SANDERS MD DATE OF SERVICE: 12/18/18 Discharge Plan Patient Name: AMY BRONSON Facility: [facility]:[place] : 1950 Planned Disposition: Care Home Facility Anticipated Discharge Date: Discharge Date: Expected LOS: Initial Reviewer: [email or web address] Initial Review Date: 12/02/2018 Generated: 12/18/18 8:20 pm Comments DCP- Discharge Planning Updated by [email or web address]: Mickie Roach on 12/18/18 6:[address] CM spoke with Vicky at [facility] this am regarding patient status. CM explained that the doctor is requesting a family meeting to discuss hospice. Meanwhile the patients brother Neftaly and Rhoda came by for a visit. Dr. Sanders spoke with the family and they stated that they would like to speak to his son Deonte before making any decisions. CM called daughter Sayda to see if they could come up and speak with doctor regarding patients diagnosis. They stated they would come sometime tomorrow to see doctor. CM explained that it would be nice if all the family could meet and hear what the doctor has to say and that way they could come to a decision together. Willie spoke up and said he just didn't want there to be any drama. CM stated at this time the family needed to come together and put their personal differences aside and think of the patients needs. CM will continue to follow and assist as needed with discharge planning / needs. DCP- Discharge Planning Updated by [id number]: Mickie Roach on 12/17/18 4:[address] CM received at call from patient's daughter Sayda [phone] and her . During the discussion it was noted that APS is involved in both the welfare of the patient (matrix worker Vicky [phone]) and his Rhoda (matrix worker Nanda En [phone]). It was noted that the patient has taken care of all the financial obligations in the house hold prior to admission. He had it set up to where his couldn't access his money / checks. They don't have a checking account and he would gale his checks and pay in gale. Rhoda is trying to gale his social security check at this time. It was noted that she isn't able to take care of herself and that is why APS is involved. Sayda main concern is that since patient is currently on ventilator she is afraid that Rhoda will tell physicians and nursing staff to take him off vent without consulting the rest of the family. Family is awaiting APS to deem Rhoda () incapable of making life altering decisions for patient and herself. Patient is very critical at this time and physician is wanting to setup a family meeting to discuss options regarding possible hospice. CM will get in touch with [facility] case workers in am to let them know the current situation with patient and to see where the case currently is. CM will continue to follow and assist as needed with discharge planning / needs. DCP- Discharge Planning Updated by [id number]: Mickie Roach on 12/17/18 1:[address] CM received a call from [facility] that they have an active case on this patient and are requesting records. Vicky from [facility] [phone] fax [phone]. CM did inform Vicky that the current plan for patient upon discharge was [facility] in [place]. CM will continue to follow and assist as needed with discharge planning / needs. DCP- Discharge Planning Updated by [email or web address] Roach on 12/17/18 12:[address] CM spoke with Alba Vernon [employer] this am and faxed updated records. CM will continue to update Alba on patient status. CM will continue to follow and assist as needed with discharge planning / needs. DCP- Discharge Planning Updated by [email or web address]: Mickie Roach on 12/16/18 4:[address] CM attempted to call Alba @ [employer] to give update on patient. Alba wasn't available left message to call CM back. DCP- Discharge Planning Updated by [id number]: Maria Elena Edwards on 12/11/18 12:[address] Patient was transferred to ICU, Updated Alba on this she will follow up with [facility] the ICU CM DCP- Discharge Planning Updated by [id number]: Maria Elena Edwards on 12/11/18 11:[address] spoke with Alba @ [facility] they are waiting on Auth DCP- Discharge Planning Updated by [id number]: Maria Elena Edwards on 12/10/18 6:[address] updated clinical sent to [facility] DCP- Discharge Planning Updated by [email or web address]: Maria Elena Edwards on 12/09/18 3:[address] ATTEMPTED TO CALL RICHARD (SON) BACK ASKED, BUT THERE WAS NOT AN ANSWER. RICHARD # [phone] DCP- Discharge Planning Updated by [id number]: Maria Elena Edwards on 12/09/18 2:[address] KAYA SENT DCP- Discharge Planning Updated by [id number]: Maria Elena Edwards on 12/08/18 7:[address] updated clinicals sent to [facility] DCP- Discharge Planning Updated by [id number]: Janine Murphy on 12/07/18 5:[address] PRIMARY NURSE REPORTS THAT THE PATIENT'S CALLED AND SAID ALL THE UTILITIES ARE OFF AND THEY HAVE 3 DAYS TO GET THEIR BELONGINGS OUT. PATIENT IS VERY UPSET WANTING TO LEAVE. HE HAS A RAPID HEART RATE. HE IS IN UNCONTROLLED AFIB. TELEMETRY. STARTED CARDIZEM 30 MGM Q6H ON 12/06. HE ALSO HAS DECREASING H/H. IS ON 4/L NASAL O2. THE NURSE CALLED AND SPOKE WITH THE DAUGHTER. PATIENT'S IS WITH HER. REPORTEDLY THE PATIENT HAS A CHECK. HE MUST GALE TO PAY BILLS. QUESTION OF CIRCUMSTANCE OF HOUSING AND HIS CARE PRIOR TO ADMIT. POSSIBLE APS . REPORTEDLY THE PATIENT HAD BEEN HOME ALONE. WAS UNKEMPT ON ADMISSION. ?? MENTAL HEALTH ISSUES W/ . AMBULANCE CREW MAY HAVE DONE REPORT. WILL NEED TO F/U [facility]'S MAIN OFFICE IN [place] ON SATURDAY. DCP- Discharge Planning Updated by [email or web address]: Maria Elena Edwards on 12/04/18 3:[address] Patient Name: AMY BRONSON Admission Status: ER Accout number: [id number] Admission Date: 12-02-2018 : 1950 Admission Diagnosis: Attending: DMITRIY SANDERS Current LOS: 2 Anticipated DC Date: Planned Disposition: Care Home Facility Primary Insurance: WE[employer] MEDICARE ADV Discharge Planning Comments: CM met with patient to assess discharge planning needs. Patient is alert and oriented to person and time. He stated that he can go home and he will be fine. He lives with his Rhoda and has a walker. I explained to him that therapy and nursing did not think he was safe to go home yet and will need to go to rehab, he said he would have help from his neighbor to help him move and he will be fine. Permission to call his . I called Rhoda his and she stated that she can not take care of him at home. He needs more help that she can give, talked to her about skilled facilities she state [facility] in [place] his her first choice I have sent referral to them. IMM also explained. CM will continue to follow and assist with DC planning Long Wall Shear Operator: Maria Elena Edwards DCPIA - Discharge Planning Initial Assessment Updated by [id number]: Maria Elena Edwards on 12/04/18 4:11 pm * Is the patient Alert and Oriented? Yes * PCP TUN[facility] * [facility] * Preadmission Environment Home with Family * ADLs Partial Dependent * Partial ADLs (Assistance needed) Dressing Toileting * Equipment Rolling Walker * List name and contact numbers for known caregivers / representatives who currently or will assist patient after discharge: RHODA () [phone] * Verbal permission to speak to the caregivers and representatives has been obtained from the patient. Yes * Community resources currently utilized None * Additional services required to return to the preadmission environment? Yes * Can the patient safely return to the preadmission environment? No * Has this patient been hospitalized within the prior 30 days at any hospital? No Coverage Notice Reviewer: [id number] Merna Edwards Notice Issued Date-Time: 12/04/2018 16:00 Notice Type: IM Discharge Notice Notice Delivered To: Patient Relationship to Patient: Spouse Casino Runner Name: rhoda Delivery Method: PHONE - Phone Kera Days: Prior Verbal Notification: Yes Recipient Understood Notice: Recipient Signature: Med Rec Note Co-signed by Attending: Coverage Notice Comment: Reviewer: [id number] Merna Edwards Notice Issued Date-Time: 12/04/2018 16:00 Notice Type: Patient Choice Letter Notice Delivered To: Family Member Relationship to Patient: Spouse Casino Runner Name: Rhoda Delivery Method: PHONE - Phone Kera Days: Prior Verbal Notification: Yes Recipient Understood Notice: Recipient Signature: Med Rec Note Co-signed by Attending: Coverage Notice Comment: Last DP export: 12/17/18 4:38 pm Patient Name: AMY BRONSON Page 30852 at 1920 All edits/amendments must be made on the electronic document DICTATION DATE: 12/18/181919 DIRECTOR OF COMPENSATION: LEWIS 12/18/181919 RPT#: [id number] DC DATE: STATUS: ADM IN [facility] [address] [place] [address] END OF REPORT
--- NOTE | 2018-12-18 19:51 | NUR ---
PT RECEIVED SEDATED ON VENT. OPENS EYES TO SEDATION. VSS. WILL CONTINUE TO OBSERVE.
--- NOTE | 2018-12-18 21:18 | NUR ---
PT RECEIVED SCHEDULED MEDICATIONS PER MAR VIA OGT. CONTINUES VENT WITH SEDATION. VSS. NO S/S OF DISTRESS. WILL CONTINUE TO OBSERVE.
--- NOTE | 2018-12-18 23:21 | NUR ---
REASSESSMENT COMPLETED, SEE FLOW SHEET. TUBE FEEDING STARTED 20ML/HR AFTER OGT PLACEMENT VARIFIED BY ASPIRATION. VSS. WILL CONTINUE TO OBSERVE
[2018-12-19] VITALS (81 sets, daily range): BP systolic 71–135; BP diastolic 45–86
--- NOTE | 2018-12-19 02:21 | NUR ---
PT CONTINUES VENT WITH SEDATION. VSS. TITRATED LEVO TO 9MCG FROM 10MCG. WILL CONTINUE TO OBSERVE.
--- NOTE | 2018-12-19 03:34 | NUR ---
REASSESSMENT COMPLETED, SEE FLOW SHEET. VSS. WILL CONTINUE TO OBSERVE.
[2018-12-19 06:10] LABS: CALCIUM 7.9 mg/dL (8.5-10.1); CREATININE - SERUM 3.8 mg/dL (0.6-1.3)
[2018-12-19 06:46] LABS: BASOPHILS 0.1 % (0-2); EOSINOPHILS 2.4 % (0-7); HEMATOCRIT 27.8 % (42.0-54.0); HEMOGLOBIN 8.9 g/dL (13.5-17.5); IMMATURE GRANULOCYTES 0.5 % (0-5); MCH 31.4 pg (26.0-34.0); MEAN PLATELET VOLUME 10.5 fL (7.4-10.4); MONOCYTES 4.4 % (2-11); NEUTROPHILS 87.6 % (40-80); RBC 2.83 10x6/uL (4.20-6.10); RDW 17.9 % (11.5-14.5); WBC 14.9 10x3/uL (4.8-10.8)
[2018-12-19 06:48] LABS: MCV 98.2 fL (80.0-100.0); PLATELET COUNT 107 10x3/uL (130-400)
--- NOTE | 2018-12-19 10:33 | NUR ---
Nutrition Follow Up: Pt continues sedated on vent. Spoke with nursing. Chart reviewed. Pt currently on TF of Pulmocare @ 20 ml/hr. I>O BM: 12/17/18 Wt loss noted Labs reviewed Meds noted including Levo, Diprivan @ 8.6 ml/hr providing 227 kcal/d Rec advancing TF 10 ml every 6-8 hours as tolerated to goal rate of 50 ml/hr; H2O flushes [address] following.
--- NOTE | 2018-12-19 11:02 | NUR ---
Nutrition Follow Up: Chart reviewed. Spoke with MD regarding TF change to Suplena r/t elevated BUN, Cr. MD agreed. Spoke with nursing. Pt currently receiving TF of Pulmocare @ 20 ml/hr. I>O BM: 12/17/18 Wt loss noted Labs reviewed - BUN, Cr elevated Meds noted including Levo, Diprivan @ 8.6 ml/hr providing 227 kcal/d Will put order in to start TF of Suplena @ 20 ml/hr. Advance 10 ml every 6-8 hours as tolerated to goal rate of 35 ml/hr. H2O flushes 25 ml/hr. RD following.
[2018-12-19 11:55] LABS: MACROPHAGES BF 1 %; NEUT - BF 96 %
--- NOTE | 2018-12-19 18:00 | MORECARE ---
CASE MANAGEMENT DISCHARGE SUMMARY PATIENT: AMY BRONSON JR UNIT: [id number] ADM DATE: 12/02/18 AGE: 68 : 49 SEX: M ROOM/BED: D.2305 AUTHOR: GRAZYNA,DOC PHYSICIAN: REFERRING PHYSICIAN: DMITRIY SANDERS MD DATE OF SERVICE: 12/19/18 Discharge Plan Patient Name: AMY BRONSON Facility: [facility]:[place] : 1950 Planned Disposition: Detention Facility Anticipated Discharge Date: Discharge Date: Expected LOS: Initial Reviewer: [email or web address] Initial Review Date: 12/02/2018 Generated: 12/19/18 7:00 pm Comments DCP- Discharge Planning Updated by [id number]: Mickie Roach on 12/19/18 4:[address] Family hasn't shown up yet for meeting with to make decision on hospice or terminal extubation. CM will continue to follow and assist as needed with discharge planning / needs. DCP- Discharge Planning Updated by [email or web address]: Mickie Roach on 12/18/18 6:[address] CM spoke with Vicky at [facility] this am regarding patient status. CM explained that the doctor is requesting a family meeting to discuss hospice. Meanwhile the patients brother Neftaly and Rhoda came by for a visit. Dr. Sanders spoke with the family and they stated that they would like to speak to his son Deonte before making any decisions. CM called daughter Sayda to see if they could come up and speak with doctor regarding patients diagnosis. They stated they would come sometime tomorrow to see doctor. CM explained that it would be nice if all the family could meet and hear what the doctor has to say and that way they could come to a decision together. Willie spoke up and said he just didn't want there to be any drama. CM stated at this time the family needed to come together and put their personal differences aside and think of the patients needs. CM will continue to follow and assist as needed with discharge planning / needs. DCP- Discharge Planning Updated by [email or web address]: Mickie Roach on 12/17/18 4:[address] CM received at call from patient's daughter Sayda [phone] and her . During the discussion it was noted that APS is involved in both the welfare of the patient (die out worker Vicky [phone] ext [phone]) and his Rhoda (die out worker Nanda Gatica [phone]). It was noted that the patient has taken care of all the financial obligations in the house hold prior to admission. He had it set up to where his couldn't access his money / checks. They don't have a checking account and he would gale his checks and pay in gale. Rhoda is trying to gale his social security check at this time. It was noted that she isn't able to take care of herself and that is why APS is involved. Sayda main concern is that since patient is currently on ventilator she is afraid that Rhoda will tell physicians and nursing staff to take him off vent without consulting the rest of the family. Family is awaiting APS to deem Rhoda () incapable of making life altering decisions for patient and herself. Patient is very critical at this time and physician is wanting to setup a family meeting to discuss options regarding possible hospice. CM will get in touch with [facility] case workers in am to let them know the current situation with patient and to see where the case currently is. CM will continue to follow and assist as needed with discharge planning / needs. DCP- Discharge Planning Updated by [id number] Roach on 12/17/18 1:[address] CM received a call from [facility] that they have an active case on this patient and are requesting records. Vicky from [facility] [phone] fax [phone]. CM did inform Vicky that the current plan for patient upon discharge was [facility] [place] [facility] [place]. CM will continue to follow and assist as needed with discharge planning / needs. DCP- Discharge Planning Updated by [id number] Roach on 12/17/18 12:[address] CM spoke with Alba @ [facility] this am and faxed updated records. CM will continue to update Alba on patient status. CM will continue to follow and assist as needed with discharge planning / needs. DCP- Discharge Planning Updated by [id number]: Mickie Roach on 12/16/18 4:[address] CM attempted to call Alba @ [facility] to give update on patient. Alba wasn't available left message to call CM back. DCP- Discharge Planning Updated by [id number]: Maria Elena Edwards on 12/11/18 12:[address] Patient was transferred to ICU, Updated Alba on this she will follow up with [facility] the ICU CM DCP- Discharge Planning Updated by [email or web address]: Maria Elena Edwards on 12/11/18 11:[address] spoke with Alba @ [facility] they are waiting on Auth DCP- Discharge Planning Updated by [id number]: Maria Elena Edwards on 12/10/18 6:[address] updated clinical sent to [facility] DCP- Discharge Planning Updated by [id number]: Maria Elena Edwards on 12/09/18 3:[address] ATTEMPTED TO CALL RICHARD (SON) BACK ASKED, BUT THERE WAS NOT AN ANSWER. RICHARD # [phone] DCP- Discharge Planning Updated by [id number]: Maria Elena Edwards on 12/09/18 2:[address] KAYA SENT DCP- Discharge Planning Updated by [id number]: Maria Elena Edwards on 12/08/18 7:[address] updated clinicals sent to [facility] DCP- Discharge Planning Updated by [id number]: Janine Murphy on 12/07/18 5:[address] PRIMARY NURSE REPORTS THAT THE PATIENT'S CALLED AND SAID ALL THE UTILITIES ARE OFF AND THEY HAVE 3 DAYS TO GET THEIR BELONGINGS OUT. PATIENT IS VERY UPSET WANTING TO LEAVE. HE HAS A RAPID HEART RATE. HE IS IN UNCONTROLLED AFIB. TELEMETRY. STARTED CARDIZEM 30 MGM Q6H ON 12/06. HE ALSO HAS DECREASING H/H. IS ON 4/L NASAL O2. THE NURSE CALLED AND SPOKE WITH THE DAUGHTER. PATIENT'S IS WITH HER. REPORTEDLY THE PATIENT HAS A CHECK. HE MUST GALE TO PAY BILLS. QUESTION OF CIRCUMSTANCE OF HOUSING AND HIS CARE PRIOR TO ADMIT. POSSIBLE APS . REPORTEDLY THE PATIENT HAD BEEN HOME ALONE. WAS UNKEMPT ON ADMISSION. ?? MENTAL HEALTH ISSUES W/ . AMBULANCE CREW MAY HAVE DONE REPORT. WILL NEED TO F/U TRADE TO [facility] IN [place] ON SATURDAY. DCP- Discharge Planning Updated by [id number]: Maria Elena Edwards on 12/04/18 3:[address] Patient Name: AMY BRONSON Admission Status: ER Accout number: [id number] Admission Date: 12-02-2018 : 1950 Admission Diagnosis: Attending: DMITRIY SANDERS Current LOS: 2 Anticipated DC Date: Planned Disposition: Detention Facility Primary Insurance: [employer] ADV Discharge Planning Comments: CM met with patient to assess discharge planning needs. Patient is alert and oriented to person and time. He stated that he can go home and he will be fine. He lives with his Rhoda and has a walker. I explained to him that therapy and nursing did not think he was safe to go home yet and will need to go to rehab, he said he would have help from his neighbor to help him move and he will be fine. Permission to call his . I called Rhoda his and she stated that she can not take care of him at home. He needs more help that she can give, talked to her about skilled facilities she state [facility] in [place] his her first choice I have sent referral to them. IMM also explained. CM will continue to follow and assist with DC planning Weld Engineer: Maria Elena Edwards DCPIA - Discharge Planning Initial Assessment Updated by [email or web address]: Maria Elena Edwards on 12/04/18 4:11 pm * Is the patient Alert and Oriented? Yes * PCP [facility] * [facility] * Preadmission Environment Home with Family * ADLs Partial Dependent * Partial ADLs (Assistance needed) Dressing Toileting * Equipment Rolling Walker * List name and contact numbers for known caregivers / representatives who currently or will assist patient after discharge: RHODA () [phone] * Verbal permission to speak to the caregivers and representatives has been obtained from the patient. Yes * Community resources currently utilized None * Additional services required to return to the preadmission environment? Yes * Can the patient safely return to the preadmission environment? No * Has this patient been hospitalized within the prior 30 days at any hospital? No Coverage Notice Reviewer: [id number] - Maria Elena Edwards Notice Issued Date-Time: 12/04/2018 16:00 Notice Type: IM Discharge Notice Notice Delivered To: Patient Relationship to Patient: Spouse Supervisor Landscape Name: rhoda Delivery Method: PHONE - Phone Kera Days: Prior Verbal Notification: Yes Recipient Understood Notice: Recipient Signature: Med Rec Note Co-signed by Attending: Coverage Notice Comment: Reviewer: [id number] - Maria Elena Edwards Notice Issued Date-Time: 12/04/2018 16:00 Notice Type: Patient Choice Letter Notice Delivered To: Family Member Relationship to Patient: Spouse Supervisor Landscape Name: Rhoda Delivery Method: PHONE - Phone Kera Days: Prior Verbal Notification: Yes Recipient Understood Notice: Recipient Signature: Med Rec Note Co-signed by Attending: Coverage Notice Comment: Last DP export: 12/18/18 6:20 pm Patient Name: AMY BRONSON Page [id number] at 1800 All edits/amendments must be made on the electronic document DICTATION DATE: 12/19/181758 CITY COLLECTOR: LEWIS 12/19/181758 RPT#: [id number] DC DATE: STATUS: ADM IN [facility] [address] [place] [address] END OF REPORT
[2018-12-19 18:23] LABS: ANION GAP 12.2 mmol/L (8-16); CALCIUM 7.8 mg/dL (8.5-10.1); CARBON DIOXIDE 25.9 mmol/L (21.0-32.0); CREATININE - SERUM 3.6 mg/dL (0.6-1.3); POTASSIUM - SERUM 3.1 mmol/L (3.5-5.1)
--- NOTE | 2018-12-19 18:49 | NUR ---
0700 SEDATED AND AWAKE ASSESSMENT COMPLETE
--- NOTE | 2018-12-19 18:49 | NUR ---
0900 ORAL CARE COMPLETE REPOSITIONED IN BED
--- NOTE | 2018-12-19 18:50 | NUR ---
1100 NO CHANGES ON VENT SETTINGS AFTER DR HUERTAS MADE HIS ROUND
--- NOTE | 2018-12-19 18:52 | NUR ---
1300 REPOSITIONED IN BED OENS EYES WHILE SEDATED JAUNDICED
--- NOTE | 2018-12-19 18:53 | NUR ---
1500 CHANGED TF TO SUPLENA PER NEW ORDER
--- NOTE | 2018-12-19 18:54 | NUR ---
1700 DTR PAMELA AT BEDSIDE EMOTIONAL SUPPORT
--- NOTE | 2018-12-19 19:30 | NUR ---
SHIFT ASSESSMENT COMPLETE, PER NURSING FLOWSHEET. PATIENT REPOSITIONED, ORAL CARE PROVIDED, CONTINUE POC
--- NOTE | 2018-12-19 21:00 | NUR ---
PATIENT REPOSITIONED. RECEIVED PHONE CALL FROM DAUGHTER, REQUESTING TO GET UPDATE, DAUGHTER COULD NOT PROVIDE PASSWORD INFORMATION. DAUGHTER STATED "I WANT HIM TESTED FOR POISON, BECAUSE HE WAS FINE UP UNTIL ABOUT 3 WEEKS AGO, NOW HE JUST AIN'T DOIN NO GOOD AT ALL". THIS NURSE ASKED DAUGHTER IF THERE WAS A SPECIFIC REASON OR TYPE OF POISON THAT SHE WAS IN PARTICULARY SUSPICIOUS OF, DAUGHTER COULD NOT ANSWER EITHER QUESTION. DAUGHTER DID FOLLOW UP WITH "I JUST WANT HIM TESTED FOR ALL OF THEM". EXPLAINED TO DAUGHTER THAT "I" COULD NOT ORDER SUCH LABORATORY TESTS, IT IS NOT WITHIN A NURSE'S SCOPE OF PRACTICE, BUT THAT I WOULD PASS HER CONCERNS ALONG IN REPORT TO THE DAYSDEFT NURSE TO ADDRESS WITH THE M.D. AND THAT IT WOULD BE AT THE M.D'S DISCRETION TO WHETHER TO ORDER AFORE MENTIOINED TESTS.
--- NOTE | 2018-12-19 23:00 | NUR ---
RE-ASSESSMENT COMPLETE, PER NURSING FLOWSHEET, PATIENT REPOSITIONED, ORAL CARE PROVIDED, CONTINUOUSLY MONITORING, C/L IN REACH
[2018-12-20] VITALS (87 sets, daily range): BP systolic 80–140; BP diastolic 43–71
--- NOTE | 2018-12-20 01:00 | NUR ---
PATIENT REPOSITIONED, NGUYEN CARE PROVIDED, PATIENT CONTINUES IN BUE WRIST RESTRAINTS, CONTINUE POC
--- NOTE | 2018-12-20 03:00 | NUR ---
RE-ASSESSMENT COMPLETE, PER NURSING FLOWSHEET, PATIENT REPOSITIONED, ORAL CARE PROVIDED, WILL CONTINUE TO MONITOR
--- NOTE | 2018-12-20 05:00 | NUR ---
HIBICLENS BATH PROVIDED, COMPLETE LINEN CHANGE FOR INCONTINENT EPISODE OF STOOL, HILDA CARE PROVIDED, PATIENT REPOSITIONED, CONTINUE POC
[2018-12-20 07:48] LABS: BASOPHILS 0.1 % (0-2); EOSINOPHILS 1.1 % (0-7); HEMATOCRIT 27.9 % (42.0-54.0); IMMATURE GRANULOCYTES 1.1 % (0-5); LYMPHOCYTES 4.6 % (15-50); MCH 31.6 pg (26.0-34.0); MCHC 32.3 g/dL (31.0-37.0); MCV 97.9 fL (80.0-100.0); MEAN PLATELET VOLUME 11.1 fL (7.4-10.4); MONOCYTES 6.2 % (2-11); NEUTROPHILS 86.9 % (40-80); PLATELET COUNT 99 10x3/uL (130-400); RBC 2.85 10x6/uL (4.20-6.10); WBC 16.6 10x3/uL (4.8-10.8)
[2018-12-20 08:04] LABS: ALBUMIN 1.6 g/dL (3.4-5.0); ANION GAP 14.9 mmol/L (8-16); BILIRUBIN - TOTAL 1.35 mg/dL (0.2-1.3); CALCIUM 7.8 mg/dL (8.5-10.1); CARBON DIOXIDE 23.2 mmol/L (21.0-32.0); CREATININE - SERUM 3.7 mg/dL (0.6-1.3); POTASSIUM - SERUM 3.1 mmol/L (3.5-5.1); PROTEIN - SERUM 5.9 g/dL (6.4-8.2)
--- NOTE | 2018-12-20 08:28 | NUR ---
ON VENT AT THIS TIME. NO ACUTE DISTRESS NOTED. PT OPENS EYES SPONTANEOUSLY, FOLLOWS COMMANDS AND ANSWERS YES AND NO QUESTIONS. ORAL CARE PROVIDED Q2H TURNED Q2H. WILL CONTINUE PLAN OF CARE.
--- NOTE | 2018-12-20 10:21 | NUR ---
NO ACUTE DISTRESS NOTED. NO CHANGE. PT ON VENT WITH EYES CLOSED, OPENS EYES WHEN SPOKEN TO. TURNED Q2H. ORAL CARE PROVIDED Q2H. WILL CONTINUE PLAN OF CARE.
--- NOTE | 2018-12-20 10:27 | NUR ---
PER MICRO, PT TO BE PLACED ON PRECAUTIONARY DROPLET ISOLATION TO RULE OUT MRSA SPUTUM, ALSO NOTED PT IS GROWING GRAM NEGATIVE RODS AND STAPH. TAILINGS MAN FOR RENAL ROUNDING ON PT AT THIS TIME, NOTIFIED. WILL CONTINUE PLAN OF CARE.
--- NOTE | 2018-12-20 12:13 | NUR ---
PT LYING IN BED ON VENT WITH EYES CLOSED AT THIS TIME. PT NOTED TO RAISE EYEBROWS AND SLIGHTLY OPEN EYES TO VOICE AND WHEN SHOULDER TOUCHED. NOT CURRENTLY FOLLOWING COMMANDS. PT TURNED Q2H. ORAL CARE PROVIDED Q2H. OGT PLACEMENT VERIFIED VIA AUSCULTATION AND ASPIRATION; [address] CORRAL AND ONCOLOGY NOTIFIED OF SPUTUM CULTURES. WILL CONTINUE PLAN OF CARE.
--- NOTE | 2018-12-20 13:15 | NUR ---
SPOKE WITH PTS BROTHER GOOD WHO STATED HE IS TRYING TO HAVE A FAMILY MEETING EITHER TODAY OR SATURDAY OR SATURDAY TO DECIDE A PLAN OF CARE. CASE MANAGEMENT NOTFIED SINCE PT IS A ADULT PROTECTIVE SERVICES PATIENT AND STATED THAT APS IS THE ONLY ONES WHO CAN MAKE A DECISION REGARDING PATIENT STATUS, BUT THE FMAILY CAN MAKE REQUESTS. PHYSICIAN IS AWARE WELL FAMILY IS AWARE OF THIS. GOOD STATES HE WILL NOTIFY NURSE WHEN THEY DECIDE ON WHAT TIME THEY (THE FAMILY) CAN MAKE IT HERE. WILL CONTINUE PLAN OF CARE.
--- NOTE | 2018-12-20 13:24 | NUR ---
CHANGE NOTED IN NEURO STATUS; PT NOW ONLY RAISING EYEBROWS AND PARTLY OPENING EYES TO DEEP STIMULATION WITH SOME EYEBROW FURROWING. PT NOT FOLLOWING COMMANDS. ALSO NOTED GUPPY BREATHING. DR CORRAL ON UNIT, WILL NOTIFY.
--- NOTE | 2018-12-20 14:44 | NUR ---
PER COMPRESSED GAS EQUIPMENT MECHANIC, TITRATE SEDATION OFF TO SEE IF PT WAKES UP. DIPROVAN TITRATED DOWN AT THIS TIME. WILL CONTINUE PLAN OF CARE.
--- NOTE | 2018-12-20 16:59 | NUR ---
NOTED PROPOFOL HAS BEEN OFF FOR OVER AN HOUR HOW AND NO CHANGE IN NEURO STATUS; PT OPENS EYES AND FROWNS TO DISCOMFORT. DOES NOT FOLLOW COMMANDS. DR HUERTAS UPDATED, ABG ORDERED. VSS. WILL CONTINUE PLAN OF CARE.
--- NOTE | 2018-12-20 17:50 | NUR ---
DR HUERTAS UPDATED ON ABG, ORDERED STAT CT HEAD WITHOUT CONTRAST NOW AND TO NOT RESTART PROPOFOL YET.
--- NOTE | 2018-12-20 18:12 | NUR ---
WAITING TO DO STAT CT HEAD FOR WHEN RESPIRATORY THERAPY IS READY TO ASSIST.
--- NOTE | 2018-12-20 19:05 | NUR ---
LEFT AND RETURNED FROM CT AT THIS TIME VIA BED ACCOMPANIED BY RADIOLOGY, NURSING STAFF, AND RESPIRATORY THERAPY, MONITORING EQUIPMENT, IV EQUIPMENT. VSS. PT RETURNED STABLE. STLL NOTED TO HAVE GUPPY BREATHING AND NOT FOLLOWING COMMANDS, OPENS EYES ONLY. WILL CONTINUE PLAN OF CARE.
--- NOTE | 2018-12-20 19:30 | NUR ---
SHIFT ASSESSMENT COMPLETE, PER NURSING FLOWSHEET, PATIENT REPOSITIONED, ORAL CARE PROVIDED. RESTRAINTS REMOVED AT THIS TIME SECONDARY TO THIS PATIENT'S LETHARGIC AFFECT, WILL CONTINUE TO CLOSELY MONITOR
--- NOTE | 2018-12-20 21:00 | NUR ---
PATIENT REPOSITIONED, ORAL CARE PROVIDED, PATIENT REMAINS LETHARGIC WITH FLAT AFFECT, ONLY MOVEMENTS NOTED AT THIS TIME ARE REFLEXIVE, PATIENT CONTINUES OUT OF RESTRAINTS, WILL CONTINUE TO MONITOR
[2018-12-20 21:05] LABS: AFB SPECIMEN PROCESSING Concentration (())
--- NOTE | 2018-12-20 23:00 | NUR ---
RE-ASSESSMENT COMPLETE, PER NURSING FLOWSHEET. PATIENT REPOSITIONED, ORAL CARE PROVIDED, PATIENT CONTINUES TO BE LETHARGIC, VSS, CONTINUE POC
[2018-12-21] VITALS (101 sets, daily range): BP systolic 79–137; BP diastolic 38–92
--- NOTE | 2018-12-21 01:00 | NUR ---
PATIENT REPOSITIONED, INCONTINENCE CHECK, PATIENT REMAINS C/D AT THIS TIME. NGUYEN CARE PROVIDED, VSS
--- NOTE | 2018-12-21 03:00 | NUR ---
RE-ASSESSMENT COMPLETE. PATIENT REPOSITIONED, IS NOW SPONTANEOUSLY OPENING EYES AND ATTEMPTING TO FOLLOW COMMANDS. PATIENT IS ALSO TRACKING MOVEMENT IN ROOM WITH HIS EYES. MINIMAL SPONTANEOUS MOVEMENT NOTED TO LUE, WILL CONTINUE TO MONITOR
--- NOTE | 2018-12-21 05:00 | NUR ---
PATIENT REPOSITIONED, ORAL CARE PROVIDED, PATIENT RESPONSIVENESS IS MARKEDLY IMPROVED, SPONTANEOUSLY OPENS EYES, CONTINUING TO ATTEMPT TO FOLLOW COMMANDS, CONTINUE POC
[2018-12-21 06:30] LABS: ALBUMIN 1.7 g/dL (3.4-5.0); ANION GAP 14.5 mmol/L (8-16); BILIRUBIN - TOTAL 1.8 mg/dL (0.2-1.3); CALCIUM 7.7 mg/dL (8.5-10.1); CARBON DIOXIDE 22.9 mmol/L (21.0-32.0); CREATININE - SERUM 4.2 mg/dL (0.6-1.3); PHOSPHOROUS 4.6 mg/dL (2.5-4.9); POTASSIUM - SERUM 3.4 mmol/L (3.5-5.1)
[2018-12-21 06:32] LABS: HEMATOCRIT 26.4 % (42.0-54.0); HEMOGLOBIN 8.5 g/dL (13.5-17.5); MCH 31.3 pg (26.0-34.0); MCHC 32.2 g/dL (31.0-37.0); MCV 97.1 fL (80.0-100.0); MEAN PLATELET VOLUME 10.7 fL (7.4-10.4); PLATELET COUNT 96 10x3/uL (130-400); RBC 2.72 10x6/uL (4.20-6.10); RDW 17.7 % (11.5-14.5); WBC 13.6 10x3/uL (4.8-10.8)
[2018-12-21 07:25] LABS: LYMPHOCYTES 8 % (15-50); MONOCYTES 7 % (2-11); NEUTROPHILS 70 % (40-80)
[2018-12-21 07:26] LABS: ANISOCYTOSIS 3+; HYPOCHROMASIA 2+; PLATELET ESTIMATE DECREASED; POLYCHROMASIA 2+
--- NOTE | 2018-12-21 07:36 | NUR ---
LYING IN BED ON VENT AT THIS TIME WITH EYES OPEN. PT ABLE TO FOLLOW COMMANDS AND NOD HEAD TO YES AND NO QUESTIONS. NO ACUTE DISTRESS NOTED. VSS. ORAL CARE AND REPOSITIONING PROVIDED Q2H. WILL CONTINUE PLAN OF CARE.
--- NOTE | 2018-12-21 09:37 | NUR ---
5ML RESIDUAL NOTED TO OGT. PLACEMENT VERIFIED VIA AUSCULTATION AND ASPIRATION. NO ACUTE DISTRESS NOTED. WILL CONTINUE PLAN OF CARE.
--- NOTE | 2018-12-21 11:36 | NUR ---
SPOKE WITH PTS DAUGHTER, PAMELA, WHO DID NOT HAVE THE CURRENT CALL IN CODE. SHE STATED THAT THE PATIENT'S MUST HAVE CHANGED THE CALL IN CODE. SHE STATED SHE WANTED TO TRY TO CHANGE THE CALL IN CODE SO THAT THE PATIENT'S WILL NOT KNOW THE CODE. NOTIFIED PTS DAUGHTER THAT WE ARE UNABLE TO DO THAT. SHE CONTINUED TO STATE THAT THE PATIENT'S IS CONFUSED. NOTIFIED PTS DAUGHTER TO CONTACT APS FOR FURTHER ASSISTANCE.
--- NOTE | 2018-12-21 11:57 | NUR ---
ORAL CARE PROVIDED IS PROVIDED Q2H. NOTED LOTS OF THIN RIZZO COLORED SECRETIONS FROM ORAL SUCTIONING. ALSO NOTED SMALL AMOUNT SIMULAR SECRETIONS SEEN WHEN SUCTIONED INLINE. NO ACUTE DISTRESS NOTED. VSS. LEVOPHED TITRATED TO ORDER. PT EYES OPEN, FOLLOWS COMMANDS, NODS/SHAKES HEAD TO YES/NO. WILL CONTINUE PLAN OF CARE.
--- NOTE | 2018-12-21 13:17 | NUR ---
NO ACUTE DISTRESS NOTED. NO CHANGE. PT TURNED Q2H. ORAL CARE PROVIDED Q2H. VSS. LEVOPHED TITRATED TO ORDER, SEE IV FLOWSHEET. WILL CONTINUE PLAN OF CAR.E
--- NOTE | 2018-12-21 15:54 | NUR ---
BED BATH PROVIDED AT THIS TIME WITH TOTAL LINEN CHANGE. HILDA CARE PROVIDED. HIPICLENS USED. ORAL CARE ALSO PROVIDED. PT TURNED Q2H. NO ACUTE DISTRESS NOTED. WILL CONTINUE PLAN OF CARE.
--- NOTE | 2018-12-21 19:00 | NUR ---
SHIFT ASSESSMENT COMPLETE. PT IS ALERT AND IS ABLE TO FOLLOW COMMANDS. ETT/OGT SECURED. VENT SETTINGS, A/C RATE OF 22, TIDAL VOLUME 500, FIO2 40%, PEEP 5.0. ETT SIZE 7.5 MEASURING 25 CM MIDLINE LIP, POOR DENTITION NOTED. S1S2 AUDIBLE, HR 71 NSR SHOWING ON MONITOR. JOHNNYMAO HEARD BILAT THROUGHOUT ALL LOBES, SUCTIONED VIA INLINE, RIZZO SECRETIONS. ABD FLAT, BS ACTIVE X4. SUPLENA TF INFUSING @ 35 ML/HR WITH A 25 ML FLUSH Q2H, OGT PLACEMENT CHECKED WITH AUSCULTATION, 0 RESIDUAL. NGUYEN CATH INTACT DRAINING SHANT URINE. R UPPER ARM PICC INFUSING LEVOPHED @ 2 MCG/MIN, INCREASED TO 3 MCG/MIN DUE TO BP 90/38 MAP 55. WILL CONT TO TITRATE TO MAINTAIN MAP > 65. STAGE III PRESSURE ULCER NOTED ON COCCYX, DRESSING CDI. L UPPER BACK DRESSING CDI, R HIP DRESSING CDI, L ELBOW BRUISING AND SCABS NOTED. SKIN IS THIN/TRANSPARENT. +1 PITTING EDEMA UPPER EXT, ELEVATED ON PILLOWS. REDNESS NOTED IN R EYE, BOTH EYES ARE EDEMATOUS AND HAVE A YELLOW SCLERA. DROPLET PRECAUTIONS IN PLACE. REPOSITIONED FOR COMFORT, ORAL CARE PROVIDED. R UPPER PICC ALSO INFUSING D5 @ 75 ML/HR. SWAB CAPPED, LABELED. LT WRIST RESTRAINT IN PLACE, SKIN CDI. CALL LIGHT IN REACH, BED IN LOWEST POSITION, BRIDGED HEELS. TIGHT PARAMETERS SET ON ICU MONITORS. ALL NEEDS MET, WILL CONT WITH POC.
--- NOTE | 2018-12-21 21:00 | NUR ---
NO FAMILY AT VISITATION. VSS. CONT TO TITRATE LEVOPHED GTT NEEDED. REPOSITIONED FOR COMFORT. ORAL CARE PROVIDED. WILL CONT WITH POC.
--- NOTE | 2018-12-21 23:00 | NUR ---
REASSESSMENT COMPLETE. PT SHAKES HEAD "NO" WHEN ASKED IF HE IS IN ANY PAIN OR DISCOMFORT. SEE REASSESSMENT FLOWSHEET FOR FURTHER DETAILS. VSS. CALL LIGHT IN REACH. WILL CONT WITH POC.
[2018-12-22] VITALS (89 sets, daily range): BP systolic 87–136; BP diastolic 40–69
--- NOTE | 2018-12-22 01:00 | NUR ---
ORAL CARE PROVIDED VIA RT. REPOSITIONED FOR COMFORT. NO NEEDS AT THIS TIME.
--- NOTE | 2018-12-22 03:00 | NUR ---
REASSESSMENT COMPLETE. NO CHANGES IN PT CONDITION. SEE FLOWSHEET FOR FURTHER DETIALS. VSS. WILL CONT WITH POC.
[2018-12-22 04:52] LABS: BASOPHILS 0.1 % (0-2); EOSINOPHILS 0.8 % (0-7); HEMATOCRIT 24.8 % (42.0-54.0); HEMOGLOBIN 8.2 g/dL (13.5-17.5); IMMATURE GRANULOCYTES 2.3 % (0-5); LYMPHOCYTES 8.8 % (15-50); MCH 31.7 pg (26.0-34.0); MCHC 33.1 g/dL (31.0-37.0); MCV 95.8 fL (80.0-100.0); MEAN PLATELET VOLUME 10.7 fL (7.4-10.4); PLATELET COUNT 82 10x3/uL (130-400); RBC 2.59 10x6/uL (4.20-6.10); RDW 17.5 % (11.5-14.5); WBC 8.6 10x3/uL (4.8-10.8)
--- NOTE | 2018-12-22 05:00 | NUR ---
REPOSITIONED FOR COMFORT. VSS. PT REMAINS ON LEVOPHED, MAP > 65. CALL LIGHT IN REACH, BED IN LOWEST POSITION. WILL CONT WITH POC.
[2018-12-22 05:01] LABS: ALBUMIN 1.8 g/dL (3.4-5.0); ANION GAP 11.3 mmol/L (8-16); BILIRUBIN - TOTAL 1.7 mg/dL (0.2-1.3); CALCIUM 7.9 mg/dL (8.5-10.1); CARBON DIOXIDE 23.4 mmol/L (21.0-32.0); CREATININE - SERUM 4.3 mg/dL (0.6-1.3); POTASSIUM - SERUM 3.7 mmol/L (3.5-5.1)
--- NOTE | 2018-12-22 07:00 | NUR ---
REC'D RPOET AND RESUMED CARE, AWAKE AND FOLLOWING COMMANDS, ETT TO VENTILATION AND SECURED, FIO2 40%, SAT 96%, OGT WITH SUPLENA TF AT 35 CC/HR, RESIDUAL CHECK 0, RIGHT UPPER AR PICC WITH LEVAPHED, PROPOFAL, AND D5W INFUSING, NGUYEN TO GRAVITY, SKIN ASSESSMENT PER FLOWSHEET, VSS, ASSESSMENT COMPLETED PER FLOWSHEET, NGUYEN TO GRAVITY WITH CONCENTRATED YELLOW, ORAL CARE AND SUCTION COMPLETED, REPOSITIONE TO LEFT SIDE WITH PILLOW TO BACK AND HEELS FLOATED
--- NOTE | 2018-12-22 08:30 | NUR ---
DR REHMAN AT BEDSIDE, D5W DC'D
--- NOTE | 2018-12-22 08:46 | NUR ---
Nutrition follow-up: Suplena @ 35 ml/hr Pt continues on pressors Labs reviewed Wt: 166# Waiting for family re: hospice or pallative care RDN following.
--- NOTE | 2018-12-22 09:00 | NUR ---
MORNING MEDS GIVEN PER OCT FLOWSHEET
--- NOTE | 2018-12-22 11:00 | NUR ---
RESTING WATCHING TV, DENIES PAIN, REPOSTIIONED TO BACK WITH HEELS FLOATED, VSS, NO ACUTE CHANGE FROM PREVIOUS ASSESSMENT
--- NOTE | 2018-12-22 13:30 | NUR ---
PC FROM BROTHER BRYANNA, STATES MANDA RAMOS WILL BE IN LATER TODAY FROM [place]
--- NOTE | 2018-12-22 13:44 | NUR ---
DISCUSSION WITH CASE MANAGEMENT, STATED THAT SHE SPOKE WITH WASH BOX OPERATOR ERIKA AT [facility] STATED THAT OK TO GO AHEAD WITH HOSPICE IF THIS IS WHAT THE FAMILY DESIRES BECAUSE, PATIENT NOT IN [facility] CUSTODY BUT HAS AT [facility] OPEN
--- NOTE | 2018-12-22 14:19 | MORECARE ---
CASE MANAGEMENT DISCHARGE SUMMARY PATIENT: AMY DYER JR UNIT: [id number] ADM DATE: 12/02/18 AGE: 68 : 49 SEX: M ROOM/BED: D.2305 AUTHOR: GRAZYNA,DOC PHYSICIAN: REFERRING PHYSICIAN: DMITRIY SANDERS MD DATE OF SERVICE: 12/22/18 Discharge Plan Patient Name: AMY DYER Facility: [facility]:[place] : 1950 Planned Disposition: Custodial Facility Anticipated Discharge Date: Discharge Date: Expected LOS: Initial Reviewer: [email or web address] Initial Review Date: 12/02/2018 Generated: 12/22/18 3:19 pm Comments DCP- Discharge Planning Updated by [id number]: Mickie Roach on 12/22/18 1:[address] CM called and spoke with Vicky with [employer] (patient's director case management) [phone]. Vicky stated that the patient isn't in APS custody therefore if family and physician agree to Hospice then that will be fine. CM also asked if she could tell me anything about whether patient's is capable of making decisions regarding patients care. Vicky stated that she didn't think that Rhoda had been seen yet that it was a new case. Vicky stated she has attempted twice to see Rhoda at hospital waiting area but she wasn't there either time. Rev. Malik Martinez is here today wanting information regarding Rhoda's director case management. Vicky stated that it would be alright to give him Nanda number [phone]. CM spoke with Rev. Martinez and gave him the number for Nanda APS director case management for Rhoda Dyer. Rhoda is currently staying with her brother -n- law Neftaly. Deonte Dyer (son) is on his way travelling via bus from [place]. Family will most likely make decision regarding Hospice once he arrives. CM will continue to follow and assist as needed with discharge planning / needs DCP- Discharge Planning Updated by [id number]: Mickie Roach on 12/19/18 4:[address] Family hasn't shown up yet for meeting with to make decision on hospice or terminal extubation. CM will continue to follow and assist as needed with discharge planning / needs. DCP- Discharge Planning Updated by [id number]: Mickie Roach on 12/18/18 6:[address] CM spoke with Vicky at [facility] this am regarding patient status. CM explained that the doctor is requesting a family meeting to discuss hospice. Meanwhile the patients brother Neftaly and Rhoda came by for a visit. Dr. Sanders spoke with the family and they stated that they would like to speak to his son Deonte before making any decisions. CM called daughter Sayda to see if they could come up and speak with doctor regarding patients diagnosis. They stated they would come sometime tomorrow to see doctor. CM explained that it would be nice if all the family could meet and hear what the doctor has to say and that way they could come to a decision together. Willie spoke up and said he just didn't want there to be any drama. CM stated at this time the family needed to come together and put their personal differences aside and think of the patients needs. CM will continue to follow and assist as needed with discharge planning / needs. DCP- Discharge Planning Updated by [id number]: Mickie Roach on 12/17/18 4:[address] CM received at call from patient's daughter Sayda [phone] and her . During the discussion it was noted that APS is involved in both the welfare of the patient (metal storage worker Vicky [phone]) and his Rhoda (metal storage worker Nanda Gatica [phone]). It was noted that the patient has taken care of all the financial obligations in the house hold prior to admission. He had it set up to where his couldn't access his money / checks. They don't have a checking account and he would gale his checks and pay in gale. Rhoda is trying to gale his social security check at this time. It was noted that she isn't able to take care of herself and that is why APS is involved. Sayda main concern is that since patient is currently on ventilator she is afraid that Rhoda will tell physicians and nursing staff to take him off vent without consulting the rest of the family. Family is awaiting APS to deem Rhoda () incapable of making life altering decisions for patient and herself. Patient is very critical at this time and physician is wanting to setup a family meeting to discuss options regarding possible hospice. CM will get in touch with [facility] case workers in am to let them know the current situation with patient and to see where the case currently is. CM will continue to follow and assist as needed with discharge planning / needs. DCP- Discharge Planning Updated by [id number]: Mickie Roach on 12/17/18 1:[address] CM received a call from [facility] that they have an active case on this patient and are requesting records. Vicky from [facility] [phone] fax [phone]. CM did inform Vicky that the current plan for patient upon discharge was [facility] in [place]. CM will continue to follow and assist as needed with discharge planning / needs. DCP- Discharge Planning Updated by [id number]: Mickie Roach on 12/17/18 12:[address] CM spoke with [facility]ba [facility] [employer] this am and faxed updated records. CM will continue to update Alba on patient status. CM will continue to follow and assist as needed with discharge planning / needs. DCP- Discharge Planning Updated by [id number]: Mickie Roach on 12/16/18 4:[address] CM attempted to call [facility] [employer] to give update on patient. Alba wasn't available left message to call CM back. DCP- Discharge Planning Updated by [id number]: Maria Eelna Edwards on 12/11/18 12:[address] Patient was transferred to ICU, Updated Alba on this she will follow up with [facility] the ICU CM DCP- Discharge Planning Updated by [id number]: Maria Elena Edwards on 12/11/18 11:[address] spoke with [facility] [employer] they are waiting on Auth DCP- Discharge Planning Updated by [email or web address]: Maria Elena Edwards on 12/10/18 6:[address] updated clinical sent to [facility] DCP- Discharge Planning Updated by [email or web address]: Maria Elena Edwards on 12/09/18 3:[address] ATTEMPTED TO CALL RICHARD (SON) BACK ASKED, BUT THERE WAS NOT AN ANSWER. RICHARD # [phone] DCP- Discharge Planning Updated by [id number]: Maria Elena Gomezken on 12/09/18 2:[address] KAYA SENT DCP- Discharge Planning Updated by [id number]: Maria Elena Edwards on 12/08/18 7:[address] updated clinicals sent to [facility] DCP- Discharge Planning Updated by [id number]: Janine Murphy on 12/07/18 5:[address] PRIMARY NURSE REPORTS THAT THE PATIENT'S CALLED AND SAID ALL THE UTILITIES ARE OFF AND THEY HAVE 3 DAYS TO GET THEIR BELONGINGS OUT. PATIENT IS VERY UPSET WANTING TO LEAVE. HE HAS A RAPID HEART RATE. HE IS IN UNCONTROLLED AFIB. TELEMETRY. STARTED CARDIZEM 30 MGM Q6H ON 12/06. HE ALSO HAS DECREASING H/H. IS ON 4/L NASAL O2. THE NURSE CALLED AND SPOKE WITH THE DAUGHTER. PATIENT'S IS WITH HER. REPORTEDLY THE PATIENT HAS A CHECK. HE MUST AGLE TO PAY BILLS. QUESTION OF CIRCUMSTANCE OF HOUSING AND HIS CARE PRIOR TO ADMIT. POSSIBLE APS . REPORTEDLY THE PATIENT HAD BEEN HOME ALONE. WAS UNKEMPT ON ADMISSION. ?? MENTAL HEALTH ISSUES W/ . AMBULANCE CREW MAY HAVE DONE REPORT. WILL NEED TO F/U [facility] IN [place] ON SATURDAY. DCP- Discharge Planning Updated by [id number]: Maria Elena Edwards on 12/04/18 3:[address] Patient Name: AMY DYER Admission Status: ER Accout number: [id number] Admission Date: 12-02-2018 : 1950 Admission Diagnosis: Attending: DMITRIY SANDERS Current LOS: 2 Anticipated DC Date: Planned Disposition: Custodial Facility Primary Insurance: [employer] ADV Discharge Planning Comments: CM met with patient to assess discharge planning needs. Patient is alert and oriented to person and time. He stated that he can go home and he will be fine. He lives with his Rhoda and has a walker. I explained to him that therapy and nursing did not think he was safe to go home yet and will need to go to rehab, he said he would have help from his neighbor to help him move and he will be fine. Permission to call his . I called Rhoda his and she stated that she can not take care of him at home. He needs more help that she can give, talked to her about skilled facilities she state [facility] in [place] his her first choice I have sent referral to them. IMM also explained. CM will continue to follow and assist with DC planning Senior Applications Developer: Maria Elena Edwards DCPIA - Discharge Planning Initial Assessment Updated by [id number]: Maria Elena Edwards on 12/04/18 4:11 pm * Is the patient Alert and Oriented? Yes * PCP [facility] * [facility] * Preadmission Environment Home with Family * ADLs Partial Dependent * Partial ADLs (Assistance needed) Dressing Toileting * Equipment Rolling Walker * List name and contact numbers for known caregivers / representatives who currently or will assist patient after discharge: RHODA () [phone] * Verbal permission to speak to the caregivers and representatives has been obtained from the patient. Yes * Community resources currently utilized None * Additional services required to return to the preadmission environment? Yes * Can the patient safely return to the preadmission environment? No * Has this patient been hospitalized within the prior 30 days at any hospital? No Coverage Notice Reviewer: [id number] Merna Edwards Notice Issued Date-Time: 12/04/2018 16:00 Notice Type: IM Discharge Notice Notice Delivered To: Patient Relationship to Patient: Spouse Restrike Hammer Operator Name: rhoda Delivery Method: PHONE - Phone Kera Days: Prior Verbal Notification: Yes Recipient Understood Notice: Recipient Signature: Med Rec Note Co-signed by Attending: Coverage Notice Comment: Reviewer: [id number] Merna Edwards Notice Issued Date-Time: 12/04/2018 16:00 Notice Type: Patient Choice Letter Notice Delivered To: Family Member Relationship to Patient: Spouse Restrike Hammer Operator Name: Rhoda Delivery Method: PHONE - Phone Kera Days: Prior Verbal Notification: Yes Recipient Understood Notice: Recipient Signature: Med Rec Note Co-signed by Attending: Coverage Notice Comment: Last DP export: 12/19/18 5:00 p Patient Name: MAY DYER Page [id number] at 1419 All edits/amendments must be made on the electronic document DICTATION DATE: 12/22/181417 COMBAT SYSTEMS OPERATOR: LEWIS 12/22/181417 RPT#: [id number] DC DATE: STATUS: ADM IN [facility] [address] [place] [address] END OF REPORT
--- NOTE | 2018-12-22 15:00 | NUR ---
ASSESSMENT COMPLETE PER FLOWSHEET, VSS, ORAL CARE AND SUCTION COMPLETED, NO ACUTE SIGN OF DISTRESS
--- NOTE | 2018-12-22 19:20 | NUR ---
REC'D TO CARE, GRAPHICS PRODUCTION SPECIALIST PER FLOWSHEET. PT ON MECH VENT VIA OETT - SEE FLOWSHEET. IVFS INFUSING TO R UPPER ARM PICC, DSG C/D/I - SEE FLOWSHEET.NGUYEN CATH PATENT. SKIN ASSESSMENT PER FLOWSHEET.. PT LIGHTLY SEDATED, NO SIGN OF DISTRESS. WILL TITRATE IV GTTS PER MD ORDER - SEE FLOWSHEET.
--- NOTE | 2018-12-22 21:00 | NUR ---
NO VISITORS. VSS. NO SIGN OF DISTRESS. CONT Q2H TURN AND ORAL CARE.
--- NOTE | 2018-12-22 23:15 | NUR ---
PT IN CONT OF LARGE, LOOSE BROWN STOOL. HILDA-CARE AND NGUYEN CARE DONE... PADS CHANGED.
[2018-12-23] VITALS (91 sets, daily range): BP systolic 76–150; BP diastolic 42–66
--- NOTE | 2018-12-23 01:00 | NUR ---
RT AT BS FOR RESP TX, ORAL CARE DONE AND PT REPOSITIONED FOR COMFORT.
--- NOTE | 2018-12-23 03:00 | NUR ---
REASSESSMENT PER FLOWSHEET, NO ACUTE CHANGES. VSS. NO SIGN OF DISTRESS.
[2018-12-23 05:08] LABS: BASOPHILS 0.1 % (0-2); EOSINOPHILS 1.1 % (0-7); HEMATOCRIT 23.6 % (42.0-54.0); HEMOGLOBIN 7.8 g/dL (13.5-17.5); IMMATURE GRANULOCYTES 1.3 % (0-5); LYMPHOCYTES 6.3 % (15-50); MCH 31.6 pg (26.0-34.0); MCHC 33.1 g/dL (31.0-37.0); MCV 95.5 fL (80.0-100.0); MEAN PLATELET VOLUME 11.3 fL (7.4-10.4); MONOCYTES 4.2 % (2-11); PLATELET COUNT 90 10x3/uL (130-400); RBC 2.47 10x6/uL (4.20-6.10); RDW 17.5 % (11.5-14.5)
[2018-12-23 05:11] LABS: WBC 11.2 10x3/uL (4.8-10.8)
[2018-12-23 05:56] LABS: ALBUMIN 1.9 g/dL (3.4-5.0); ANION GAP 15.2 mmol/L (8-16); BILIRUBIN - TOTAL 1.65 mg/dL (0.2-1.3); CALCIUM 7.7 mg/dL (8.5-10.1); CARBON DIOXIDE 20.8 mmol/L (21.0-32.0); CREATININE - SERUM 4.8 mg/dL (0.6-1.3); MAGNESIUM - SERUM 2.2 mg/dL (1.8-2.4); PHOSPHOROUS 5.2 mg/dL (2.5-4.9); PROTEIN - SERUM 5.5 g/dL (6.4-8.2)
--- NOTE | 2018-12-23 06:00 | NUR ---
COMPLETE BATH AND LINEN CHANGE DONE.
--- NOTE | 2018-12-23 07:15 | NUR ---
REPORT RECIEVED, SHIFT ASSESSMENT COMPLETE, PT IS SEDATED ON VENT, FOLLOWS COMMANDS, ON 40% FIO2 WITH 985 O2 SAT. ALL PPP, VSS, WILL CON'T TO MONITOR
[2018-12-23 09:10] LABS: ERYTHROCYTE SEDIMENTATION RATE 47 mm/hr (0-20)
--- NOTE | 2018-12-23 11:00 | NUR ---
REASSESSMENT COMPLETE PER FLOW SHEET. VSS. NO NEW CHANGES PT RESTING COMFORTABLY [facility]
--- NOTE | 2018-12-23 11:30 | NUR ---
DR. VEGA AT BEDSIDE, UPDATE GIVEN TO FAMILY,
--- NOTE | 2018-12-23 13:00 | NUR ---
FAMILY STILL AT BEDSIDE, UPDATE GIVEN
--- NOTE | 2018-12-23 14:10 | NUR ---
PARTIAL BB LINEN CHANGE ADM. LARGE LOOSE BM NOTED.
--- NOTE | 2018-12-23 15:00 | NUR ---
REASSESSMENT COMPELTE PER FLOW SHEET. VSS. NO NEW CHANGES PT RESTING COMFORTABLY WILL CONTNIUE TO HUA
--- NOTE | 2018-12-23 15:20 | MORECARE ---
CASE MANAGEMENT DISCHARGE SUMMARY PATIENT: AMY DYER JR UNIT: [id number] ADM DATE: 12/02/18 AGE: 68 : 49 SEX: M ROOM/BED: D.2305 AUTHOR: GRAZYNA,DOC PHYSICIAN: REFERRING PHYSICIAN: DMITRIY SANDERS MD DATE OF SERVICE: 12/23/18 Discharge Plan Patient Name: AMY DYER Facility: [facility]:[place] : 1950 Planned Disposition: Care Home Facility Anticipated Discharge Date: Discharge Date: Expected LOS: Initial Reviewer: [email or web address] Initial Review Date: 12/02/2018 Generated: 12/23/18 4:19 pm Comments DCP- Discharge Planning Updated by [id number]: Mickie Roach on 12/22/18 1:[address] CM called and spoke with Vicky with [employer] (patient's shelter case manager) [phone]. Vicky stated that the patient isn't in APS custody therefore if family and physician agree to Hospice then that will be fine. CM also asked if she could tell me anything about whether patient's is capable of making decisions regarding patients care. Vicky stated that she didn't think that Rhoda had been seen yet that it was a new case. Vicky stated she has attempted twice to see Rhoda at hospital waiting area but she wasn't there either time. Rev. Malik Martinez is here today wanting information regarding Rhoda's shelter case manager. Vicky stated that it would be alright to give him Nanda number [phone]. CM spoke with Rev. Martinez and gave him the number for Nanda APS shelter case manager for Rhoda Dyer. Rhoda is currently staying with her brother -n- law Neftaly. Deonte Dyer (son) is on his way travelling via bus from [place]. Family will most likely make decision regarding Hospice once he arrives. CM will continue to follow and assist as needed with discharge planning / needs DCP- Discharge Planning Updated by [email or web address]: Mickie Roach on 12/19/18 4:[address] Family hasn't shown up yet for meeting with to make decision on hospice or terminal extubation. CM will continue to follow and assist as needed with discharge planning / needs. DCP- Discharge Planning Updated by [id number]: Mickie Roach on 12/18/18 6:[address] CM spoke with Vicky at [facility] this am regarding patient status. CM explained that the doctor is requesting a family meeting to discuss hospice. Meanwhile the patients brother Neftaly and Rhoda came by for a visit. Dr. Sanders spoke with the family and they stated that they would like to speak to his son Deonte before making any decisions. CM called daughter Sayda to see if they could come up and speak with doctor regarding patients diagnosis. They stated they would come sometime tomorrow to see doctor. CM explained that it would be nice if all the family could meet and hear what the doctor has to say and that way they could come to a decision together. Willie spoke up and said he just didn't want there to be any drama. CM stated at this time the family needed to come together and put their personal differences aside and think of the patients needs. CM will continue to follow and assist as needed with discharge planning / needs. DCP- Discharge Planning Updated by [id number]: Mickie Roach on 12/17/18 4:[address] CM received at call from patient's daughter Sayda [phone] and her . During the discussion it was noted that APS is involved in both the welfare of the patient (print finishing worker Vicky [phone] ext [phone]) and his Rhoda (print finishing worker Nanda Gatica [phone]). It was noted that the patient has taken care of all the financial obligations in the house hold prior to admission. He had it set up to where his couldn't access his money / checks. They don't have a checking account and he would gale his checks and pay in gale. Rhoda is trying to gale his social security check at this time. It was noted that she isn't able to take care of herself and that is why APS is involved. Sayda main concern is that since patient is currently on ventilator she is afraid that Rhoda will tell physicians and nursing staff to take him off vent without consulting the rest of the family. Family is awaiting APS to deem Rhoda () incapable of making life altering decisions for patient and herself. Patient is very critical at this time and physician is wanting to setup a family meeting to discuss options regarding possible hospice. CM will get in touch with [facility] case workers in am to let them know the current situation with patient and to see where the case currently is. CM will continue to follow and assist as needed with discharge planning / needs. DCP- Discharge Planning Updated by [email or web address]: Mickie Roach on 12/17/18 1:[address] CM received a call from [facility] that they have an active case on this patient and are requesting records. Vicky from [facility] [phone] fax [phone]. CM did inform Vicky that the current plan for patient upon discharge was [facility] in [place]. CM will continue to follow and assist as needed with discharge planning / needs. DCP- Discharge Planning Updated by [id number]: Mickie Roach on 12/17/18 12:[address] CM spoke with [facility] [employer] this am and faxed updated records. CM will continue to update Alba on patient status. CM will continue to follow and assist as needed with discharge planning / needs. DCP- Discharge Planning Updated by [id number]: Mickie Roach on 12/16/18 4:[address] CM attempted to call Alba O[facility]er to give update on patient. Alba wasn't available left message to call CM back. DCP- Discharge Planning Updated by [id number]: Maria Elena Edwards on 12/11/18 12:[address] Patient was transferred to ICU, Updated Alba on this she will follow up with [facility] the ICU CM DCP- Discharge Planning Updated by [email or web address]: Maria Elena Edwards on 12/11/18 11:[address] spoke with [facility] [employer] they are waiting on Auth DCP- Discharge Planning Updated by [id number]: Maria Elena Edwards on 12/10/18 6:[address] updated clinical sent to [facility] DCP- Discharge Planning Updated by [id number]: Maria Elena Edwards on 12/09/18 3:[address] ATTEMPTED TO CALL RICHARD (SON) BACK ASKED, BUT THERE WAS NOT AN ANSWER. RICHARD # [phone] DCP- Discharge Planning Updated by [id number]: Maria Elena Gomezken on 12/09/18 2:[address] KAYA SENT DCP- Discharge Planning Updated by [id number]: Maria Elena Edwards on 12/08/18 7:[address] updated clinicals sent to [facility] DCP- Discharge Planning Updated by [email or web address]: Janine Murphy on 12/07/18 5:[address] PRIMARY NURSE REPORTS THAT THE PATIENT'S CALLED AND SAID ALL THE UTILITIES ARE OFF AND THEY HAVE 3 DAYS TO GET THEIR BELONGINGS OUT. PATIENT IS VERY UPSET WANTING TO LEAVE. HE HAS A RAPID HEART RATE. HE IS IN UNCONTROLLED AFIB. TELEMETRY. STARTED CARDIZEM 30 MGM Q6H ON 12/06. HE ALSO HAS DECREASING H/H. IS ON 4/L NASAL O2. THE NURSE CALLED AND SPOKE WITH THE DAUGHTER. PATIENT'S IS WITH HER. REPORTEDLY THE PATIENT HAS A CHECK. HE MUST GALE TO PAY BILLS. QUESTION OF CIRCUMSTANCE OF HOUSING AND HIS CARE PRIOR TO ADMIT. POSSIBLE APS . REPORTEDLY THE PATIENT HAD BEEN HOME ALONE. WAS UNKEMPT ON ADMISSION. ?? MENTAL HEALTH ISSUES W/ . AMBULANCE CREW MAY HAVE DONE REPORT. WILL NEED TO F/U [facility]IN OFF[facility] IN [place] ON SATURDAY. DCP- Discharge Planning Updated by [id number]: Maria Elena Edwards on 12/04/18 3:[address] Patient Name: AMY DYER Admission Status: ER Accout number: [id number] Admission Date: 12-02-2018 : 1950 Admission Diagnosis: Attending: DMITRIY SANDERS Current LOS: 2 Anticipated DC Date: Planned Disposition: Care Home Facility Primary Insurance: [employer] MEDIC[employer] ADV Discharge Planning Comments: CM met with patient to assess discharge planning needs. Patient is alert and oriented to person and time. He stated that he can go home and he will be fine. He lives with his Rhoda and has a walker. I explained to him that therapy and nursing did not think he was safe to go home yet and will need to go to rehab, he said he would have help from his neighbor to help him move and he will be fine. Permission to call his . I called Rhoda his and she stated that she can not take care of him at home. He needs more help that she can give, talked to her about skilled facilities she state [facility] in [place] his her first choice I have sent referral to them. IMM also explained. CM will continue to follow and assist with DC planning Press Machine Feeder: Maria Elena Edwards DCPIA - Discharge Planning Initial Assessment Updated by [id number]: Maria Elena Edwards on 12/04/18 4:11 pm * Is the patient Alert and Oriented? Yes * PCP [facility] * [facility] * Preadmission Environment Home with Family * ADLs Partial Dependent * Partial ADLs (Assistance needed) Dressing Toileting * Equipment Rolling Walker * List name and contact numbers for known caregivers / representatives who currently or will assist patient after discharge: RHODA () [phone] * Verbal permission to speak to the caregivers and representatives has been obtained from the patient. Yes * Community resources currently utilized None * Additional services required to return to the preadmission environment? Yes * Can the patient safely return to the preadmission environment? No * Has this patient been hospitalized within the prior 30 days at any hospital? No Coverage Notice Reviewer: [email or web address] Merna Edwards Notice Issued Date-Time: 12/04/2018 16:00 Notice Type: IM Discharge Notice Notice Delivered To: Patient Relationship to Patient: Spouse Manager Event Name: rhoda Delivery Method: PHONE - Phone Kera Days: Prior Verbal Notification: Yes Recipient Understood Notice: Recipient Signature: Med Rec Note Co-signed by Attending: Coverage Notice Comment: Reviewer: [id number] Merna Edwards Notice Issued Date-Time: 12/04/2018 16:00 Notice Type: Patient Choice Letter Notice Delivered To: Family Member Relationship to Patient: Spouse Manager Event Name: Rhoda Delivery Method: PHONE - Phone Kera Days: Prior Verbal Notification: Yes Recipient Understood Notice: Recipient Signature: Med Rec Note Co-signed by Attending: Coverage Notice Comment: Last DP export: 12/22/18 1:19 p Patient Name: AMY DYER Page [id number] at 1520 All edits/amendments must be made on the electronic document DICTATION DATE: 12/23/181518 CONTROL TOWER OPERATOR: LEWIS 12/23/181518 RPT#: [id number] DC DATE: STATUS: ADM IN [facility] [address] [place] [address] END OF REPORT
[2018-12-23 16:31] LABS: CREATININE - URINE 29.1 mg/dL (30-125); PRO/CRE RATIO URINE 2.9 mg/g; PROTEIN - URINE 85.5 mg/dL (0.0-11.9)
[2018-12-23 17:12] LABS: APPEARANCE HAZY (CLEAR); BILIRUBIN NEGATIVE (NEGATIVE); COLOR YELLOW (YELLOW); GLUCOSE NEGATIVE (NEGATIVE); KETONE NEGATIVE (NEGATIVE); NITRITE NEGATIVE (NEGATIVE); PROTEIN TRACE mg/dL (NEGATIVE); SPECIFIC GRAVITY 1.015 (1.005-1.020); UROBILINOGEN NORMAL (NORMAL)
[2018-12-23 17:14] LABS: BACTERIA MANY /hpf (NONE SEEN)
--- NOTE | 2018-12-23 17:15 | NUR ---
NO VISITORS AT THIS TIME, PT RESTING COMFORTABLY, WILL CON'T TO MONITOR
--- NOTE | 2018-12-23 19:08 | MORECARE ---
CASE MANAGEMENT DISCHARGE SUMMARY PATIENT: AMY DYER JR UNIT: [id number] ADM DATE: 12/02/18 AGE: 68 : [birth year] SEX: M ROOM/BED: D.2305 AUTHOR: GRAZYNA,DOC PHYSICIAN: REFERRING PHYSICIAN: DMITRIY SANDERS MD DATE OF SERVICE: 12/23/18 Discharge Plan Patient Name: AMY DYER Facility: [facility]:[place] : 1950 Planned Disposition: [facility] Facility Anticipated Discharge Date: Discharge Date: Expected LOS: Initial Reviewer: [email or web address] Initial Review Date: 12/02/2018 Generated: 12/23/18 8:08 pm Comments DCP- Discharge Planning Updated by [id number]: Mickie Roach on 12/23/18 6:[address] CM was called to meet with family. Patient's son Chuy has arrived from [place]. Chuy has paperwork from [employer] requesting to get physician to sign stating that patient is incapable of signing for himself. Chuy is wanting his mother Rhoda to be able to get patient's check. CM spoke with Dr. Uriarte he isn't willing to sign form. Dr. Uriarte stated that once patient is extubated and off sedation then he can sign for himself. Dr. Uriarte doesn't feel comfortable d/t dynamics within this family. CM made nursing aware of decision since family isn't available at this time. CM was later called to patients room. Sayda patient's daughter was there requesting information. CM was unable to give any information since password was changed and Sayda didn't know the new password. CM will continue to follow and assist as needed with discharge planning / needs. DCP- Discharge Planning Updated by [email or web address]: Mickie Roach on 12/22/18 1:[address] CM called and spoke with Vicky with [employer]PS (patient's case resolution specialist) [phone]. Vicky stated that the patient isn't in APS custody therefore if family and physician agree to Hospice then that will be fine. CM also asked if she could tell me anything about whether patient's is capable of making decisions regarding patients care. Vicky stated that she didn't think that Rohda had been seen yet that it was a new case. Vicky stated she has attempted twice to see Rhoda at hospital waiting area but she wasn't there either time. Rev. Malik Martinez is here today wanting information regarding Rhoda's case resolution specialist. Vicky stated that it would be alright to give him Nanda number [phone]. CM spoke with Rev. Martinez and gave him the number for Nanda [facility] case resolution specialist for Rhoda Dyer. Rhoda is currently staying with her brother -n- law Higginbotham. Deonte Dyer (son) is on his way travelling via bus from [place]. Family will most likely make decision regarding Hospice once he arrives. CM will continue to follow and assist as needed with discharge planning / needs DCP- Discharge Planning Updated by [id number]: Mickie Roach on 12/19/18 4:[address] Family hasn't shown up yet for meeting with to make decision on hospice or terminal extubation. CM will continue to follow and assist as needed with discharge planning / needs. DCP- Discharge Planning Updated by [id number]: Mickie Roach on 12/18/18 6:[address] CM spoke with Vicky at [facility] this am regarding patient status. CM explained that the doctor is requesting a family meeting to discuss hospice. Meanwhile the patients brother Neftaly and Rhoda came by for a visit. Dr. Sanders spoke with the family and they stated that they would like to speak to his son Deonte before making any decisions. CM called daughter Sayda to see if they could come up and speak with doctor regarding patients diagnosis. They stated they would come sometime tomorrow to see doctor. CM explained that it would be nice if all the family could meet and hear what the doctor has to say and that way they could come to a decision together. Willie spoke up and said he just didn't want there to be any drama. CM stated at this time the family needed to come together and put their personal differences aside and think of the patients needs. CM will continue to follow and assist as needed with discharge planning / needs. DCP- Discharge Planning Updated by [id number]: Mickie Roach on 12/17/18 4:[address] CM received at call from patient's daughter Sayda [phone] and her . During the discussion it was noted that [facility]PS is involved in both the welfare of the patient (castables worker Vicky [phone]) and his Rhoda (castables worker Nanda Gatica [phone]). It was noted that the patient has taken care of all the financial obligations in the house hold prior to admission. He had it set up to where his couldn't access his money / checks. They don't have a checking account and he would gale his checks and pay in gale. Rhoda is trying to gale his social security check at this time. It was noted that she isn't able to take care of herself and that is why APS is involved. Sayda main concern is that since patient is currently on ventilator she is afraid that Rhoda will tell physicians and nursing staff to take him off vent without consulting the rest of the family. Family is awaiting APS to deem Rhoda () incapable of making life altering decisions for patient and herself. Patient is very critical at this time and physician is wanting to setup a family meeting to discuss options regarding possible hospice. CM will get in touch with [facility] case workers in am to let them know the current situation with patient and to see where the case currently is. CM will continue to follow and assist as needed with discharge planning / needs. DCP- Discharge Planning Updated by [id number]: Mickie Roach on 12/17/18 1:[address] CM received a call from [facility] that they have an active case on this patient and are requesting records. Vicky from [facility] [phone] fax [phone]. CM did inform Vicky that the current plan for patient upon discharge was [facility] in [place]. CM will continue to follow and assist as needed with discharge planning / needs. DCP- Discharge Planning Updated by [id number]: Mickie Roach on 12/17/18 12:[address] CM spoke with Alba @ [facility] this am and faxed updated records. CM will continue to update Alba on patient status. CM will continue to follow and assist as needed with discharge planning / needs. DCP- Discharge Planning Updated by [id number]: Mickie Roach on 12/16/18 4:[address] CM attempted to call Alba @ [facility] to give update on patient. Alba wasn't available left message to call CM back. DCP- Discharge Planning Updated by [id number]: Maria Elena Edwards on 12/11/18 12:[address] Patient was transferred to ICU, Updated Alba on this she will follow up with [facility] the ICU CM DCP- Discharge Planning Updated by [id number]: Maria Elena Edwards on 12/11/18 11:[address] spoke with Alba @ [facility] they are waiting on Auth DCP- Discharge Planning Updated by [id number]: Maria Elena Edwards on 12/10/18 6:[address] updated clinical sent to [facility]illo DCP- Discharge Planning Updated by [id number]: Maria Elena Edwards on 12/09/18 3:[address] ATTEMPTED TO CALL CHUY (SON) BACK ASKED, BUT THERE WAS NOT AN ANSWER. CHUY # [phone] DCP- Discharge Planning Updated by [id number]: Maria Elena Edwards on 12/09/18 2:[address] KAYA SENT DCP- Discharge Planning Updated by [email or web address]: Maria Elena Edwards on 12/08/18 7:[address] updated clinicals sent to [facility] DCP- Discharge Planning Updated by [id number]: Janine Murphy on 12/07/18 5:[address] PRIMARY NURSE REPORTS THAT THE PATIENT'S CALLED AND SAID ALL THE UTILITIES ARE OFF AND THEY HAVE 3 DAYS TO GET THEIR BELONGINGS OUT. PATIENT IS VERY UPSET WANTING TO LEAVE. HE HAS A RAPID HEART RATE. HE IS IN UNCONTROLLED AFIB. TELEMETRY. STARTED CARDIZEM 30 MGM Q6H ON 12/06. HE ALSO HAS DECREASING H/H. IS ON 4/L NASAL O2. THE NURSE CALLED AND SPOKE WITH THE DAUGHTER. PATIENT'S IS WITH HER. REPORTEDLY THE PATIENT HAS A CHECK. HE MUST GALE TO PAY BILLS. QUESTION OF CIRCUMSTANCE OF HOUSING AND HIS CARE PRIOR TO ADMIT. POSSIBLE APS . REPORTEDLY THE PATIENT HAD BEEN HOME ALONE. WAS UNKEMPT ON ADMISSION. ?? MENTAL HEALTH ISSUES W/ . AMBULANCE CREW MAY HAVE DONE REPORT. WILL NEED TO F/U [facility] MAIN OFFICE IN [place] ON SATURDAY. DCP- Discharge Planning Updated by [id number]: Maria Elena Edwards on 12/04/18 3:[address] Patient Name: AMY DYER Admission Status: ER Accout number: [id number] Admission Date: 12-02-2018 : 1950 Admission Diagnosis: Attending: DMITRIY SANDERS Current LOS: 2 Anticipated DC Date: Planned Disposition: [facility] Facility Primary Insurance: [employer] ADV Discharge Planning Comments: CM met with patient to assess discharge planning needs. Patient is alert and oriented to person and time. He stated that he can go home and he will be fine. He lives with his Rhoda and has a walker. I explained to him that therapy and nursing did not think he was safe to go home yet and will need to go to rehab, he said he would have help from his neighbor to help him move and he will be fine. Permission to call his . I called Rhoda his and she stated that she can not take care of him at home. He needs more help that she can give, talked to her about skilled facilities she state [facility] his her first choice I have sent referral to them. IMM also explained. CM will continue to follow and assist with DC planning Edge Grinder Machine: Maria Elena Edwards DCPIA - Discharge Planning Initial Assessment Updated by [email or web address]: Maria Elena Edwards on 12/04/18 4:11 pm * Is the patient Alert and Oriented? Yes * PCP [facility] * [facility] * Preadmission Environment Home with Family * ADLs Partial Dependent * Partial ADLs (Assistance needed) Dressing Toileting * Equipment Rolling Walker * List name and contact numbers for known caregivers / representatives who currently or will assist patient after discharge: RHODA () [phone] * Verbal permission to speak to the caregivers and representatives has been obtained from the patient. Yes * Community resources currently utilized None * Additional services required to return to the preadmission environment? Yes * Can the patient safely return to the preadmission environment? No * Has this patient been hospitalized within the prior 30 days at any hospital? No Coverage Notice Reviewer: [id number] - Maria Elena Edwards Notice Issued Date-Time: 12/04/2018 16:00 Notice Type: IM Discharge Notice Notice Delivered To: Patient Relationship to Patient: Spouse Archeology Faculty Member Name: rhoda Delivery Method: PHONE - Phone Kera Days: Prior Verbal Notification: Yes Recipient Understood Notice: Recipient Signature: Med Rec Note Co-signed by Attending: Coverage Notice Comment: Reviewer: [id number] - Maria Elena Edwards Notice Issued Date-Time: 12/04/2018 16:00 Notice Type: Patient Choice Letter Notice Delivered To: Family Member Relationship to Patient: Spouse Archeology Faculty Member Name: Rhoda Delivery Method: PHONE - Phone Kera Days: Prior Verbal Notification: Yes Recipient Understood Notice: Recipient Signature: Med Rec Note Co-signed by Attending: Coverage Notice Comment: Last DP export: 12/23/18 2:20 p Patient Name: AMY DYER Page [id number] at 1908 All edits/amendments must be made on the electronic document DICTATION DATE: 12/23/181907 PIN MAKER: LEWIS 12/23/181907 RPT#: [id number] [place] DATE: STATUS: ADM IN [facility] [address] [place] [address] END OF REPORT
--- NOTE | 2018-12-23 19:15 | NUR ---
REC'D TO CARE, SPOUT TENDER PER FLOWSHEET. PT ON MECH VENT, CALM, FOLLOWS COMMANDS. VSS. IVFS INFUSING TO R PICC, DSG C/D/I - SEE FLOWSHEET. B/L SOFT WRIST RESTRAINTS ON PER MD ORDERS - SEE FLOWSHEET. TF INFUSING TO OGT - SEE FLOWSHEET. WILL CONT Q2H TURN AND ORAL CARE, ALARMS ON AND PT IN SIGHT OF NURSE STATION.
--- NOTE | 2018-12-23 21:00 | NUR ---
FAMILY AT BS. UPDATE GIVEN AND QUESTIONS ANSWERED. REPORTED TO PER CM NOTE THAT DR. VEGA WOULD NOT SIGN FORMS REQUESTED UNTIL PT EXTUBATED AND POSSIBLE SIGN THEM HIMSELF.
--- NOTE | 2018-12-23 21:30 | NUR ---
DR. VEGA NOTIFIED OF PT FAMILY REQUESTING HOSPICE AND TERMINAL EXTUBATION IN AM FIRST THING.
--- NOTE | 2018-12-23 22:55 | NUR ---
REASSESSMENT PER FLOWSHEET. NO ACUTE CHANGES. REPOSITIONED UP IN BED WITH PILLOWS, PT RESTS FOR SHORT PERIODS AT A TIME.. NO SIGN OF DISTRESS. NODS HEAD APPROP AND ABLE TO CONVEY NEEDS. ALARMS ON.
[2018-12-24] VITALS (43 sets, daily range): BP systolic 77–136; BP diastolic 44–90
--- NOTE | 2018-12-24 01:00 | NUR ---
COMPLETE BATH AND LINEN CHANGE DONE. NGUYEN CARE DONE. LOTION TO DRY SKIN. HAIR WASHED.
--- NOTE | 2018-12-24 03:15 | NUR ---
REASSESSMENT PER FLOWSHEET, NO ACUTE CHANGES. WEANING LEVOPHED GTT PER ORDERS. ALARMS ON.
[2018-12-24 05:31] LABS: HEMATOCRIT 22.1 % (42.0-54.0); MCH 31.3 pg (26.0-34.0); MCV 94.8 fL (80.0-100.0); MEAN PLATELET VOLUME 11.4 fL (7.4-10.4); PLATELET COUNT 88 10x3/uL (130-400); RBC 2.33 10x6/uL (4.20-6.10); RDW 17.3 % (11.5-14.5); WBC 13.1 10x3/uL (4.8-10.8)
[2018-12-24 05:35] LABS: HEMOGLOBIN 7.3 g/dL (13.5-17.5)
[2018-12-24 05:48] LABS: ALBUMIN 1.9 g/dL (3.4-5.0); ANION GAP 15.7 mmol/L (8-16); BILIRUBIN - TOTAL 1.44 mg/dL (0.2-1.3); CALCIUM 7.8 mg/dL (8.5-10.1); CARBON DIOXIDE 20.2 mmol/L (21.0-32.0); CREATININE - SERUM 5.1 mg/dL (0.6-1.3); POTASSIUM - SERUM 3.9 mmol/L (3.5-5.1); PROTEIN - SERUM 5.8 g/dL (6.4-8.2)
--- NOTE | 2018-12-24 06:00 | NUR ---
LEVOPHED GTT WEANED OFF. VSS.
--- NOTE | 2018-12-24 07:20 | NUR ---
REPORT RECIEVED, SHIFT ASSESSMENT COMPLETE, PT IS SEDATED ON VENT, FOLLOWS COMMANDS, ON 40% FIO2 WITH 100% O2 SAT, ALL PPP, VSS, WILL CON'T TO MONITOR
--- NOTE | 2018-12-24 08:17 | NUR ---
DR. IGNACIO AT BEDSIDE, UPDATE GIVEN
[2018-12-24 08:26] LABS: EOSINOPHILS 1 % (0-7); LYMPHOCYTES 5 % (15-50); MONOCYTES 5 % (2-11); NEUTROPHILS 82 % (40-80)
[2018-12-24 08:27] LABS: ANISOCYTOSIS OCC; HYPOCHROMASIA OCC; PLATELET ESTIMATE DECREASED
--- NOTE | 2018-12-24 08:45 | NUR ---
Nutrition follow-up: Pt intubated, sedated Levophed off Suplena infusing @ 35 ml/hr Labs reviewed; renal function worse RDN following.
--- NOTE | 2018-12-24 11:00 | NUR ---
FAMILY AT BEDSIDE, SPOKE WITH DR ZALDIVAR ABOUT POC AND TERMINALL EXTUBATION, FAMILY PLANNING ON EXTUBATION
--- NOTE | 2018-12-24 11:20 | NUR ---
PT TERMINALLY EXUTBATED AT THIS TIME, FAMILY AT BEDSIDE,
--- NOTE | 2018-12-24 12:13 | NUR ---
PT ASYSTOLE ON THE MONITOR, FAMILY AT BEDSIDE
--- NOTE | 2018-12-24 12:30 | NUR ---
DR. RUSSO HERE TO PRONOUNCE
--- NOTE | 2018-12-24 12:44 | NUR ---
MILENA NOTIFIED OF PT
--- NOTE | 2018-12-24 12:50 | NUR ---
HOME NOTIFIED OF NEED OF SERVICES
--- NOTE | 2018-12-24 13:19 | NUR ---
HOME HERE FOR PT
--- NOTE | 2018-12-24 19:26 | MORECARE ---
CASE MANAGEMENT DISCHARGE SUMMARY PATIENT: AMY DYER JR UNIT: [id number] ADM DATE: 12/02/18 AGE: 68 : 49 SEX: M ROOM/BED: D.2305 AUTHOR: GRAZYNA,DOC PHYSICIAN: REFERRING PHYSICIAN: DMITRIY SANDERS MD DATE OF SERVICE: 12/24/18 Discharge Plan Patient Name: AMY DYER Facility: [facility]:[place] : 1950 Planned Disposition: Senior Living Facility Anticipated Discharge Date: Discharge Date: 12/24/2018 Expected LOS: Initial Reviewer: [email or web address] Initial Review Date: 12/02/2018 Generated: 12/24/18 8:26 pm Comments DCP- Discharge Planning Updated by [email or web address]: Mickie Roach on 12/23/18 6:[address] CM was called to meet with family. Patient's son Chuy has arrived from [place]. Chuy has paperwork from [employer] requesting to get physician to sign stating that patient is incapable of signing for himself. Chuy is wanting his mother Rhoda to be able to get patient's check. CM spoke with Dr. Uriarte he isn't willing to sign form. Dr. Uriarte stated that once patient is extubated and off sedation then he can sign for himself. Dr. Uriarte doesn't feel comfortable d/t dynamics within this family. CM made nursing aware of decision since family isn't available at this time. CM was later called to patients room. Sayda patient's daughter was there requesting information. CM was unable to give any information since password was changed and Sayda didn't know the new password. CM will continue to follow and assist as needed with discharge planning / needs. DCP- Discharge Planning Updated by [email or web address]: Mickie Roach on 12/22/18 1:[address] CM called and spoke with Vicky with [employer] (patient's case management director) [phone]. Vicky stated that the patient isn't in APS custody therefore if family and physician agree to Hospice then that will be fine. CM also asked if she could tell me anything about whether patient's is capable of making decisions regarding patients care. Vicky stated that she didn't think that Rhoda had been seen yet that it was a new case. Vicky stated she has attempted twice to see Rhoda at hospital waiting area but she wasn't there either time. Rev. Malik Martinez is here today wanting information regarding Rhoda's case management director. Vicky stated that it would be alright to give him Nanda number [phone]. CM spoke with Rev. Martinez and gave him the number for Nanda [facility] case management director for Rhoda Dyer. Rhoda is currently staying with her brother -n- law Higginbotham. Deonte Dyer (son) is on his way travelling via bus from [place]. Family will most likely make decision regarding Hospice once he arrives. CM will continue to follow and assist as needed with discharge planning / needs DCP- Discharge Planning Updated by [id number]: Mickie Roach on 12/19/18 4:[address] Family hasn't shown up yet for meeting with to make decision on hospice or terminal extubation. CM will continue to follow and assist as needed with discharge planning / needs. DCP- Discharge Planning Updated by [id number]: Mickie Roach on 12/18/18 6:[address] CM spoke with Vicky at [facility] this am regarding patient status. CM explained that the doctor is requesting a family meeting to discuss hospice. Meanwhile the patients brother Neftaly and Rhoda came by for a visit. Dr. Sanders spoke with the family and they stated that they would like to speak to his son eDonte before making any decisions. CM called daughter Sayda to see if they could come up and speak with doctor regarding patients diagnosis. They stated they would come sometime tomorrow to see doctor. CM explained that it would be nice if all the family could meet and hear what the doctor has to say and that way they could come to a decision together. Willie spoke up and said he just didn't want there to be any drama. CM stated at this time the family needed to come together and put their personal differences aside and think of the patients needs. CM will continue to follow and assist as needed with discharge planning / needs. DCP- Discharge Planning Updated by [id number]: Mickie Roach on 12/17/18 4:[address] CM received at call from patient's daughter Sayda [phone] and her . During the discussion it was noted that [facility] is involved in both the welfare of the patient (adz worker Vicky [phone] ext [phone]) and his Rhoda (adz worker Nanda Gatica [phone]). It was noted that the patient has taken care of all the financial obligations in the house hold prior to admission. He had it set up to where his couldn't access his money / checks. They don't have a checking account and he would gale his checks and pay in gale. Rhoda is trying to gale his social security check at this time. It was noted that she isn't able to take care of herself and that is why APS is involved. Sayda main concern is that since patient is currently on ventilator she is afraid that Rhoda will tell physicians and nursing staff to take him off vent without consulting the rest of the family. Family is awaiting [employer]PS to deem Rhoda () incapable of making life altering decisions for patient and herself. Patient is very critical at this time and physician is wanting to setup a family meeting to discuss options regarding possible hospice. CM will get in touch with [facility] case workers in am to let them know the current situation with patient and to see where the case currently is. CM will continue to follow and assist as needed with discharge planning / needs. DCP- Discharge Planning Updated by [email or web address]: Mickie Roach on 12/17/18 1:[address] CM received a call from [facility] that they have an active case on this patient and are requesting records. Vicky from [facility] [phone] fax [phone]. CM did inform Vicky that the current plan for patient upon discharge was [facility] in [place]. CM will continue to follow and assist as needed with discharge planning / needs. DCP- Discharge Planning Updated by [email or web address]: Mickie Roach on 12/17/18 12:[address] CM spoke with Alba @ [facility] this am and faxed updated records. CM will continue to update Alba on patient status. CM will continue to follow and assist as needed with discharge planning / needs. DCP- Discharge Planning Updated by [email or web address]: Mickie Roach on 12/16/18 4:[address] CM attempted to call Alba @ [facility] to give update on patient. Alba wasn't available left message to call CM back. DCP- Discharge Planning Updated by [id number]: Maria Elena Edwards on 12/11/18 12:[address] Patient was transferred to ICU, Updated Alba on this she will follow up with [facility] the ICU CM DCP- Discharge Planning Updated by [id number]: Maria Elena Edwards on 12/11/18 11:[address] spoke with Alba @ [facility] they are waiting on Auth DCP- Discharge Planning Updated by [email or web address]: Maria Elena Edwards on 12/10/18 6:[address] updated clinical sent to [facility] DCP- Discharge Planning Updated by [email or web address]: Maria Elena Edwards on 12/09/18 3:[address] ATTEMPTED TO CALL CHUY (SON) BACK ASKED, BUT THERE WAS NOT AN ANSWER. CHUY # [phone] DCP- Discharge Planning Updated by [email or web address]: Maria Elena Edwards on 12/09/18 2:[address] KAYA SENT DCP- Discharge Planning Updated by [email or web address]: Maria Elena Edwards on 12/08/18 7:[address] updated clinicals sent to [facility] DCP- Discharge Planning Updated by [id number]: Janine Murphy on 12/07/18 5:[address] PRIMARY NURSE REPORTS THAT THE PATIENT'S CALLED AND SAID ALL THE UTILITIES ARE OFF AND THEY HAVE 3 DAYS TO GET THEIR BELONGINGS OUT. PATIENT IS VERY UPSET WANTING TO LEAVE. HE HAS A RAPID HEART RATE. HE IS IN UNCONTROLLED AFIB. TELEMETRY. STARTED CARDIZEM 30 MGM Q6H ON 12/06. HE ALSO HAS DECREASING H/H. IS ON 4/L NASAL O2. THE NURSE CALLED AND SPOKE WITH THE DAUGHTER. PATIENT'S IS WITH HER. REPORTEDLY THE PATIENT HAS A CHECK. HE MUST GALE TO PAY BILLS. QUESTION OF CIRCUMSTANCE OF HOUSING AND HIS CARE PRIOR TO ADMIT. POSSIBLE APS . REPORTEDLY THE PATIENT HAD BEEN HOME ALONE. WAS UNKEMPT ON ADMISSION. ?? MENTAL HEALTH ISSUES W/ . AMBULANCE CREW MAY HAVE DONE REPORT. WILL NEED TO F/U [facility] MAIN OFFICE IN [place] ON SATURDAY. DCP- Discharge Planning Updated by [id number]: Maria Elena Edwards on 12/04/18 3:[address] Patient Name: AMY DYER Admission Status: ER Accout number: [id number] Admission Date: 12-02-2018 : 1950 Admission Diagnosis: Attending: DMITRIY SANDERS Current LOS: 2 Anticipated DC Date: Planned Disposition: Senior Living Facility Primary Insurance: [employer] ADV Discharge Planning Comments: CM met with patient to assess discharge planning needs. Patient is alert and oriented to person and time. He stated that he can go home and he will be fine. He lives with his Rhoda and has a walker. I explained to him that therapy and nursing did not think he was safe to go home yet and will need to go to rehab, he said he would have help from his neighbor to help him move and he will be fine. Permission to call his . I called Rhoda his and she stated that she can not take care of him at home. He needs more help that she can give, talked to her about skilled facilities she state [facility] in [place] his her first choice I have sent referral to them. IMM also explained. CM will continue to follow and assist with DC planning Shaft Mechanic: Maria Elena Edwards DCPIA - Discharge Planning Initial Assessment Updated by [email or web address]: Maria Elena Edwards on 12/04/18 4:11 pm * Is the patient Alert and Oriented? Yes * PCP [facility] * [facility] * Preadmission Environment Home with Family * ADLs Partial Dependent * Partial ADLs (Assistance needed) Dressing Toileting * Equipment Rolling Walker * List name and contact numbers for known caregivers / representatives who currently or will assist patient after discharge: RHODA () [phone] * Verbal permission to speak to the caregivers and representatives has been obtained from the patient. Yes * Community resources currently utilized None * Additional services required to return to the preadmission environment? Yes * Can the patient safely return to the preadmission environment? No * Has this patient been hospitalized within the prior 30 days at any hospital? No Coverage Notice Reviewer: [id number] - Maria Elena Edwards Notice Issued Date-Time: 12/04/2018 16:00 Notice Type: IM Discharge Notice Notice Delivered To: Patient Relationship to Patient: Spouse Leaf Tier Name: rhoda Delivery Method: PHONE - Phone Kera Days: Prior Verbal Notification: Yes Recipient Understood Notice: Recipient Signature: Med Rec Note Co-signed by Attending: Coverage Notice Comment: Reviewer: [email or web address] - Maria Elena Edwards Notice Issued Date-Time: 12/04/2018 16:00 Notice Type: Patient Choice Letter Notice Delivered To: Family Member Relationship to Patient: Spouse Leaf Tier Name: Rhoda Delivery Method: PHONE - Phone Kera Days: Prior Verbal Notification: Yes Recipient Understood Notice: Recipient Signature: Med Rec Note Co-signed by Attending: Coverage Notice Comment: Last DP export: 12/23/18 6:08 p Patient Name: AMY DYER Page [id number] at 1927 All edits/amendments must be made on the electronic document DICTATION DATE: 12/24/181924 GLUE LINE OPERATOR: LEWIS 12/24/181924 RPT#: [id number] DC DATE:12/24/18 STATUS: DIS IN [facility] [address] [place] [address] END OF REPORT
--- NOTE | 2018-12-29 15:58 | NUR ---
Per CMS protocol, restraint report logged into data base.
[2019-02-12 11:08] LABS: ACID FAST CULTURE Negative (()); ACID FAST SMEAR Negative (())
== END 2018-12-24 12:30 | DRG 469 ==
LOC: D.ER 03:12 → D.EDHOLD 05:32 → D.ICU 05:32 → D.MS 05:32 → D.ICU 12-11 13:38
PROVIDERS: Family Medicine; General Practice; Internal Medicine Hematology & Oncology; Internal Medicine Nephrology; Internal Medicine Pulmonary Disease; Orthopaedic Surgery; ADMIT Internal Medicine Nephrology; ATTEND Internal Medicine Nephrology
PROC: 0SR90JZ Replacement of Right Hip Joint with Synthetic Substitute, Open Approach (ICD-10-PCS; principal; 2018-12-03 07:00)
PROC: 0WB83ZX Excision of Chest Wall, Percutaneous Approach, Diagnostic (ICD-10-PCS; 2018-12-15)
PROC: 05HY33Z Insertion of Infusion Device into Upper Vein, Percutaneous Approach (ICD-10-PCS; 2018-12-16)
PROC: 5A1945Z Respiratory Ventilation, 24-96 Consecutive Hours (ICD-10-PCS; 2018-12-17)
PROC: 0BH17EZ Insertion of Endotracheal Airway into Trachea, Via Natural or Artificial Opening (ICD-10-PCS; 2018-12-17)
PROC: 0B9F7ZX Drainage of Right Lower Lung Lobe, Via Natural or Artificial Opening, Diagnostic (ICD-10-PCS; 2018-12-19)
DX: S72.041A Displaced fracture of base of neck of right femur, initial encounter for closed fracture (principal); G92 Toxic encephalopathy; J96.01 Acute respiratory failure with hypoxia; E43 Unspecified severe protein-calorie malnutrition; D62 Acute posthemorrhagic anemia; N17.9 Acute kidney failure, unspecified; N39.0 Urinary tract infection, site not specified; C34.92 Malignant neoplasm of unspecified part of left bronchus or lung; W19.XXXA Unspecified fall, initial encounter; Y93.9 Activity, unspecified; Y92.009 Unspecified place in unspecified non-institutional (private) residence as the place of occurrence of the external cause; D53.9 Nutritional anemia, unspecified; Z85.110 Personal history of malignant carcinoid tumor of bronchus and lung; I25.10 Atherosclerotic heart disease of native coronary artery without angina pectoris; Z95.5 Presence of coronary angioplasty implant and graft; I48.91 Unspecified atrial fibrillation; Z79.01 Long term (current) use of anticoagulants; J44.9 Chronic obstructive pulmonary disease, unspecified; I73.9 Peripheral vascular disease, unspecified; E53.8 Deficiency of other specified B group vitamins